=== PATIENT | male | born 1950 | race Caucasian/White ===

== ENCOUNTER 2017-01-19 19:20 | Emergency (ER) | payer MEDICARE ==
[~2017-01-19] VITALS: Ht 170.2 cm; Wt 65.0 kg
[~2017-01-19 19:20] MED LIST: ALPR0.5T3 PO; ASPI1TAB69 PO; BELL1TAB PO; LISI10TA3 PO; ROSU20 PO; TRIA.025%T TOPICAL; VENTAER INH; VITA500T PO; VITA60003; VITATAB11; ZETI10TA5 PO; ZITHTAB PO
[2017-01-19 19:22] VITALS: BP 174/84; PULSE 86; RESP 16; TEMP 98.6; O2SAT 95
--- NOTE | 2017-01-19 20:16 | PD ---
Physical Exam Time Seen by Provider: 20:13 Narrative 66 y/o male presents for evaluation of intermittent substernal cp for the past few days. denies CP at this time. Denies sob/diaphoresis/uri symptoms/nausea or vomiting. vss Seen at triage desk. Awaiting bed placement. Data Data Last Documented VS Vital Signs Date Time Temp Pulse Resp B/P Pulse Ox O2 Delivery O2 Flow Rate FiO2 01/19/17 19:22 98.6 86 16 174/84 95 Room Air [facility] Medical Record Reviewed: Yes Supervised Visit with CYNTHIA: Brandon Tang January 19, 2017 20:16
[2017-01-19] MEDS ORDERED: SODIUM CHLORIDE 0.9% FLUSH 10 ML FLUSH IVF PRN (21:15)
--- NOTE | 2017-01-19 21:17 | PD ---
HPI Chief Complaint: Chest Pain Time Seen by Provider: 21:13 Travel History International Travel<30 days: No Contact w/Intl Traveler<30days: No Traveled to known affect area: No History of Present Illness HPI Patient comes to the emergency Department for evaluation of right-sided upper chest pain ongoing intermittently over the past 3 days. Patient is a sharp stabbing-like in nature without radiation. Patient does take an aspirin a day and took it today. Patient reports he took a Zantac seem to help a little bit with his symptoms. Patient denies anything making it worse. Denies any shortness of breath, diaphoresis, nausea, vomiting, back pain, numbness or tingling anywhere, trauma, or fevers. Patient states initially the pain would come and go however has become more constant. Patient reports he did have a heart attack when he was 46, but this does not feel similar. Denies any change in pain with movement, deep inspiration, eating, leaning forward, or laying flat. Denies any dyspnea on exertion. PFSH Past Medical History Cardiovascular Problems: Yes ([place] age 46) High Cholesterol: Yes COPD: Yes Hypertension: Yes Social History Alcohol Use: Yes (occasional) Tobacco Use: Yes Allergies-Medications (Allergen,Severity, Reaction): Coded Allergies: Lopressor (Verified Adverse Reaction, Severe, Hypotension, 01/19/17) Reported Meds & Prescriptions Reported Meds & Active Scripts Active Crestor (Rosuvastatin Calcium) 20 Mg Tab 20 Mg PO DAILY Lisinopril 10 Mg Tab 10 Mg PO DAILY Triamcinolone Topical (Triamcinolone Acetonide) 0.025% Cream 1 Applic TOPICAL BID Reported Vitamin E (Vitamin E (Topical)) 100 Unit/Gm Cre Vitamin C (Ascorbic Acid) 500 Mg Tab 500 Mg PO Vitamin B Complex (B-Complex Vitamins) 1 Tab Aspirin 81 Mg Tabdr 81 Mg PO DAILY Ventolin Hfa 18 GM Inh (Albuterol Sulfate) 90 Mcg/Act Aer 2 Puff INH Q4-6H PRN Alprazolam 0.5 Mg Tab 0.5 Mg PO Q8H PRN Review of Systems Except as stated in HPI: all other systems reviewed are Neg Physical Exam Narrative GENERAL: Well-developed, well nourished, in no acute distress, and non-ill appearing. SKIN: Focused skin assessment warm and dry. HEAD: Atraumatic. Normocephalic. EYES: Pupils equal and round. EOMI. No scleral icterus. No injection or drainage. ENT: No nasal bleeding or discharge. Mucous membranes pink and moist. NECK: Trachea midline. No JVD. Supple. No nuclear rigidity. CARDIOVASCULAR: Regular rate and rhythm. No murmur appreciated. Radial pulses 2+, intact, and equal bilaterally. RESPIRATORY: No accessory muscle use. No respiratory distress. Clear to auscultation. Breath sounds equal bilaterally. GASTROINTESTINAL: Abdomen soft, non-tender, nondistended. Hepatic and splenic margins not palpable. No pulsatile mass. MUSCULOSKELETAL: No obvious deformities. No clubbing. No cyanosis. No edema. Full range of motion. NEUROLOGICAL: Awake and alert. No obvious cranial nerve deficits. Motor grossly within normal limits. Normal speech. PSYCHIATRIC: Appropriate mood and affect; insight and judgment normal. Data Data Last Documented VS Vital Signs Date Time Temp Pulse Resp B/P Pulse Ox O2 Delivery O2 Flow Rate FiO2 01/19/17 23:00 65 16 142/90 97 01/19/17 21:23 Room Air 01/19/17 19:22 98.6 Orders Electrocardiogram (01/19/17 ) Basic Metabolic Panel (Bmp) (01/19/17 21:12) Ckmb (Isoenzyme) Profile (01/19/17 21:12) Complete Blood Count With Diff (01/19/17 21:12) Magnesium (Mg) (01/19/17 21:12) Prothrombin Time / Inr (Pt) (01/19/17 21:12) Act Partial Throm Time (Ptt) (01/19/17 21:12) Troponin I (01/19/17 21:12) Chest, Single Ap (01/19/17 21:12) Ecg Monitoring (01/19/17 21:12) Bilateral Bp Monitoring (01/19/17 21:12) Iv Access Insert/Monitor (01/19/17 21:12) Oximetry (01/19/17 21:12) Oxygen Administration (01/19/17 21:12) Sodium Chloride 0.9% Flush (Ns Flush) (01/19/17 21:15) Labs Laboratory Tests Test 01/19/17 21:15 White Blood Count 9.7 TH/MM3 Red Blood Count 5.47 MIL/MM3 Hemoglobin 16.6 GM/DL Hematocrit 49.8 % Mean Corpuscular Volume 91.1 FL Mean Corpuscular Hemoglobin 30.3 PG Mean Corpuscular Hemoglobin 33.3 % Concent Red Cell Distribution Width 13.3 % Platelet Count 248 TH/MM3 Mean Platelet Volume 8.2 FL Neutrophils (%) (Auto) 53.1 % Lymphocytes (%) (Auto) 28.8 % Monocytes (%) (Auto) 9.7 % Eosinophils (%) (Auto) 5.9 % Basophils (%) (Auto) 2.5 % Neutrophils # (Auto) 5.2 TH/MM3 Lymphocytes # (Auto) 2.8 TH/MM3 Monocytes # (Auto) 0.9 TH/MM3 Eosinophils # (Auto) 0.6 TH/MM3 Basophils # (Auto) 0.2 TH/MM3 CBC Comment DIFF FINAL Differential Comment Prothrombin Time 10.2 SEC Prothromb Time International 0.9 RATIO Ratio Activated Partial 28.8 SEC Thromboplast Time Sodium Level 137 MEQ/L Potassium Level 4.5 MEQ/L Chloride Level 103 MEQ/L Carbon Dioxide Level 27.0 MEQ/L Anion Gap 7 MEQ/L Blood Urea Nitrogen 17 MG/DL Creatinine 1.26 MG/DL Estimat Glomerular Filtration 58 ML/MIN Rate Random Glucose 86 MG/DL Calcium Level 8.9 MG/DL Magnesium Level 2.4 MG/DL Total Creatine Kinase 98 U/L Troponin I LESS THAN 0.02 NG/ML MDM Medical Decision Making Medical Screen Exam Complete: Yes Emergency Medical Condition: Yes Interpretation(s) EKG reviewed by Dr. Feldman shows sinus rhythm with a ventricular rate of 80. No STEMI. Differential Diagnosis Acute coronary syndrome, angina, pneumonia, electrolyte abnormality, other Narrative Course The patients chest pain by history and evaluation appears noncardiac, nor noncardiopulmonary in etiology. Evaluation revealed no evidence of cardiac involvement at this time. There is no clinical evidence to suggest thoracic aortic aneurysm or pathology, nor evidence to suggest pulmonary embolism, pericarditis, pneumothorax, nor pneumonia at this time. The patient has minimal risk factors for cardiac disease, pulmonary embolism or aortic disease. Clinical suspicion was discussed with patient and the patient was referred to and instructed to follow up with Cardiology for potential outpatient evaluation. I discussed this management with the patient and the patient understands the importance or acute follow up with cardiology for possible outpatient stress testing. The patient was instructed to return at any time if chest pain recurs, persists, changes or worsens in anyway while awaiting follow up. The patient agreed with plan. Patient in no obvious distress upon re-evaluation. All pertinent laboratory/ Radiology result(s) discussed with patient/family. Discussed patient with Dr. Feldman prior to discharge, who is in agreement with plan of care and disposition. Any questions/concerns in reference to patient diagnosis/condition discussed and clarified prior to patient's discharge. Reinforced sheer importance of close follow up with patient's primary physician or primary care clinic. Instructed patient to return to ED immediately, if symptoms return/ worsen. Pt showed understanding of above instructions. Further instructions and recommendations were detailed in discharge paperwork. Pt ambulated without difficulty out of ED at discharge. 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 Return to the emergency department if symptoms get worse. Disposition: 01 DISCHARGE HOME Condition: Stable Kushal Henry January 19, 2017 21:17
[2017-01-19 21:22] VITALS: O2SAT 95
[2017-01-19 21:34] VITALS: BP_SYST 123; BP_SYST 147; BP_DIAS 81; BP_DIAS 84; PULSE 65; PULSE 67; RESP 16
--- NOTE | 2017-01-19 21:40 | RADRPT ---
EXAM DATE/TIME: 01/19/2017 21:09 [facility] COMPARISON: No previous studies available for comparison. INDICATIONS : Right upper chest pain. MEDICAL HISTORY : Chronic obstructive pulmonary disease. Smoking. SURGICAL HISTORY : Angioplasty. ENCOUNTER: Initial ACUITY: 3 days PAIN SCORE: 6/10 LOCATION: Right upper chest FINDINGS: A single view of the chest demonstrates the lungs to be symmetrically aerated without evidence of mas s, infiltrate or effusion. The cardiomediastinal contours are unremarkable. Osseous structures are intact. CONCLUSION: No evidence of acute cardiopulmonary disease. Tommie Tran MD on January 19, 2017 at 21:38 Board Certified Radiologist. This report was verified electronically.
[2017-01-19 22:20] LABS: AUTOMATED NEUTROPHIL # 5.2 TH/MM3 (1.8-7.7); BASOPHIL # 0.2 TH/MM3 (0-0.2); BASOPHIL % 2.5 % (0.0-2.0); EOSINOPHIL # 0.6 TH/MM3 (0-0.4); EOSINOPHIL % 5.9 % (0.0-4.0); HEMATOCRIT 49.8 % (39.0-51.0); HEMO FLAGS DIFF FINAL; LYMPH % 28.8 % (9.0-44.0); LYMPHOCYTE # 2.8 TH/MM3 (1.0-4.8); MEAN CELL VOLUME 91.1 FL (80.0-100.0); MEAN CORPUSCULAR HEMOGLOBIN 30.3 PG (27.0-34.0); MEAN CORPUSCULAR HGB CONC 33.3 % (32.0-36.0); MONO % 9.7 % (0.0-8.0); NEUT % 53.1 % (16.0-70.0); PLATELET COUNT 248 TH/MM3 (150-450); RED BLOOD COUNT 5.47 MIL/MM3 (4.50-5.90); RED CELL DISTRIBUTION WIDTH 13.3 % (11.6-17.2); WHITE BLOOD COUNT 9.7 TH/MM3 (4.0-11.0)
[2017-01-19 22:32] LABS: ANION GAP 7 MEQ/L (5-15); BLOOD UREA NITROGEN 17 MG/DL (7-18); CHLORIDE 103 MEQ/L (98-107); GLOMERULAR FILTRATION RATE 58 ML/MIN (>89); MAGNESIUM 2.4 MG/DL (1.5-2.5); POTASSIUM 4.5 MEQ/L (3.5-5.1); SODIUM (NA) 137 MEQ/L (136-145)
[2017-01-19 22:33] LABS: APTT (PATIENT) 28.8 SEC (24.3-30.1); INTERNATIONAL NORMALIZED RATIO 0.9 RATIO; PROTHROMBIN TIME - PATIENT 10.2 SEC (9.8-11.6)
--- NOTE | 2017-01-19 22:33 | EKG ---
Date Performed: 01/19/2017 Time Performed: 20:32:37 PTAGE: 66 years EKG: Sinus rhythm NONSPECIFIC ST & T-WAVE ABNORMALITY BORDERLINE ECG NO PREVIOUS TRACING DOCTOR: Isac Jackson Interpretating Date/Time 01/19/2017 22:32:23
[2017-01-19 22:40] LABS: CREATINE KINASE 98 U/L (39-308)
[2017-01-19 23:00] VITALS: BP 142/90; PULSE 65; RESP 16; O2SAT 97
[2017-02-09] MEDS ORDERED: VENTAER INH (12:01)
[2017-02-10] MEDS ORDERED: ALBUAER3 INH (12:10)
== END 2017-01-19 23:09 | disposition home or self-care (01) ==
LOC: NEPE 19:20
DX: R07.89 Other chest pain (principal); E78.00 Pure hypercholesterolemia, unspecified; J44.9 Chronic obstructive pulmonary disease, unspecified; I10 Essential (primary) hypertension; Z72.0 Tobacco use; Z79.82 Long term (current) use of aspirin
CPT/HCPCS: 71010; 80048; 82550; 83735; 84484; 85025; 85610; 85730; 93005

== ENCOUNTER 2018-02-02 20:55 | Inpatient (IN) | payer MEDICARE ==
[~2018-02-02] VITALS: Ht 170.2 cm; Wt 60.5 kg
[~2018-02-02 20:55] MED LIST changes: +ALBUAER3 INH; -BELL1TAB PO; +EZET10 PO; +SYMB80AE INH; -VENTAER INH; -ZETI10TA5 PO; -ZITHTAB PO
[2018-02-02 20:58] VITALS: BP 126/77; PULSE 75; RESP 18; TEMP 97.6; O2SAT 95
[2018-02-02] MEDS ORDERED: ASPI81CH6 CHEW (21:08)
[2018-02-02] MEDS ORDERED: ASCO500T PO (21:08)
--- NOTE | 2018-02-02 21:13 | PD ---
HPI Chief Complaint: Chest Pain Time Seen by Provider: 20:58 Travel History International Travel<30 days: No Contact w/Intl Traveler<30days: No Traveled to known affect area: No History of Present Illness HPI 67yo M with PMH of COPD, HTN presents to the ED with c/o midsternal chest pain that started about an hour ago. Said pain is achy, nonradiating and moderately severe. Associated with diaphoresis, sob, and nausea. Denies any fever, cough , vomiting, abdominal pain, focal weakness or numbness. Pt was seen in 01/2017 for atypical chest pain but did not follow up with third hand. Said he had cardiac cath 1995 and did not have stent place. Has not had recent stress test. PFSH Past Medical History Anxiety: Yes Cardiac Catheterization: Yes Cardiovascular Problems: Yes ([place] age 46) High Cholesterol: Yes COPD: Yes Coronary Artery Disease: Yes Hypertension: Yes Tetanus Vaccination: Unknown Influenza Vaccination: No Past Surgical History Other Surgery: Yes (ILIAC ARTERY STENT) Social History Alcohol Use: No Tobacco Use: Yes Substance Use: No Allergies-Medications (Allergen,Severity, Reaction): Coded Allergies: metoprolol (Verified Adverse Reaction, Severe, Hypotension, 02/02/18) Reported Meds & Prescriptions Reported Meds & Active Scripts Active Crestor (Rosuvastatin Calcium) 20 Mg Tab 20 Mg PO DAILY Lisinopril 10 Mg Tab 10 Mg PO DAILY Symbicort Inh (Budesonide/Formoterol Fumarate) 80-4.5 Mcg/Act Aero 2 Puff INH Q12HR Proair Hfa 8.5 GM Inh (Albuterol Sulfate) 90 Mcg/Act Aer 2 Puff INH Q4-6H PRN 108 mcg/actuation Triamcinolone Topical (Triamcinolone Acetonide) 0.025% Cream 1 Applic TOPICAL BID Reported Aspirin Low Dose (Aspirin) 81 Mg Chew 81 Mg CHEW DAILY Ascorbic Acid 500 Mg Tab 500 Mg PO DAILY Zetia (Ezetimibe) 10 Mg Tab 10 Mg PO DAILY Vitamin E (Vitamin E (Topical)) 100 Unit/Gm Cre Vitamin B Complex (B-Complex Vitamins) 1 Tab Alprazolam 0.5 Mg Tab 0.5 Mg PO Q8H PRN Review of Systems Except as stated in HPI: all other systems reviewed are Neg Physical Exam Narrative GENERAL: 67yo M in mild distress. SKIN: Focused skin assessment warm/dry. HEAD: Atraumatic. Normocephalic. EYES: Pupils equal and round. No scleral icterus. No injection or drainage. ENT: No nasal bleeding or discharge. Mucous membranes pink and moist. NECK: Trachea midline. No JVD. CARDIOVASCULAR: Regular rate and rhythm. No murmur appreciated. RESPIRATORY: No accessory muscle use. Clear to auscultation. Breath sounds equal bilaterally. GASTROINTESTINAL: Abdomen soft, non-tender, nondistended. H MUSCULOSKELETAL: No obvious deformities. No clubbing. No cyanosis. No edema. NEUROLOGICAL: Awake and alert. No obvious cranial nerve deficits. Motor grossly within normal limits. Normal speech. PSYCHIATRIC: Appropriate mood and affect; insight and judgment normal. Data Data Last Documented VS Vital Signs Date Time Temp Pulse Resp B/P (MAP) Pulse Ox O2 Delivery O2 Flow Rate FiO2 02/02/18 22:10 81 18 166/87 (113) 97 Nasal Cannula 2.00 02/02/18 20:58 97.6 Orders Orders Basic Metabolic Panel (Bmp) (02/02/18 21:06) Complete Blood Count With Diff (02/02/18 21:06) Magnesium (Mg) (02/02/18 21:06) Prothrombin Time / Inr (Pt) (02/02/18 21:06) Act Partial Throm Time (Ptt) (02/02/18 21:06) Troponin I (02/02/18 21:06) Chest, Single Ap (02/02/18 21:06) Electrocardiogram (02/02/18 ) Morphine Inj (Morphine Inj) (02/02/18 21:15) Morphine Inj (Morphine Inj) (02/02/18 22:00) Morphine Inj (Morphine Inj) (02/02/18 22:15) Labs Laboratory Tests Test 02/02/18 21:05 White Blood Count 11.4 TH/MM3 Red Blood Count 5.05 MIL/MM3 Hemoglobin 15.3 GM/DL Hematocrit 45.6 % Mean Corpuscular Volume 90.5 FL Mean Corpuscular Hemoglobin 30.4 PG Mean Corpuscular Hemoglobin Concent 33.6 % Red Cell Distribution Width 14.0 % Platelet Count 253 TH/MM3 Mean Platelet Volume 8.0 FL Neutrophils (%) (Auto) 50.9 % Lymphocytes (%) (Auto) 31.6 % Monocytes (%) (Auto) 9.6 % Eosinophils (%) (Auto) 5.5 % Basophils (%) (Auto) 2.4 % Neutrophils # (Auto) 5.8 TH/MM3 Lymphocytes # (Auto) 3.6 TH/MM3 Monocytes # (Auto) 1.1 TH/MM3 Eosinophils # (Auto) 0.6 TH/MM3 Basophils # (Auto) 0.3 TH/MM3 CBC Comment DIFF FINAL Differential Comment Prothrombin Time 9.6 SEC Prothromb Time International Ratio 0.9 RATIO Activated Partial Thromboplast Time 22.6 SEC Blood Urea Nitrogen 15 MG/DL Creatinine 1.38 MG/DL Random Glucose 124 MG/DL Calcium Level 8.4 MG/DL Magnesium Level 2.1 MG/DL Sodium Level 140 MEQ/L Potassium Level 3.9 MEQ/L Chloride Level 106 MEQ/L Carbon Dioxide Level 25.6 MEQ/L Anion Gap 8 MEQ/L Estimat Glomerular Filtration Rate 52 ML/MIN Troponin I LESS THAN 0.02 NG/ML MDM Medical Decision Making Medical Screen Exam Complete: Yes Emergency Medical Condition: Yes Interpretation(s) EKG: NSR 69bpm. Normal axis. TWI V2-V6, I and aVL. TWI are new compare to 2016. Differential Diagnosis ACS vs. pneumonia vs. costochondritis Narrative Course 67yo M with ?CAD, HTN here with typical chest pain. Pt was given aspirin and sublingual nitro x3 and still in pain. Will give morphine 2mg IV. Labs reviewed, no leukocytosis. Creatinine mildly elevated at 1.38 which is only slightly elevated from 1.26 from 2017. Troponin negative. CXR negative. Pt was still in a lot of pain so given another dose of morphine. Pt reevaluated at bedside and chest pain has improved. Will admit to chest pain center for serial EKG and cardiac enzymes. Diagnosis Primary Impression: CHEST PAIN, UNSPECIFIED Admitting Information Admitting Physician Requests: Ashley Franco DO February 02, 2018 21:13
[2018-02-02] MEDS ORDERED: MORPHINE SULFATE 4 MG/ML INJ IV PUSH ONE ×2 (21:15→22:15)
[2018-02-02 21:21] VITALS: O2SAT 92; O2SAT 93
[2018-02-02 21:35] VITALS: BP 126/88; PULSE 64; RESP 18; O2SAT 97
[2018-02-02 21:37] LABS: AUTOMATED NEUTROPHIL # 5.8 TH/MM3 (1.8-7.7); BASOPHIL # 0.3 TH/MM3 (0-0.2); BASOPHIL % 2.4 % (0.0-2.0); EOSINOPHIL # 0.6 TH/MM3 (0-0.4); EOSINOPHIL % 5.5 % (0.0-4.0); HEMATOCRIT 45.6 % (39.0-51.0); HEMOGLOBIN 15.3 GM/DL (13.0-17.0); LYMPH % 31.6 % (9.0-44.0); LYMPHOCYTE # 3.6 TH/MM3 (1.0-4.8); MEAN CELL VOLUME 90.5 FL (80.0-100.0); MEAN CORPUSCULAR HEMOGLOBIN 30.4 PG (27.0-34.0); MEAN CORPUSCULAR HGB CONC 33.6 % (32.0-36.0); MONO % 9.6 % (0.0-8.0); MONOCYTE # 1.1 TH/MM3 (0-0.9); NEUT % 50.9 % (16.0-70.0); PLATELET COUNT 253 TH/MM3 (150-450); RED BLOOD COUNT 5.05 MIL/MM3 (4.50-5.90); WHITE BLOOD COUNT 11.4 TH/MM3 (4.0-11.0)
--- NOTE | 2018-02-02 21:45 | RADRPT ---
EXAM DATE/TIME: 02/02/2018 21:12 [facility] COMPARISON: CHEST SINGLE AP, January 19, 2017, 21:09. INDICATIONS : Chest pain. MEDICAL HISTORY : Hypertension. Chronic obstructive pulmonary disease. Smoker. SURGICAL HISTORY : None. ENCOUNTER: Initial ACUITY: 1 day PAIN SCORE: 7/10 LOCATION: Bilateral upper chest FINDINGS: Stable mild scarring at the left lung base with slight blunting of the costophrenic angles. Cardiac c ontours are stable. CONCLUSION: Stable chest appearance. Tommie Gu MD on February 02, 2018 at 21:42 Board Certified Radiologist. This report was verified electronically.
[2018-02-02 21:51] LABS: INTERNATIONAL NORMALIZED RATIO 0.9 RATIO; PROTHROMBIN TIME - PATIENT 9.6 SEC (9.8-11.6)
[2018-02-02] MEDS ORDERED: MORPHINE SULFATE 2 MG/ML SYRINGE IV PUSH ONE (22:00)
[2018-02-02 22:04] LABS: BICARBONATE 25.6 MEQ/L (21.0-32.0); BLOOD UREA NITROGEN 15 MG/DL (7-18); CALCIUM 8.4 MG/DL (8.5-10.1); CHLORIDE 106 MEQ/L (98-107); CREATININE 1.38 MG/DL (0.60-1.30); GLOMERULAR FILTRATION RATE 52 ML/MIN (>89); GLUCOSE,RANDOM 124 MG/DL (74-106); MAGNESIUM 2.1 MG/DL (1.5-2.5); SODIUM (NA) 140 MEQ/L (136-145)
[2018-02-02 22:09] LABS: TROPONIN I LESS THAN 0.02 NG/ML (0.02-0.05)
[2018-02-02 22:10] VITALS: BP 166/87; PULSE 81; RESP 18; O2SAT 97
[2018-02-02] MEDS ORDERED: IOHEXOL 350 MG/ML 100 ML BTL (for Cath Lab) OTHER ONE (22:28)
[2018-02-02] MEDS ORDERED: SODIUM CHLORIDE 0.9% FLUSH 10 ML FLUSH IV FLUSH PRN (22:30)
[2018-02-02 23:14] VITALS: BP 163/87; PULSE 70; RESP 16; TEMP 97.4; O2SAT 99
[2018-02-03] VITALS (12 sets, daily range): BP systolic 108–126; BP diastolic 36–84; PULSE 75–99; RESP 14–20; TEMP 97.5–98.2; O2SAT 94–99
[2018-02-03 01:32] LABS: TROPONIN I 0.17 NG/ML (0.02-0.05)
[2018-02-03] MEDS ORDERED: ENOXAPARIN SODIUM 60 MG/0.6 ML SYRINGE SQ ONE (02:30)
[2018-02-03] MEDS ORDERED: ASPIRIN 325 MG TAB PO ONE (02:30)
[2018-02-03] MEDS ORDERED: SODIUM CHLOR 0.9% 1000 ML INJ 1,000 ML IV SCH ×2 (02:45→12:09)
[2018-02-03] MEDS ORDERED: MORPHINE SULFATE 4 MG/ML INJ IV PUSH PRN (02:45)
[2018-02-03] MEDS ORDERED: ALPRAZolam 0.5 MG TAB PO PRN (02:45)
[2018-02-03] MEDS ORDERED: ALBUTEROL SULFATE 90 MCG/ACT HFA 8 GM INHALER INH PRN (02:45)
--- NOTE | 2018-02-03 02:49 | HHI.HP ---
[facility] Primary Care Physician JOHN Avila Admission Diagnosis Chest pain Diagnoses: (1) NSTEMI (non-ST elevated myocardial infarction) Diagnosis: Principal Chief Complaint: chest pain Travel History International Travel<30 Days: No Contact w/Intl Traveler <30 Da: No Traveled to Known Affected Are: No History of Present Illness patient is a 67 y/o male with history of CAD,hypertension, PVD, dyslipidemia and COPD who presented to ER with chest pain. he says that he was finishing his dinner when he started to have chest pain. pain was ' pressure-type' and midsternal with no radiation. pain was associated with nausea and diaphoresis.the pain didn't respond to nitro-however it was relieved with Morphine. he was pain free at the time of my evaluation. his last stress test was about two years ago which was reportedly normal. Review of Systems Constitutional: COMPLAINS OF: Diaphoretic episodes, DENIES: Fever, Weight loss , Chills, Night Sweats Eyes: DENIES: Blurred vision, Diplopia, Vision loss, Double Vision Ears, nose, mouth, throat: DENIES: Tinnitus, Vertigo, Throat pain, Epistaxis Respiratory: DENIES: Apneas, Cough, Snoring, Wheezing, Hemoptysis, Sputum production, Shortness of breath Cardiovascular: COMPLAINS OF: Chest pain, DENIES: Palpitations, Syncope, Dyspnea on Exertion, PND, Lower Extremity Edema, Orthopnea, Claudication Gastrointestinal: COMPLAINS OF: Nausea, DENIES: Abdominal pain, Black stools, Bloody stools, Constipation, Diarrhea, Vomiting, Difficulty Swallowing, Anorexia Genitourinary: DENIES: Urinary frequency, Urgency, Hematuria, Dysuria Musculoskeletal: DENIES: Joint pain, Muscle aches, Stiffness, Joint Swelling Integumentary: DENIES: Rash Neurologic: DENIES: Abnormal gait, Headache, Localized weakness, Paresthesias, Seizures, Speech Problems, Tremor, Poor Balance Psychiatric: DENIES: Anxiety, Confusion, Mood changes, Depression, Hallucinations, Agitation, Suicidal Ideation, Homicidal Ideation, Delusions Past Family Social History Past Medical History CAD/hypertension/dyslipidemia/COPD/PVD Past Surgical History angioplasty/ stent in the right lower extremity Reported Medications Crestor (Rosuvastatin Calcium) 20 Mg Tab 20 Mg PO DAILY Lisinopril 10 Mg Tab 10 Mg PO DAILY Symbicort Inh (Budesonide/Formoterol Fumarate) 80-4.5 Mcg/Act Aero 2 Puff INH Q12HR Proair Hfa 8.5 GM Inh (Albuterol Sulfate) 90 Mcg/Act Aer 2 Puff INH Q4-6H PRN 108 mcg/actuation Triamcinolone Topical (Triamcinolone Acetonide) 0.025% Cream 1 Applic TOPICAL BID Reported Aspirin Low Dose (Aspirin) 81 Mg Chew 81 Mg CHEW DAILY Ascorbic Acid 500 Mg Tab 500 Mg PO DAILY Zetia (Ezetimibe) 10 Mg Tab 10 Mg PO DAILY Vitamin E (Vitamin E (Topical)) 100 Unit/Gm Cre Vitamin B Complex (B-Complex Vitamins) 1 Tab Alprazolam 0.5 Mg Tab 0.5 Mg PO Q8H PRN Allergies: Coded Allergies: metoprolol (Verified Adverse Reaction, Severe, Hypotension, 02/02/18) Active Ordered Medications Inpatient Medications Aspirin (Aspirin) 325 mg ONCE ONCE PO ; Start 02/03/18 at 02:30; Stop 02/03/18 at 02:31; Status DC Enoxaparin Sodium (Lovenox Inj) 60 mg ONCE ONCE SQ ; Start 02/03/18 at 02:30; Stop 02/03/18 at 02:31; Status DC Morphine Sulfate (Morphine Inj) 4 mg ONCE ONCE IV PUSH Last administered on at 22:10; Start 02/02/18 at 22:15; Stop 02/02/18 at 22:16; Status DC Sodium Chloride (NS Flush) 2 ml BID IV FLUSH ; Start 02/03/18 at 09:00 Family History heart disease in father side. Social History smokes - drinks occasionally. Physical Exam Vital Signs Vital Signs Date Time Temp Pulse Resp B/P (MAP) Pulse Ox O2 Delivery O2 Flow Rate FiO2 02/03/18 00:47 79 02/02/18 23:14 97.4 70 16 163/87 (112) 99 02/02/18 22:57 02/02/18 22:10 81 18 166/87 (113) 97 Nasal Cannula 2.00 02/02/18 21:35 64 18 126/88 (101) 97 Nasal Cannula 2.00 02/02/18 21:21 92 Room Air 02/02/18 21:21 93 Nasal Cannula 2.00 02/02/18 21:02 95 Room Air 02/02/18 20:58 97.6 75 18 126/77 (93) 95 Physical Exam GENERAL: This is a well-nourished, well-developed patient, in no apparent distress. SKIN: No rashes, ecchymoses or lesions. Cool and dry. HEAD: Atraumatic. Normocephalic. No temporal or scalp tenderness. EYES: Pupils equal round and reactive. Extraocular motions intact. No scleral icterus. No injection or drainage. ENT: Nose without bleeding, purulent drainage or septal hematoma. Throat without erythema, tonsillar hypertrophy or exudate. Uvula midline. Airway patent. NECK: Trachea midline. No JVD or lymphadenopathy. Supple, nontender, no meningeal signs. CARDIOVASCULAR: Regular rate and rhythm without murmurs, gallops, or rubs. RESPIRATORY: Clear to auscultation. Breath sounds equal bilaterally. No wheezes , rales, or rhonchi. GASTROINTESTINAL: Abdomen soft, non-tender, nondistended. No hepato-splenomegaly , or palpable masses. No guarding. MUSCULOSKELETAL: Extremities without clubbing, cyanosis, or edema. No joint tenderness, effusion, or edema noted. No calf tenderness. Negative Homans sign bilaterally. NEUROLOGICAL: Awake and alert. Cranial nerves II through XII intact. Motor and sensory grossly within normal limits. Five out of 5 muscle strength in all muscle groups. Normal speech. Laboratory Laboratory Tests Test 02/02/18 21:05 02/03/18 00:45 White Blood Count 11.4 Red Blood Count 5.05 Hemoglobin 15.3 Hematocrit 45.6 Mean Corpuscular Volume 90.5 Mean Corpuscular Hemoglobin 30.4 Mean Corpuscular Hemoglobin Concent 33.6 Red Cell Distribution Width 14.0 Platelet Count 253 Mean Platelet Volume 8.0 Neutrophils (%) (Auto) 50.9 Lymphocytes (%) (Auto) 31.6 Monocytes (%) (Auto) 9.6 Eosinophils (%) (Auto) 5.5 Basophils (%) (Auto) 2.4 Neutrophils # (Auto) 5.8 Lymphocytes # (Auto) 3.6 Monocytes # (Auto) 1.1 Eosinophils # (Auto) 0.6 Basophils # (Auto) 0.3 CBC Comment DIFF FINAL Differential Comment Prothrombin Time 9.6 Prothromb Time International Ratio 0.9 Activated Partial Thromboplast Time 22.6 Blood Urea Nitrogen 15 Creatinine 1.38 Random Glucose 124 Calcium Level 8.4 Magnesium Level 2.1 Sodium Level 140 Potassium Level 3.9 Chloride Level 106 Carbon Dioxide Level 25.6 Anion Gap 8 Estimat Glomerular Filtration Rate 52 Troponin I LESS THAN 0.02 0.17 Total Creatine Kinase 96 Result Diagram: 02/02/18210402/02/182104 Imaging Last Impressions Chest X-Ray 02/02/182105 Signed Impressions: Service Date/Time: Friday, February 02, 2018 21:12 - CONCLUSION: Stable chest appearance. Tommie Gu MD EKG; sinus rhythm with no acute ST-T changes Caprini VTE Risk Assessment Caprini VTE Risk Assessment: Mod/High Risk (score >= 2) Caprini Risk Assessment Model Point Value = 1 Point Value = 2 Point Value = 3 Point Value = 5 Age 41-60 Minor surgery BMI > 25 kg/m2 Swollen legs Varicose veins or History of unexplained or recurrent spontaneous Oral contraceptives or hormone replacement Sepsis (< 1 month) Serious lung disease, including pneumonia (< 1 month) Abnormal pulmonary function Acute myocardial infarction Congestive heart failure (< 1 month) History of inflammatory bowel disease Medical patient at bed rest Age 61-74 Arthroscopic surgery Major open surgery (> 45 min) Laparoscopic surgery (> 45 min) Malignancy Confined to bed (> 72 hours) Immobilizing plaster cast Central venous access Age >= 75 History of VTE Family history of VTE Factor V Leiden Prothrombin [id number] Lupus anticoagulant Anticardiolipin antibodies Elevated serum homocysteine Heparin-induced thrombocytopenia Other congenital or acquired thrombophilia Stroke (< 1 month) Elective arthroplasty Hip, pelvis, or leg fracture Acute spinal cord injury (< 1 month) Prophylaxis Regimen Total Risk Factor Score Risk Level Prophylaxis Regimen 0-1 Low Early ambulation 2 Moderate Order ONE of the following: *Sequential Compression Device (SCD) *Heparin 5000 units SQ BID 3-4 Higher Order ONE of the following medications: *Heparin 5000 units SQ TID *Enoxaparin/Lovenox 40 mg SQ daily (WT < 150 kg, CrCl > 30 mL/min) *Enoxaparin/Lovenox 30 mg SQ daily (WT < 150 kg, CrCl > 10-29 mL/min) *Enoxaparin/Lovenox 30 mg SQ BID (WT < 150 kg, CrCl > 30 mL/min) AND/OR *Sequential Compression Device (SCD) 5 or more Highest Order ONE of the following medications: *Heparin 5000 units SQ TID (Preferred with Epidurals) *Enoxaparin/Lovenox 40 mg SQ daily (WT < 150 kg, CrCl > 30 mL/min) *Enoxaparin/Lovenox 30 mg SQ daily (WT < 150 kg, CrCl > 10-29 mL/min) *Enoxaparin/Lovenox 30 mg SQ BID (WT < 150 kg, CrCl > 30 mL/min) AND *Sequential Compression Device (SCD) Assessment and Plan Assessment and Plan A/P - NSTEMI with history of CAD/ angioplasty received a dose of Lovenox and Aspirin- will keep the patient NPO for now- pending the cardiac enzyme trend and cardiology evaluation. resume aspirin and statin- -hypertension/ dyslipidemia; resume home meds -acute kidney injury; start on IV fluid- will monitor the renal function. -COPD with no exacerbation; resume home inhalers -DVT prophylaxis; received a dose of Lovenox- pending cardiology consult. Discussed Condition With the patient and RN. Kati Romero MD February 03, 2018 02:49
[2018-02-03 04:30] LABS: TROPONIN I 0.97 NG/ML (0.02-0.05)
[2018-02-03 07:39] LABS: BICARBONATE 26.8 MEQ/L (21.0-32.0); CALCIUM 8.3 MG/DL (8.5-10.1); CHOLESTEROL/ HDL RATIO 2.24 RATIO; CREATININE 1.34 MG/DL (0.60-1.30); HDL CHOLESTEROL 61.8 MG/DL (40.0-60.0)
--- NOTE | 2018-02-03 07:46 | MB ---
cc: Brigido Taylor MD DATE: 02/03/2018 REASON FOR CONSULTATION: Non-ST elevation myocardial infarction. HISTORY OF PRESENT ILLNESS: This is a very nice 67-year-old gentleman who has a history of coronary artery disease with prior myocardial infarction, percutaneous transluminal coronary angioplasty to the left circumflex back in 1995, followed by claudication symptoms and intervention with a right iliac stent around that time. He also has a history of hyperlipidemia and COPD. He presented to the emergency department with an acute onset of substernal chest pain. The patient states that he had a vodka and tonic just prior to dinner. He started developing this substernal chest pain without radiation. It was associated with some nausea, diaphoresis and he took a nitroglycerin without much relief. He came into the emergency department and got morphine in addition to nitro and symptoms subsided. He was initially admitted to the chest pain center, but troponin ruled in for non-ST elevation myocardial infarction. Also, he denies any recent anginal symptoms. PAST MEDICAL HISTORY: Coronary disease as mentioned above, peripheral arterial disease, as mentioned above, hypertension, hyperlipidemia, COPD. REPORTED MEDICATIONS: 1. Crestor. 2. Lisinopril. 3. Symbicort. 4. ProAir. ALLERGIES: METOPROLOL. FAMILY HISTORY: Denies any family history of early coronary disease or sudden cardiac , although he has heart disease on his father's side. SOCIAL HISTORY: He does report to tobacco use, a pack a day with occasional alcohol use. REVIEW OF SYSTEMS: A 12-point review of system was performed and is negative unless otherwise as noted in the history of present illness. PHYSICAL EXAMINATION: VITAL SIGNS: Temperature 98, pulse 76, blood pressure 120/68 mmHg. GENERAL: Alert and oriented x 3 in no acute distress. HEENT: Shows pupils are reactive to accommodation. Extraocular muscles intact. No elevation of jugular venous distention. No thyromegaly, no lymphadenopathy, no carotid bruits. LUNGS: Clear to auscultation bilaterally. HEART: Regular rate and rhythm without murmurs, rubs or gallops. ABDOMEN: Nontender, nondistended, good bowel sounds, no hepatosplenomegaly. EXTREMITIES: Shows no cyanosis, clubbing or edema. Good peripheral pulses. NEUROLOGIC: Cranial nerves intact. Motor and sensory grossly intact. LABORATORY DATA: WBC 11.4, hemoglobin 15.3, platelet count 253. INR 0.9. Sodium 140, potassium 3.9, BUN is 15, creatinine is 1.38. Troponins 0.02 up to 0.17, up to 0.97. ASSESSMENT: 1. Non-ST elevation myocardial infarction. 2. History of peripheral arterial disease. 3. History of coronary artery disease with prior percutaneous transluminal coronary angioplasty to the left circumflex. 4. Hypertension. 5. Hyperlipidemia. PLAN: The patient's symptoms are suggestive of his prior history of known coronary disease, although has done really well for the last 10 years. He originally had all his procedures done in [place]. 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 Denies any claudication symptoms. Discussed risks, benefits, and alternatives with the patient. He is agreeable to proceed with cardiac catheterization. We will make him n.p.o. He has intravenous fluids running given his mildly elevated creatinine. Brigido Taylor MD BAILEY/DL , 07:29 AM , 07:45 AM
[2018-02-03] MEDS: EZETIMIBE 10 MG TAB PO SCH (07:54)
[2018-02-03] MEDS: SODIUM CHLORIDE 0.9% FLUSH 10 ML FLUSH IV FLUSH SCH ×2 (07:55→21:00)
--- NOTE | 2018-02-03 08:38 | EKG ---
Date Performed: 02/03/2018 Time Performed: 03:34:01 PTAGE: 67 years EKG: Sinus rhythm NONSPECIFIC T-WAVE ABNORMALITY BORDERLINE ECG PREVIOUS TRACING : 02/02/2018 22.47 Since previous tracing, no significant change noted DOCTOR: Jordan Walters Interpretating Date/Time 02/03/2018 08:37:54
--- NOTE | 2018-02-03 08:39 | EKG ---
Date Performed: 02/02/2018 Time Performed: 21:03:14 PTAGE: 67 years EKG: Sinus rhythm WITH SINUS ARRHYTHMIA NONSPECIFIC T-WAVE ABNORMALITY BORDERLINE ECG PREVIOUS TRACING : 01/19/2017 20.32 Since previous tracing, no significant change noted DOCTOR: Jordan Walters Interpretating Date/Time 02/03/2018 08:39:12
--- NOTE | 2018-02-03 08:39 | EKG ---
Date Performed: 02/02/2018 Time Performed: 22:47:56 PTAGE: 67 years EKG: Sinus rhythm NONSPECIFIC T-WAVE ABNORMALITY BORDERLINE ECG PREVIOUS TRACING : 02/02/2018 21.03 Since previous tracing, no significant change noted DOCTOR: Jordan Walters Interpretating Date/Time 02/03/2018 08:38:44
[2018-02-03] MEDS ORDERED: ATORVASTATIN 40 MG TAB PO SCH (09:00)
[2018-02-03] MEDS ORDERED: LISINOPRIL 10 MG TAB PO SCH (09:00)
[2018-02-03] MEDS ORDERED: HEPARIN-NS/PF FLUSH BAG 2,000 ML IV FLUSH ONE (10:50)
[2018-02-03] MEDS ORDERED: NITROGLYCERIN INJ 5 ML ONE (10:51)
[2018-02-03] MEDS ORDERED: HEPARIN SODIUM - IV 10,000 UNITS/10 ML VIAL ONE ×2 (10:51→13:44)
[2018-02-03] MEDS ORDERED: MIDAZOLAM HCL 2 MG/2 ML VIAL ONE (10:51)
[2018-02-03] MEDS ORDERED: NITROGLYCERIN 400 MCG/SPRAY 4.9 GM BOTTLE SL ONE (11:31)
[2018-02-03] MEDS ORDERED: NITROGLYCERIN-D5W 50 MG/250 ML 250 ML ONE (11:35)
[2018-02-03] MEDS ORDERED: hydrALAZINE HCL 20 MG/ML VIAL ONE ×2 (11:35→11:58)
[2018-02-03] MEDS ORDERED: HEPARIN-D5W 25,000 U/250 ML 250 ML ONE (11:58)
[2018-02-03] MEDS ORDERED: PHENYLEPH/NS 1000 MCG/10 ML SYR IV ONE (12:00)
[2018-02-03] MEDS ORDERED: PHENYLEPHRINE HCL 10 MG/ML VIAL IV ONE (12:00)
[2018-02-03] MEDS ORDERED: PROTAMINE SULFATE 250 MG/25 ML VIAL IV ONE (12:00)
[2018-02-03] MEDS ORDERED: DEXMEDETOMIDINE HCL 200 MCG/2 ML VIAL IV ONE (12:00)
[2018-02-03] MEDS ORDERED: NEOSTIGMINE METHYLSULFATE 10 MG/10 ML VIAL IV PUSH ONE (12:00)
[2018-02-03] MEDS ORDERED: VECURONIUM BROMIDE 10 MG VIAL IV ONE (12:00)
[2018-02-03] MEDS ORDERED: LACTATED RINGER'S 1000 ML INJ 2,000 ML IV ONE (12:00)
[2018-02-03] MEDS ORDERED: ePHEDrine/NS 25 MG/5 ML SYRINGE IV ONE (12:00)
[2018-02-03] MEDS ORDERED: GLYCOPYRROLATE 0.2 MG/ML VIAL IV ONE (12:00)
[2018-02-03] MEDS ORDERED: MAGNESIUM SULFATE 1 GM/2 ML VIAL IV ONE (12:00)
[2018-02-03] MEDS ORDERED: NORMOSOL R INJ 2,000 ML IV ONE (12:00)
[2018-02-03] MEDS ORDERED: AMINOCAPROIC ACID INJ 250 MG/ML 20 ML VIAL IV ONE (12:00)
[2018-02-03] MEDS ORDERED: HEPARIN SODIUM - SQ 10,000 UNITS/ML VIAL OTHER ONE (12:00)
[2018-02-03] MEDS ORDERED: SODIUM CHLOR 0.9% 250 ML INJ 500 ML IV ONE (12:00)
[2018-02-03] MEDS ORDERED: hydrALAZINE HCL 20 MG/ML VIAL IV PUSH PRN ×2 (12:15→18:45)
[2018-02-03] MEDS ORDERED: MISC INFORMATION XX ONE (12:15)
[2018-02-03] MEDS ORDERED: CHLORHEXIDINE GLUCONATE 4% SOLN 120 ML BTL TOPICAL SCH (12:30)
[2018-02-03] MEDS ORDERED: ceFAZolin 2 GM PREMIX 50 ML IV SCH (12:30)
[2018-02-03] MEDS ORDERED: PAPAVERINE INJ 60 MG, NITROGLYCERIN INJ 100 MCG, DILTIAZEM INJ 100 MG in SODIUM CHLORID... IRRIGATION SCH (12:30)
[2018-02-03] MEDS ORDERED: SODIUM CHLORIDE 0.9% FLUSH 10 ML FLUSH IV FLUSH PRN (12:30)
[2018-02-03] MEDS ORDERED: DEXTROSE 50% IN WATER 50 ML VIAL(D50) IV PUSH PRN ×2 (12:30→18:45)
[2018-02-03] MEDS ORDERED: INSULIN REGULAR (IV INFUSION) 100 UNITS in SODIUM CHLORIDE 0.9% INJ 99 ML IV PRN ×2 (12:30→18:45)
[2018-02-03] MEDS ORDERED: CEFAZOLIN INJ 500 MG in SODIUM CHLORIDE 0.9% IRR BTL 500 ML IRRIGATION SCH (12:30)
--- NOTE | 2018-02-03 12:38 | CATHPROC ---
[employer] HIS Report Study Information Study Number Admission Scheduled Start Study Start [id number] Feb 02 2018 10:27PM 02/03/2018 Feb 03 2018 10:42AM [place] [facility] Cardiac Catheterization Admit Source Facility Department Emergency department [facility] - Sales Performance Analyst Physician and Clinical Staff Initial Brigido Dsouza Professor Of Early Childhood Education Checo GreerRN Recorder Irais Johnson,RT(R) Scrub Sofya Monique,DALLIN TECH2 Procedures Performed Procedure Location (Site) Vessel Name Angiogram LV LV Ventricle Coronary Angiograms LCA Left Coronary Coronary Angiograms RCA Right Coronary Coronary Angiograms RAMIREZ RAMIREZ IABP Fem Art (right) Femoral Art L Heart Cath Wire insertion Radial (right) Radial Art. Equipment Time Party Planner Description Size Mfg Part Number Used/Scraped TRANSDUCER, MEAGAN [id number] 10:52 GATICA ANDERSON * Used W/STOCKCOCK *[id number] *[id number] *[id number] BALLOON, FR8 50CC SENSATION [id number] 11:53 MAQUET FR 8 50CC Used PLUS 01U *[id number] 10:52 AWID PACK, CCL CUSTOM * Used *[id number] 10:52 AWID SUPPORT, ARTERIAL ADULT 21106 *[id number] Used [id number] 10:52 [employer] party supplies [employer] rentals PACER PEN, SKIN DUAL W/ RULER * Used *[id number] 11:22 MEDTRONIC JL 3.5 DXTERITY CATHETER FR 5 Used *[id number] 11:18 MEDTRONIC JR 5.0 DXTERITY CATHETER fr 5 [id number] Used BAND, RADIAL COMPRESSION TR [id number] 11:31 [employer] 24CM Used SHORT 24 *[id number] BAND, RADIAL COMPRESSION TR [id number] 12:11 [employer] 24CM Used SHORT 24 *[id number] SHEATH, FR6 RADIAL PRELUDE 10:52 [employer]ICAL FR 6 [id number] Used EASE 11CM [id number] 11:46 [employer]ICAL SHEATH, FR6.5 PRELUDE 11CM FR 6.5 [id number] Used *[id number] 11:28 [employer] WIRE, EXCHANGE 260CM 3MMJ 260CM Used *[id number] 10:52 [employer] MED[employer] WIRE, EXCHANGE 260CM 3MMJ 260CM Used *[id number] 10:52 [employer] OMNIPAQUE, 350 MG, 150ML 150ML [id number] Used 11:59 [employer]COMED OMNIPAQUE, 350 MG, 50ML 50ML [id number] Used [id number] 10:52 [place] [employer] BL[employer]ET,WARM AIR CCL * Used *[id number] Equipment Model, Serial, Lot Number and Expiration Data Description Model Number Serial Number Lot Number Expiration Date JR 5.0 DXTERITY CATHETER [id number] 04-23-2020 History: Current Medications Medication Dosage/Unit Route Frequency Last Date/Time Taken ASA LOVENOX History: Allergies Allergy Reaction metoprolol Hypotension History: Risk Factors Family History of Hypertension Dyslipidemia Previous TX Previous Heart Failure Premature CAD Yes Yes Yes Yes No Prior Valve Prior PCI Prior PCIDate Prior CABG Surgery No Yes 07/22/1996 No Cerebrovascular Peripheral Artery Chronic Lung On Dialysis Diabetes Disease Disease Disease No No Yes Yes No History: Risk Factors Selection Items Current Smoker History: Symptoms/Diagnosis Selection Items Chest pain History: Stress Tests Stress or Imaging Studies Performed No History: Other Disease Selection Items CAD HTN History: TX/CV Data Previous Cath Date 07/22/1996 History: Other Current Smoker Method Packs a Day Years Used Pack Years Yes Cigarettes 1 48 48 Labs Hgb (g/dl) Hct (%) WBC (l/cumm) Platelets (thousands) 11.60-17.00 35.00-51.00 4.00-11.00 150.00-450.00 15.3 45.6 11.4 253 Glucose (mg/dl) BUN (mg/dl) Creatinine (mg/dl) BUN:Creatinine (1:x) 74.00-106.00 7.00-18.00 0.50-1.30 10.00-20.00 124 15 1.3 11.5 Na (meq/l) K (meq/l) 136.00-145.00 3.50-5.10 140 3.9 INR (PTT:PT) 0.90-1.10 0.9 Troponin I (ng/ml) CPK (u/l) CPK-MB (ng/ML) 0.02-0.05 26.00-308.00 0.50-3.60 0.97 117 13.8 Medication Medication Total Dose (Bolus/Oral) Medication Total Dosage/Unit 1% XYLOCAINE 40 mL FENTANYL 50 mcg HEPARIN 5000 units HEPARIN 1000 units/hr HYDRALAZINE 30 mg NITROGLYCERIN S/L 0.8 mg RADIAL COCKTAIL 5 mL (Bolus) VERSED 2 mg Medications (Bolus/Oral) Medication Time Given Dosage/Unit Administered By Reason VERSED 02/03/2018 11:13:22 AM 2 mg Zoey, Checo 2 mg VERSED given by Checo Greer RN in Left Antecubital via Peripheral IV. FENTANYL 02/03/2018 11:14:47 AM 50 mcg Zoey, Checo 50 mcg FENTANYL given by Checo Greer RN via Peripheral IV. 1% XYLOCAINE 02/03/2018 11:16:01 AM 20 mL Brigido Taylor 20 mL 1% XYLOCAINE given by Brigido Taylor in Right Radial via Subcutaneous. RADIAL COCKTAIL 02/03/2018 11:18:02 AM 5 mL (Bolus) Brigido Taylor 5 mL (Bolus) RADIAL COCKTAIL given by Brigido Taylor via Radial. Using [Solution Name]. 200 nitro HEPARIN 02/03/2018 11:18:13 AM 5000 units Zoey, Checo 5000 units HEPARIN given by Checo Greer RN via Peripheral IV. NITROGLYCERIN S/L 02/03/2018 11:33:02 AM 0.4 mg Zoey, Checo 0.4 mg NITROGLYCERIN S/L given by Checo Greer RN via Sublingual. NITROGLYCERIN S/L 02/03/2018 11:34:12 AM 0.4 mg Zoey, Checo 0.4 mg NITROGLYCERIN S/L given by Checo Greer RN via Sublingual. HYDRALAZINE 02/03/2018 11:36:10 AM 10 mg Zoey, Checo 10 mg HYDRALAZINE given in lab by Checo Greer RN via Peripheral IV. Ordered by Brigido Taylor. 1% XYLOCAINE 02/03/2018 11:45:24 AM 20 mL Brigido Taylor 20 mL 1% XYLOCAINE given by Brigido Taylor in Right Groin via Subcutaneous. Ordered by Brigido Taylor . HYDRALAZINE 02/03/2018 11:46:50 AM 10 mg Zoey, Checo 10 mg HYDRALAZINE given in lab by Checo Greer RN via Peripheral IV. Ordered by Brigido Taylor. HYDRALAZINE 02/03/2018 11:59:04 AM 10 mg Zoey, Checo 10 mg HYDRALAZINE given in lab by Checo Greer RN via Peripheral IV. Ordered by Brigido Taylor. HEPARIN 02/03/2018 12:01:43 PM 1000 units/hr Checo Greer 1000 units/hr HEPARIN given in lab by Checo Grere RN via Peripheral IV. Pump/Drip Flow = 10 ml/hr u sing [Solution Name] [place] [address] units in 250 ml. Ordered by Brigido Taylor. Medication (Drip) Medication Time Given Dosage/Unit Concentration/Unit Diluent (ml) Solution IV Solutions 02/03/2018 10:48:00 AM 0 mL (IV) NaCl .9 Patient arrived on IV Solutions in Left Antecubital via Peripheral IV. Pump/Drip Flow = 20 ml/hr usin g NaCl .9. Ordered by Brigido Taylor. NITROGLYCERIN DRIP 02/03/2018 11:40:30 AM 10 mcg/min 50 mg 250 D5W 10 mcg/min NITROGLYCERIN DRIP given by Checo Greer RN via Peripheral IV. Pump/Drip Flow = 3 ml/hr u sing D5W with a concentration of 50 mg in 250 ml. NITROGLYCERIN DRIP 02/03/2018 11:44:24 AM 20 mcg/min 50 mg 250 D5W Increased to 20 mcg/min NITROGLYCERIN DRIP given by Checo Greer RN via Peripheral IV. Pump/Drip Dandre w = 6 ml/hr using D5W with a concentration of 50 mg in 250 ml. NITROGLYCERIN DRIP 02/03/2018 11:49:50 AM 30 mcg/min 50 mg 250 D5W Increased to 30 mcg/min NITROGLYCERIN DRIP given by Checo Greer RN via Peripheral IV. Pump/Drip Dandre w = 6 ml/hr using D5W with a concentration of 50 mg in 250 ml. Ordered by Brigido Taylor. NITROGLYCERIN DRIP 02/03/2018 11:51:58 AM 40 mcg/min 50 mg 250 D5W Increased to 40 mcg/min NITROGLYCERIN DRIP given by Checo Greer RN via Peripheral IV. Pump/Drip Dandre w = 12 ml/hr using D5W with a concentration of 50 mg in 250 ml. Ordered by Brigido Taylor. NITROGLYCERIN DRIP 02/03/2018 12:11:06 PM 50 mcg/min 50 mg 250 D5W increased to 50 mcg/min NITROGLYCERIN DRIP given by Checo Greer RN via Peripheral IV. Pump/Drip Dandre w = 15 ml/hr using D5W with a concentration of 50 mg in 250 ml. Ordered by Brigido Taylor. NITROGLYCERIN DRIP 02/03/2018 12:24:16 PM 60 mcg/min 50 mg 250 D5W increased to 60 mcg/min NITROGLYCERIN DRIP given by Checo Greer RN via Peripheral IV. Pump/Drip Dandre w = 18 ml/hr using D5W with a concentration of 50 mg in 250 ml. Ordered by Brigido Taylor. Initial Case Assessment Cardiovascular HR Rhythm NIBP Chest Pain 78 nsr 161/110 0 Edema Present Skin color Skin None Normal Warm Dry Circulatory - Right Pulses Dorsalis Pedis Femoral Radial 2 2 2 Scale (0,1,2,3,4,d) Scale (0,1,2,3,4,d) Neurological State Oriented to time-place- Alert Moves all extremities person Respiration - General Respiration Rate SpO2 (%) (B/min) 15 95 Final Case Assessment Cardiovascular HR Rhythm NIBP Chest Pain 100 reg 139/92 0 Edema Present Skin color Skin None Normal Warm Circulatory - Right Pulses Dorsalis Pedis Femoral Radial 2 2 2 Scale (0,1,2,3,4,d) Scale (0,1,2,3,4,d) Circulatory - Lower Extremities Color Lower Right Color Lower Left Normal Normal Neurological State Oriented to time-place- Alert Moves all extremities person Respiration - General Respiration Rate SpO2 (%) (B/min) 13 97 Final Case Assessment Cardiovascular HR Rhythm NIBP Chest Pain 120 nsr 153/76 0 Edema Present Skin color Skin None Normal Warm Dry Circulatory - Right Pulses Dorsalis Pedis Femoral Radial 2 2 2 Scale (0,1,2,3,4,d) Scale (0,1,2,3,4,d) Neurological State Oriented to time-place- Alert Moves all extremities person Respiration - General Respiration Rate SpO2 (%) (B/min) 17 97 Chronological Log Time Study Chronological Log 10:47:47 Patient arrived via Bed. Glucose 90 per ER nurse 10:47:48 Patient Name, D.O.B, / Armband Verified By R.N. 10:47:48 Consent signed by the physician and the patient and verified by the Sales Performance Analyst staff. 10:47:49 Pre-op and post- op instructions given; patient acknowledges understanding of instructions. 10:47:49 Verbal Stimulation=2 Physical Stimulation=2 Airway=2 Respiration=2 TOTAL=8. (0=absent, 1=li mited, 2=present) 10:47:50 Presedation assessment performed by Sales Performance Analyst RN. 10:47:54 Allens test performed on the right radial and ulnar artery. POSITIVE. 10:47:55 Immediate Presedation assesment performed by physician. 10:47:56 Patient has been NPO for More than 6Hrs. 10:47:57 Skin Breakdown- none per patient 10:47:57 Patient Warmer Placed on the Table. 10:47:58 Gaurav Prominences Protected 10:47:59 A # 20 IV was noted in the Antecubital (left). Grade = 0 Patient arrived on IV Solutions in Left Antecubital via Peripheral IV. Pump/Drip Flow = 20 ml/h r using NaCl .9. Ordered 10:48:00 by Brigido Taylor. 10:48:00 History and physical on the chart or being dictated. Vitals capture started with the following parameters, Patient=Adult, Interval=5 min, Initial Pr cdmpcc=505 mmHg, 10:51:14 Deflation Rate=5 mmHg, Cuff placed on Left Arm Vitals capture started with the following parameters, Patient=Adult, Interval=5 min, Initial Pr bexsnq=358 mmHg, 10:55:29 Deflation Rate=5 mmHg, Cuff placed on Left Arm Assessment: Initial Case, HR=78 BPM, Rhythm=nsr, RVHT=758/110 mmhg, Chest Pain=0, Edema=None, Color=Normal, Skin = Warm, Dry 10:55:32 Right Pulses: Carlo Ped=2, Femoral=2, Radial=2 Neurological: State=Alert, Ox3, BRAN Respiration: Resp=15 B/min, SpO2=95 % 10:56:05 HR=81 bpm, DSWJ=393/110 mmhg, SpO2=94.0 %, Resp=12 B/min, Pain=0, Gelacio=10, Hassan=2 10:56:14 Reference ECG taken 10:59:33 Right Radial and groin(s) prepped with 2% chlorhexidine, and draped after a 3 min. waiting time. 11:01:10 HR=71 bpm, HFMW=481/102 mmhg, SpO2=94.0 %, Resp=10 B/min, Pain=0, Gelacio=10, Hassan=2 11:03:27 MD paged 11:06:13 HR=75 bpm, CHFG=714/102 mmhg, SpO2=94.0 %, Resp=12 B/min, Pain=0, Gelacio=10, Hassan=2 11:06:19 MD responded 11:06:49 Pressure channel 1 zero failed. 11:06:59 Pressure channel 1 zeroed. 11:11:07 MD arrived. 11:11:10 HR=80 bpm, RGAG=414/92 mmhg, SpO2=93.0 %, Resp=15 B/min, Pain=0, Gelacio=10, Hassan=2 Time Out. Correct patient, correct procedure, correct physician, power injector not loaded with contrast with surgical 11:11:41 team present. Time Out Concurred by MD and individual staff in procedure. 11:11:54 Case Start 11:13:22 2 mg VERSED given by Checo Greer RN in Left Antecubital via Peripheral IV. 11:14:47 50 mcg FENTANYL given by Checo Greer RN via Peripheral IV. 11:15:55 Verbal Stimulation=2 Physical Stimulation=2 Airway=2 Respiration=2 TOTAL=8. (0=absent, 1=li mited, 2=present) 11:16:01 20 mL 1% XYLOCAINE given by Brigido Taylor in Right Radial via Subcutaneous. 11:16:09 HR=87 bpm, CAZN=804/90 mmhg, SpO2=91.0 %, Resp=14 B/min, Pain=0, Gelacio=10, Hassan=2 11:16:57 Access site was Radial Artery. 11:17:14 A wire was inserted via Radial (right). A SHEATH, FR6 RADIAL PRELUDE EASE 11CM FR 6 was advanced into the Radial (right) using the Perc utaneous 11:17:48 technique. 11:18:02 5 mL (Bolus) RADIAL COCKTAIL given by Brigido Taylor via Radial. Using [Solution Name]. 200 nitro 11:18:13 5000 units HEPARIN given by Checo Greer RN via Peripheral IV. Recorded Pressure: LV, HR=86, Condition=Condition 1 11:19:52 (Left Ventricle) LV 104/7/11 Recorded Pressure: LV, Ao, HR=82, Condition=Condition 1 11:20:04 (Left Ventricle) LV 102/7/11, (Aorta) Ao 97/61/80 A JR 5.0 DXTERITY CATHETER fr 5 was advanced over a wire. OMNIPAQUE, 350 MG, 150ML 150ML was us ed for 11:20:52 injections. 11:21:06 HR=81 bpm, HCAE=580/73 mmhg, SpO2=90 %, Resp=20 B/min, Pain=0, Gelacio=10, Hassan=2 11:21:22 The RCA was injected and visualized at various angles. OMNIPAQUE, 350 MG, 150ML 150ML used . After removing the current catheter a JL 3.5 DXTERITY CATHETER FR 5 was advanced over a WIRE, E XCHANGE 260CM 11:21:39 3MMJ 260CM. Recorded Pressure: Ao, HR=79, Condition=Condition 1 11:22:51 (Aorta) Ao 90/44/63 11:23:09 The LCA was injected and visualized at various angles. OMNIPAQUE, 350 MG, 150ML 150ML used . 11:26:01 HR=90 bpm, SWIP=522/92 mmhg, SpO2=94.0 %, Resp=22 B/min, Pain=0, Gelacio=10, Hassan=2 11:29:08 The RAMIREZ was injected and visualized at various angles. OMNIPAQUE, 350 MG, 150ML 150ML used . 11:30:00 Catheter was removed Assessment: Final Case, PG=634 BPM, Rhythm=reg, IUUC=721/92 mmhg, Chest Pain=0, Edema=None, Color=Normal, Skin = Warm Right Pulses: Carlo Ped=2, Femoral=2, Radial=2 11:30:14 Lower Right Extremities: Color=Normal Lower Left Extremities: Color=Normal Neurological: State=Alert, Ox3, BRAN Respiration: Resp=13 B/min, SpO2=97 % 11:30:47 Catheter(s) removed without difficulty 11:31:49 XM=097 bpm, KEDB=020/106 mmhg, SpO2=96.0 %, Resp=17 B/min, Pain=0, Gelacio=10, Hassan=2 11:33:02 0.4 mg NITROGLYCERIN S/L given by Checo Greer RN via Sublingual. 11:34:12 0.4 mg NITROGLYCERIN S/L given by Checo Greer RN via Sublingual. Recorded Pressure: Ao, LP=492, Condition=Condition 1 11:36:02 (Aorta) Ao 225/122/167 11:36:10 10 mg HYDRALAZINE given in lab by Checo Greer RN via Peripheral IV. Ordered by Chester Taylor. 11:36:20 ST=688 bpm, EVJQ=039/141 mmhg, SpO2=95.0 %, Resp=15 B/min, Pain=0, Gelacio=10, Hassan=2 11:39:33 MD re-scrubbed in A JL 3.5 INFINITI CATHETER FR 4 was advanced over a wire. OMNIPAQUE, 350 MG, 150ML 150ML was us ed for 11:40:17 injections. 10 mcg/min NITROGLYCERIN DRIP given by Checo Greer RN via Peripheral IV. Pump/Drip Flow = 3 m l/hr using D5W 11:40:30 with a concentration of 50 mg in 250 ml. 11:41:19 AW=017 bpm, EAYW=021/127 mmhg, SpO2=94.0 %, Resp=14 B/min 11:42:14 The LCA was injected and visualized at various angles. OMNIPAQUE, 350 MG, 150ML 150ML used . Increased to 20 mcg/min NITROGLYCERIN DRIP given by Checo Greer RN via Peripheral IV. Pump/Dr ip Flow = 6 ml/hr 11:44:24 using D5W with a concentration of 50 mg in 250 ml. 11:44:57 Catheter was removed 11:45:24 20 mL 1% XYLOCAINE given by Brigido Taylor in Right Groin via Subcutaneous. Ordered by Brigido Drew. :45:57 Access site was Right Femoral Artery. 11:46:08 A SHEATH, FR6.5 PRELUDE 11CM FR 6.5 was advanced into the Fem Art (right) using the Percuta neous technique. 11:46:16 LF=990 bpm, MULV=643/112 mmhg, SpO2=95.0 %, Resp=14 B/min 11:46:50 10 mg HYDRALAZINE given in lab by Checo Greer RN via Peripheral IV. Ordered by Chester Taylor. 11:49:12 NIBP STAT measurement started. Increased to 30 mcg/min NITROGLYCERIN DRIP given by Checo Greer RN via Peripheral IV. Pump/Dr ip Flow = 6 ml/hr 11:49:50 using D5W with a concentration of 50 mg in 250 ml. Ordered by Brigido Taylor. 11:49:55 ZI=412 bpm, TPLC=404/119 mmhg, SpO2=95.0 %, Resp=16 B/min 11:51:13 XA=868 bpm, SYCN=819/109 mmhg, SpO2=95.0 %, Resp=18 B/min Increased to 40 mcg/min NITROGLYCERIN DRIP given by hCeco Greer RN via Peripheral IV. Pump/Dr ip Flow = 12 11:51:58 ml/hr using D5W with a concentration of 50 mg in 250 ml. Ordered by Brigido Taylor. 11:52:27 Sheath exchanged for intra-aortic balloon insertion. An BALLOON, FR8 50CC SENSATION PLUS FR 8 50CC was advanced to the descending aorta. Proper plac ement was 11:53:12 confired under fluoroscopy and the balloon was sutured in place. Ratio = 1. Augmented BP 149/86 A PIGTAIL ANG. INFINITI CATHETER FR 4 was advanced over a wire. OMNIPAQUE, 350 MG, 150ML 150ML was used 11:55:40 for injections. 11:56:18 HR=97 bpm, PAXM=152/107 mmhg, SpO2=96.0 %, Resp=15 B/min 11:58:36 The LV was injected at 10 cc/sec for a total of 30. OMNIPAQUE, 350 MG, 50ML 50ML used. 11:59:04 10 mg HYDRALAZINE given in lab by Checo Greer RN via Peripheral IV. Ordered by Chester Taylor 1000 units/hr HEPARIN given in lab by Checo Greer RN via Peripheral IV. Pump/Drip Flow = 10 m l/hr using [Solution 12:01:43 Name] [place] [address] units in 250 ml. Ordered by Brigido Taylor. 12:02:39 Vitals capture stopped. 12:03:13 Case End Vitals capture started with the following parameters, Patient=Adult, Interval=5 min, Initial Pr ibxvro=667 mmHg, 12:03:25 Deflation Rate=5 mmHg, Cuff placed on Left Arm 12:04:03 BY=765 bpm, ONNC=033/94 mmhg, SpO2=96.0 %, Resp=17 B/min, Pain=7, Gelacio=10, Hassan=2 12:05:14 No case complications noted. 12:05:17 Cine recording checked. 12:05:19 Bedside Report will be given. 12:05:25 A Left Heart Cath was performed. 12:09:06 VY=977 bpm, BUZJ=932/84 mmhg, SpO2=96.0 %, Resp=20 B/min increased to 50 mcg/min NITROGLYCERIN DRIP given by Checo Greer RN via Peripheral IV. Pump/Dr ip Flow = 15 12:11:06 ml/hr using D5W with a concentration of 50 mg in 250 ml. Ordered by Brigido Taylor. 12:14:03 SX=295 bpm, VFEJ=235/80 mmhg, SpO2=96.0 %, Resp=21 B/min, Pain=7, Gelacio=10, Hassan=2 Radial Compression Device Used. 19 mLs of air placed in BAND, RADIAL COMPRESSION TR SHORT 24 24 CM. Affected 12:18:32 hand 98 % O2 saturation. 12:19:37 VW=441 bpm, ZNDM=773/76 mmhg, SpO2=96.0 %, Resp=18 B/min, Pain=7, Gelacio=10, Hassan=2 Assessment: Final Case, AH=012 BPM, Rhythm=nsr, MQPV=892/76 mmhg, Chest Pain=0, Edema=None, Col or=Normal, Skin = Warm, Dry 12:22:47 Right Pulses: Carlo Ped=2, Femoral=2, Radial=2 Neurological: State=Alert, Ox3, BRAN Respiration: Resp=17 B/min, SpO2=97 % 12:23:03 Disposable Defibrillator Pads Placed On Patient. increased to 60 mcg/min NITROGLYCERIN DRIP given by Chceo Greer RN via Peripheral IV. Pump/Dr ip Flow = 18 12:24:16 ml/hr using D5W with a concentration of 50 mg in 250 ml. Ordered by Brigido Taylor. 12:32:10 Patient moved to stretcher End Study - Contrast Media Used In Study Contrast Total Opened (mL) Total Used (mL) Total Wasted (mL) Omnipaque 90 90 0 End Study - Maximum Contrast Load Max Contrast Load (mL) 250.0 End Study - Radiation Exposure Fluoro Time (minutes) 5.2 End Study - Patient Disposition Complications Transferred To No Critical Care Bed
[2018-02-03] MEDS ORDERED: ceFAZolin 2 GM in NS 100 ML IV SCH (13:00)
[2018-02-03] MEDS ORDERED: ceFAZolin 2 GM PREMIX 50 ML ONE (13:06)
[2018-02-03] MEDS ORDERED: HEPARIN SODIUM - SQ 10,000 UNITS/ML VIAL ONE (13:06)
[2018-02-03] MEDS ORDERED: VANCOMYCIN HCL 1000 MG VIAL ONE (13:06)
[2018-02-03] MEDS ORDERED: methylPREDNISolone SOD SUCC 125 MG/2 ML VIAL ONE (13:06)
[2018-02-03] MEDS ORDERED: PAPAVERINE INJ 60 MG, NITROGLYCERIN INJ 100 MCG, VERAPAMIL INJ 100 MG in SODIUM CHLORID... IRRIGATION SCH (13:15)
--- NOTE | 2018-02-03 13:18 | PD.CAR.PN ---
CVT Progress Note Subjective/Hospital Course: pt seen and evaluate, full consult to follow sts data discussed with pt RISK SCORES About the STS Risk Calculator Procedure: CAB Only Risk of Mortality: 4.488% Morbidity or Mortality: 37.874% Long Length of Stay: 13.561% Short Length of Stay: 27.213% Permanent Stroke: 1.821% Prolonged Ventilation: 34.633% DSW Infection: 0.637% Renal Failure: 7.835% Reoperation: 12.243% Objective: Vital Signs Date Time Temp Pulse Resp B/P (MAP) Pulse Ox O2 Delivery O2 Flow Rate FiO2 02/03/18 07:51 98.2 75 20 124/84 (97) 98 02/03/18 06:34 Nasal Cannula 2.00 02/03/18 04:26 98.1 76 16 120/68 (85) 98 02/03/18 03:35 76 02/03/18 00:47 79 02/02/18 23:14 97.4 70 16 163/87 (112) 99 02/02/18 22:57 02/02/18 22:10 81 18 166/87 (113) 97 Nasal Cannula 2.00 02/02/18 21:35 64 18 126/88 (101) 97 Nasal Cannula 2.00 02/02/18 21:21 92 Room Air 02/02/18 21:21 93 Nasal Cannula 2.00 02/02/18 21:02 95 Room Air 02/02/18 20:58 97.6 75 18 126/77 (93) 95 Labs: Laboratory Tests Test 02/03/18 03:30 02/03/18 06:34 Total Creatine Kinase 117 U/L (39-308) Creatine Kinase MB 13.8 NG/ML (0.5-3.6) Troponin I 0.97 NG/ML (0.02-0.05) Blood Urea Nitrogen 18 MG/DL (7-18) Creatinine 1.34 MG/DL (0.60-1.30) Random Glucose 100 MG/DL (74-106) Calcium Level 8.3 MG/DL (8.5-10.1) Sodium Level 140 MEQ/L (136-145) Potassium Level 4.7 MEQ/L (3.5-5.1) Chloride Level 106 MEQ/L (98-107) Carbon Dioxide Level 26.8 MEQ/L (21.0-32.0) Anion Gap 7 MEQ/L (5-15) Estimat Glomerular Filtration Rate 53 ML/MIN (>89) Triglycerides Level 88 MG/DL (42-150) Cholesterol Level 139 MG/DL (120-200) LDL Cholesterol 60 MG/DL (0-99) HDL Cholesterol 61.8 MG/DL (40.0-60.0) Cholesterol/HDL Ratio 2.24 RATIO (Radha Doran) Result Diagram: 02/02/18 2105 02/03/18 0634 Plan: Please see my STS risk assessment which differs from this one. (Monica Cardona MD) Radha Doran February 03, 2018 13:18 Monica Cardona MD February 03, 2018 18:39
--- NOTE | 2018-02-03 13:23 | PD.CAR.PN ---
CVT Progress Note Subjective/Hospital Course: 67y/o male presents with NSTEMI. 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 He developed ongoing chest pain refractory to IV NTG and IABP placement. Objective: Vital Signs Date Time Temp Pulse Resp B/P (MAP) Pulse Ox O2 Delivery O2 Flow Rate FiO2 02/03/18 07:51 98.2 75 20 124/84 (97) 98 02/03/18 06:34 Nasal Cannula 2.00 02/03/18 04:26 98.1 76 16 120/68 (85) 98 02/03/18 03:35 76 02/03/18 00:47 79 02/02/18 23:14 97.4 70 16 163/87 (112) 99 02/02/18 22:57 02/02/18 22:10 81 18 166/87 (113) 97 Nasal Cannula 2.00 02/02/18 21:35 64 18 126/88 (101) 97 Nasal Cannula 2.00 02/02/18 21:21 92 Room Air 02/02/18 21:21 93 Nasal Cannula 2.00 02/02/18 21:02 95 Room Air 02/02/18 20:58 97.6 75 18 126/77 (93) 95 Labs: Laboratory Tests Test 02/03/18 03:30 02/03/18 06:34 Total Creatine Kinase 117 U/L (39-308) Creatine Kinase MB 13.8 NG/ML (0.5-3.6) Troponin I 0.97 NG/ML (0.02-0.05) Blood Urea Nitrogen 18 MG/DL (7-18) Creatinine 1.34 MG/DL (0.60-1.30) Random Glucose 100 MG/DL (74-106) Calcium Level 8.3 MG/DL (8.5-10.1) Sodium Level 140 MEQ/L (136-145) Potassium Level 4.7 MEQ/L (3.5-5.1) Chloride Level 106 MEQ/L (98-107) Carbon Dioxide Level 26.8 MEQ/L (21.0-32.0) Anion Gap 7 MEQ/L (5-15) Estimat Glomerular Filtration Rate 53 ML/MIN (>89) Triglycerides Level 88 MG/DL (42-150) Cholesterol Level 139 MG/DL (120-200) LDL Cholesterol 60 MG/DL (0-99) HDL Cholesterol 61.8 MG/DL (40.0-60.0) Cholesterol/HDL Ratio 2.24 RATIO Result Diagram: 02/02/18210402/03/18 0634 Imaging: Last Impressions Chest X-Ray 02/02/182105 Signed Impressions: Service Date/Time: Friday, February 02, 2018 21:12 - CONCLUSION: Stable chest appearance. Tommie Gu MD Cardiovascular: ST Telemetry: ST Pulmonary: CTA GI/: NABS Plan: 67y/o male with ongoing 7/10 chest pain despite medical management with IV heparin, ASA, morphine, IV NTG and an IABP. Plan emergency CABG. STS risk as follow: Risk Model and Variables - STS Adult Cardiac Surgery Database Version 2.81 RISK SCORES About the STS Risk Calculator Procedure: CAB Only Risk of Mortality: 7.824% Morbidity or Mortality: 49.633% Long Length of Stay: 22.151% Short Length of Stay: 18.024% Permanent Stroke: 2.193% Prolonged Ventilation: 45.529% DSW Infection: 1.207% Renal Failure: 14.631% Reoperation: 15.378% Patient is informed and agrees to proceed. Monica Cardona MD February 03, 2018 13:23
[2018-02-03] MEDS ORDERED: ALBUMIN 25% INJ 50 ML IV ONE (13:42)
[2018-02-03] MEDS ORDERED: CARDIOPLEGIC IRR 2,000 ML ONE (13:42)
[2018-02-03] MEDS ORDERED: SODIUM BICARBONATE 8.4% INJ 50 ML ONE (13:43)
[2018-02-03] MEDS ORDERED: POTASSIUM CHLOR ONE (13:43)
[2018-02-03] MEDS ORDERED: MANNITOL INJ 100 ML ONE (13:44)
[2018-02-03] MEDS ORDERED: CALCIUM CHLORIDE 10% SOLN 1 GRAM/10 ML SYR ONE (13:44)
--- NOTE | 2018-02-03 13:56 | MA ---
cc: Brigido Taylor MD DATE: 02/03/2018 DATE OF PROCEDURE: 02/03/2018. INDICATION: Non-ST elevation PR. PROCEDURE PERFORMED: 1. Fluoroscopy with interpretation. 2. Coronary angiography. 3. Left ventriculography. 4. Left upper extremity angiography. 5. Intraaortic balloon pump placement. METHOD: The risks, benefits and alternatives were discussed with the patient. The patient understood and consented to the procedure. The patient was brought into the catheterization lab, placed on the catheterization table. The right groin was prepped and draped and right wrist prepped and draped in sterile fashion. The right wrist was anesthetized with 2% lidocaine. Right radial artery was cannulated and a 6-Palestinian 11 cm sheath was placed without difficulty. 200 mcg intraarterial nitroglycerin and 5000 units of intravenous heparin was administered. LEFT HEART CATHETERIZATION: Intraventricular hemodynamics measured at 102/7 mmHg with a left ventricular end-diastolic pressure of 11 mmHg. CORONARY ANGIOGRAPHY: 1. Left main coronary artery has an 80% ostial stenosis. It is a short left main so the stenosis somewhat involves the bifurcation. Initially our catheter was beyond the stenosis, but there was no reflux into the sinus of Valsalva and we were in a ventricularized waveform. As we pulled the catheter back, we were able to determine there was an ostial lesion. 2. Left anterior descending coronary has mild luminal irregularities. The diagonal branch is of small caliber size. 3. Left circumflex gives rise to a moderate to large sized first obtuse marginal branch with minor luminal irregularities. The mid-circumflex just beyond the bifurcation of the first obtuse marginal branch has a 90% stenosis. Just proximal to the second obtuse marginal branch and extending into the branch is a 70% stenosis. There is a small left-sided posterolateral branch off the circumflex. 4. Right coronary artery is a dominant vessel which gives rise to posterior descending coronary artery. Right coronary has a 50% stenosis in the mid-segment. LEFT VENTRICULOGRAM: A 4-Palestinian angled pigtail catheter is advanced across the aortic valve into the left ventricle. Left ventriculography was performed in right anterior oblique view. 30 mL contrast injection was performed. Ventriculography revealed an ejection fraction of 60%. INTRAAORTIC BALLOON PUMP PLACEMENT: A 50 mL Datascope intra-aortic balloon pump was prepped. Access was obtained in the right femoral artery. In this balloon pump a 7 Palestinian sheath was placed. The patient was having some ongoing chest pain symptoms 03/[address] elevation. We reengaged the left main with a 4-Palestinian catheter to confirm that it was still patent and it was. A 50 mL Datascope intra-aortic balloon pump was advanced to the descending aorta just beyond the takeoff of the left subclavian artery with a 1:1 inflation. Heparin was administered. The patient was initiated on nitroglycerin due to hypertension and chest pain symptoms up to a rate of 50 mcg per hour. LEFT UPPER EXTREMITY ANGIOGRAPHY: Left subclavian was selectively engaged with a 5-Palestinian JL4 catheter and subclavian is widely patent, left internal mammary is widely patent. CONCLUSIONS: 1. Severe ostial left main coronary artery and left circumflex coronary artery disease. 2. Normal left ventricular systolic function. 3. Patent left subclavian and left internal mammary arteries. 4. Successful placement of intraaortic balloon pump. PLAN: CT Surgical consultation was obtained urgently. The patient's symptoms are slowly improving now with the balloon pump in addition to nitroglycerin. Hopefully, we can get him chest pain free. We will initiate heparin. If his chest pain persists, he is going to need to go to the operating room sooner rather than later. We will get a 2-D echocardiogram. MD BAILEY Mancilla/SB , 12:19 PM , 01:56 PM
[2018-02-03] MEDS ORDERED: POTASSIUM CHLOR 40 MEQ PREMIX 100 ML ONE (14:48)
--- NOTE | 2018-02-03 15:41 | HHI.FF ---
Face to Face Verification Diagnosis: (1) COPD (chronic obstructive pulmonary disease) (2) S/P CABG (coronary artery bypass graft) (3) Hypertension (4) Hyperlipemia (5) NSTEMI (non-ST elevated myocardial infarction) Home Health Nursing Order: Signs/symptoms of disease process Medication education-adverse effect Wound care and dressing changes Nursing assessment with vital signs Instructions: Heart and Vascular Surgery patients *Special attention to sternal dressing Mandatory frequency Assess and evaluation, 4 days in a row The next week 3X week 2 times a week for 4 weeks 1 time a week for 5 weeks Schedule Heart and Vascular patients for full 60 day certification period Initial visit Review Open Heart Surgery Discharge Instructions (Sternal precautions, Activity, Elastic hose, Incision care, Driving, Incentive spirometry, Smoking, Tiburones, Work and other) Need Betadine to paint incision Medication reconciliation Importance of follow up care/ check on appointments Make calendar record temperature daily When to call [facility] nurse, review instructions, phone list Incentive Spirometry, demonstration Visit 1- Begin discharge instruction for patient family and/ or caregiver using teach back method- Signs and symptoms of infection Disease characteristics Medicines and side effects Foods and nutrition/ appetite Infection control/ hand washing/ hygiene Visit 2- Continue teaching Discharge instructions- include additional information on smoking cessation , sternal dressing (sternal vac) Visit 3- Continue teaching- Cough and deep breathing, incision monitoring. Choose my plate Visit 4- Continue teaching- Discuss limitations Discuss how they are feeling Discuss progress toward goals Remaining visits- continue teaching and monitoring For any questions please call : Thursday 8am-5pm Heart & Vascular Surgery Office ( Dr. Peters & Dr. Cardona), After Hours / Nights (5pm -8am) Weekends and Holidays Please call [facility] Cardiac Intermediate Care Unit (CIC) Charge Nurse PREVENA Single Use Negative Wound Therapy System Caregiver Instruction Sheet 1. A Prevena dressing system was applied to the chest incision during surgery , to promote wound healing. It works via a suction device (negative pressure wound therapy) to remove low to moderate levels of exudate (drainage) and infectious materials. We recommend that the device stay in place for up to seven days, from day of surgery. 2. Day of Surgery___/ Day of Removal ___02/10/18 3. The dressing should only be removed by a health hospice care consultant. Please arrange removal of device to coincide with Home Health visit and or with Nursing staff at Rehab 4. If skin reddening or irritation of skin occurs, or excessive drainage, please notify the Cardiovascular Surgeons office at [phone]. 5. Light showering is permissible; however the pump should be disconnected and placed in safe location, where it will not get wet. The dressing should not be exposed to direct spray or submerged in water. No bath tub / shower only. Ensure the end of the tubing attached to the dressing is facing down so that water does not enter the top of the tube. 6. To remove Prevena dressing: press purple button to turn off device / remove the suction. Then disconnect the tubing from the pump. The fixation strips should be stretched away from the skin and the dressing lifted at one corner and peeled back until it has been fully removed. 7. After removal, it is ok to shower daily using liquid dial soap and clean wash cloth, rinse and pat dry, and leave incision open to air dry. For any concerns regarding Prevena dressing, and or wounds, please contact Radha Marvin, patient navigator at [phone] or notify the Cardiovascular Surgeons office at [phone]. Incentive spirometry Q1 hr x 10, while awake, also use acapella device hourly whole awake Sternal Breast Bone Precautions: NO pushing or pulling, ( pt must use sternal pillow to support chest with all activities and with coughing ( takes up to 3 months breast bone to heal ) All females to wear sternal bra , launder as needed Daily incision care: ok to shower daily, no tub bath. Wash all incisions with liquid dial soap, clean wash cloth to each site, rinse and pat dry. Observe for any signs of infection, such as drainage which is dark yellow, garza, green or foul smelling. Immediately report to the surgeon any drainage from the chest incision, or legs, and for any abnormal drainage from the chest tube sites. Notify surgeon if any temp >101.5 degrees F. When specialty dressing removed/ or if you do not have one, continue to shower daily as above, then rinse and pat incision dry and paint with betadine daily x 5 days. Allow steri strips to fall off if you have any. Avoid lotions, creams, salves, oils, etc. for the first month Please see attached forms for additional instructions regarding post Open Heart specialty wound vacuum dressings. DEBO or Prevena , Dressing to be removed by Nursing staff on _02/10/[address] Cardona patients , please obtain CBC, BMP, PA & Lat CXR in 2 weeks, results to Dr. Cardona ( prescription will be given) ( ) (Tele: [phone]) F/U appointment: as per DC instructions: PCP in 2 weeks, CV surgeon 2 weeks, Instructional Specialist 3-4 weeks For any questions regarding incisions/ dressing / meds / post op care or above Symptoms, Thursday 8am-5pm Heart & Vascular Surgery Office ( Dr. Peters & Dr. Cardona), After Hours / Nights (5pm -8am) Weekends and Holidays Please call [facility] Cardiac Intermediate [facility] Unit (CIC) Charge Nurse I have seen patient Tato Stearns on 02/03/18. My clinical findings support the need for the requested home health care services because: Deconditioned w/ increased weakness I certify that my clinical findings support that this patient is homebound because: Post-op weakness Radha Doran February 03, 2018 15:40
[2018-02-03 16:13] LABS: HEMOGLOBIN A1C 6.3 % (4.3-6.0)
--- NOTE | 2018-02-03 16:15 | MB ---
cc: Radha Doran Jacqueline R ARNP DATE: 02/03/2018 HISTORY OF PRESENT ILLNESS: A 67-year-old male, date of 1950, presented to the emergency room with chest pain, acute onset of substernal chest discomfort, apparently admitted last evening after he had an acute onset of substernal chest pain, had a vodka tonic prior to dinner, developed the pain without radiation, associated with some nausea, diaphoresis, took a nitro without much relief. He came into the Emergency Room, received some morphine in addition to the nitro and the symptoms subsided. He was [facility] to the [facility]. The troponins ruled in for non-ST segment MN. Troponins first was 0.02, then 0.97. EKG had some T-wave inversion in the lateral leads. The patient underwent cardiac catheterization this morning that showed an 80% left main, circumflex with 90% stenosis, the obtuse marginal 70%, the RCA 50%, the ejection fraction 60%. The patient had pain throughout the catheterization. An intraaortic balloon pump was placed in the right groin. He was also placed on nitroglycerin drip up to a rate of 50 mcg per hour. We were consulted immediately for left main disease, status post intraaortic balloon pump placement, a non-ST segment MN and ongoing chest pain. PAST MEDICAL HISTORY: Coronary artery disease, prior MN, PCI to the left circ back in 1995, peripheral arterial disease with history of claudication. He had an intervention with a right iliac stent at that time. Also, hyperlipidemia, COPD, tobacco abuse. PAST SURGICAL HISTORY: The PCI and the stent to the iliac artery. ALLERGIES: METOPROLOL. HOME MEDICATIONS: 1. Crestor. 2. Lisinopril. 3. Symbicort. 4. ProAir. SOCIAL HISTORY: The patient ; however, his is since . He has 4 children from the [place] area. He has been smoking 1 pack for the last 48 years. Occasional alcohol. REVIEW OF SYSTEMS: As above in the HPI, the 12 systems unremarkable. PHYSICAL EXAMINATION: VITAL SIGNS: Blood pressure currently 120/68, heart rate of 80-110. GENERAL: Awake, complaining of midsternal chest pain, scale of 7/10. HEENT: Head is normocephalic, atraumatic. Pupils equal and reactive. Oral mucosa pink, moist. NECK: Supple. No JVD. HEART SOUNDS: S1, S2, slightly tachycardic. No audible rubs, murmurs, gallops. LUNGS: Clear to auscultation. No wheezes, rales or rhonchi. ABDOMEN: Soft, nontender, no masses or organomegaly. EXTREMITIES: Reveal no cyanosis, clubbing or edema. He has good distal pulses. He has an intraaortic balloon pump in the right groin with good augmentation. LABORATORY DATA: Hemoglobin 15, hematocrit of 45, white cell count of 11, platelet count of 253. Sodium 140, potassium 4.7, BUN of 18, creatinine 1.34. Troponins as above. Triglycerides 88, cholesterol 139, LDL of 60. INR 0.9. MRSA is positive. IMAGING STUDIES: Chest x-ray is unremarkable. ASSESSMENT AND PLAN: This is a 67-year-old male with history of prior myocardial infarction admitted at this time with non-ST elevation myocardial infarction, ongoing chest pain, status post cardiac catheterization, ejection fraction of 60% and multivessel coronary disease with an 80% left main. The patient had continued to have chest pain despite the catheterization and the intraaortic balloon pump, was taken emergently to the operating room per Dr. Monica Olguin. The procedures, alternatives and risks were discussed with the patient. The significant other was not available at the time of surgery. JOHN Metzger MD JRT/WAYNE , 03:38 PM , 04:14 PM
[2018-02-03] MEDS ORDERED: CLEVIDIPINE INJ 50 ML IV PRN (18:45)
[2018-02-03] MEDS ORDERED: ONDANSETRON ODT 4 MG TAB PO PRN (18:45)
[2018-02-03] MEDS ORDERED: MAGNESIUM SULFATE INJ 2 GM in SODIUM CHLORIDE 0.9% INJ 100 ML IV PRN ×4 (18:45)
[2018-02-03] MEDS ORDERED: POTASSIUM CHLOR 20 MEQ PREMIX 100 ML IV PRN ×3 (18:45)
[2018-02-03] MEDS ORDERED: DEXMEDETOMIDINE INJ 200 MCG in SODIUM CHLORIDE 0.9% INJ 50 ML IV PRN (18:45)
[2018-02-03] MEDS ORDERED: ACETAMINOPHEN 650 MG SUPP RECTAL PRN (18:45)
[2018-02-03] MEDS ORDERED: ACETAMINOPHEN 325 MG TAB PO PRN (18:45)
[2018-02-03] MEDS ORDERED: RESP: RACEPINEPHRINE 2.25% 0.5 ML NEB NEB PRN (18:45)
[2018-02-03] MEDS ORDERED: Post-op Orders (for Pharmacy) OTHER ONE (18:45)
[2018-02-03] MEDS ORDERED: POTASSIUM CHLORIDE 20 MEQ CONTROLLED RELEASE TAB PO PRN ×2 (18:45)
[2018-02-03] MEDS ORDERED: SODIUM BICARBONATE 8.4% SOLN 50 MEQ/50 ML VIAL IV PUSH PRN ×2 (18:45)
[2018-02-03] MEDS ORDERED: CALCIUM CHLORIDE 10% 1 GRAM/10 ML VIAL IV PUSH PRN (18:45)
[2018-02-03] MEDS ORDERED: ceFAZolin INJ 1,000 MG VIAL ONE (18:47)
--- NOTE | 2018-02-03 18:56 | PD.OP ---
cc: Monica Cardona MD; Brigido Taylor MD Operative Report Date of Surgery: February 03, 2018 Preoperative Diagnosis: (1) CAD (coronary artery disease) (2) Unstable angina (3) NSTEMI (non-ST elevated myocardial infarction) (4) On intra-aortic balloon pump assist Postoperative Diagnosis: same Severe COPD Procedure: Emergency CABG x 3 RAMIREZ to LAD - good SVG to OM1 - good SVG to OM2 - good EVH Anesthesia: Dr. Sanches Surgeon: Monica Cardona Nitroglycerin Neutralizer(s): ADRIENNE Loja Operation and Findings: The risks, benefits, complications, treatment options, and expected outcomes were discussed with the patient. The patient had an IABP placed in the cath lab tech due to ongoing chest pain. The possibilities of reaction to medication, pulmonary aspiration, perforation of viscus, bleeding, recurrent infection, the need for additional procedures, failure to diagnose a condition, and creating a complication requiring transfusion or operation were discussed with the patient. The patient concurred with the proposed plan, giving informed consent. The site of surgery properly noted/marked. The patient was taken to Operating Room, identified as Tato Stearns and the procedure verified as emergency CABG, EVH. A Time Out was held and the above information confirmed. Standard monitoring lines and Bundy catheter were placed. General anesthesia was induced. The patient was prepped and draped in a sterile fashion. A median sternotomy was performed and electrocautery was used to obtain hemostasis. The left internal mammary artery was procured as a pedicle from the 7th rib to the 1st rib in the usual manner. Simultaneously left greater saphenous vein was procured from the left leg using a minimally invasive endoscopic technique. The vein was prepared for anastomosis and the leg wound was irrigated and closed in 2 layers. The pericardium was opened and a pericardial sling was created using interrupted 0 silk sutures. The patient was heparinized for cardiopulmonary bypass and the distal mammary pedicle was instrumented for anastomosis. The heart was instrumented for cardiopulmonary bypass in the usual manner. Antegrade blood cardioplegia was employed. The patient was placed on cardiopulmonary bypass. An aortic cross-clamp was applied and the heart was arrested using cold blood cardioplegia. Antegrade cardioplegia was administered after he each anastomosis. After adequate arrest, the OM2 was opened with a [place] blade and found to be a 1.5 millimeter good target. Saphenous vein was approximated to the OM2 artery using a running 7 0 Prolene suture. The graft was measured for length and orientation and the proximal anastomosis was constructed to the ascending aorta using a running 5 0 Prolene suture after creating an aortotomy with a 5 millimeter punch. The 1st circumflex marginal artery was then opened with a [place] blade and found to be a 1.5 millimeter good target. The OM1 artery was intramyocardial. Saphenous vein was approximated to the OM1 artery using a running 7 0 Prolene suture. The graft was measured for length and orientation and the proximal anastomosis was constructed to the ascending aorta using a running 5 0 Prolene suture after creating an aortotomy with a 5 millimeter punch. The LAD was opened with a [place] blade and found to be a 1.5 millimeter good target. The left internal mammary artery was approximated to the LAD using a running 7 0 Prolene suture. The pedicle was attached to the epicardium using interrupted 5 0 silk suture. The pedicle length was inadequate due to the patient's severe COPD and lung hyperinflation. therefore , it was used as a free graft. The proximal RAMIREZ was ligated and divided. The patient was systemically rewarmed and received a hotshot dose of warm blood cardioplegia. The aorta was vented and the proximal anastomosis to the RAMIREZ graft was accomplished using a running 6 0 Prolene suture after creating an aortotomy was a 4 millimeter punch. The cross-clamp was removed and all proximal and distal anastomoses were examined for hemostasis. The patient was weaned from cardiopulmonary bypass with the IABP augmenting 1:1. Protamine was given. There was no adverse reaction. Decannulation was carried out without incident. Wound was checked for hemostasis which was obtained using electrocautery. A 36 Montenegrin mediastinal and 32 Montenegrin left pleural chest tubes were placed and secured to the skin with 0 silk suture. The sternum was closed with stainless steel wire. The fascia was closed with 1. PDS. The subcutaneous tissue was closed using a running 2-0 Vicryl suture. The skin was closed with 4- 0 Monocryl. Sterile dressings were placed. At the end of the operation, all sponge, instruments, and needle counts were correct. The patient was transferred to the CVICU in stable condition. Findings: Good distal targets. Severe hyperinflation of both lungs. XC: 60 min CPB: 79 min Drains: mediastinal x 1 pleural x 1 Complications: none Disposition: to CVICU in stable condition Monica Cardona MD February 03, 2018 18:56
[2018-02-03] MEDS: LACTATED RINGER'S 1000 ML INJ 500 ML IV PRN ×2 (20:00→23:00)
[2018-02-03] MEDS: RESP: ALBUTEROL 2.5 MG/IPRATROPIUM 0.5 MG NEB (SCH) NEB (20:06)
[2018-02-03] MEDS: ALBUMIN 5% INJ 250 ML IV PRN ×2 (20:18→23:00)
[2018-02-03] MEDS: CALCIUM CHLORIDE INJ 1 GM in SODIUM CHLORIDE 0.9% INJ 100 ML IV PRN ×2 (20:30→22:07)
[2018-02-03] MEDS ORDERED: SODIUM CHLORIDE 0.9% FLUSH 10 ML FLUSH IV FLUSH SCH (21:00)
[2018-02-03] MEDS: BUDESONIDE-FORMOTEROL 80/4.5 MCG INHALER INH SCH (21:00)
--- NOTE | 2018-02-03 21:22 | RADRPT ---
EXAM DATE/TIME: 02/03/2018 20:37 [facility] COMPARISON: CHEST SINGLE AP, February 02, 2018, 21:12. INDICATIONS : Post CABG. MEDICAL HISTORY : None. SURGICAL HISTORY : CABG. ENCOUNTER: Initial ACUITY: 1 day PAIN SCORE: Non-responsive. LOCATION: Bilateral chest FINDINGS: The patient is status post sternotomy. The ET tube, mediastinal drain, left chest tube, and left subc lavian line are well placed. The tip of the NG tube is at the distal esophagus. The heart size is nor mal. The lungs are grossly clear. CONCLUSION: 1. Status post sternotomy. 2. The NG tube should be advanced. The tip is in the distal esophagus. Tommie Swain MD on February 03, 2018 at 21:17 Board Certified Radiologist. This report was verified electronically.
[2018-02-03] MEDS: AMIODARONE 200 MG TAB PO SCH (21:56)
[2018-02-03] MEDS: oxyCODONE/ACETAMINOPHEN 5 MG/325 MG TAB PO PRN (21:56)
[2018-02-03] MEDS: ACETAMINOPHEN 1000 MG/100 ML 100 ML IV SCH (21:56)
[2018-02-04] VITALS (13 sets, daily range): BP systolic 103–140; BP diastolic 41–84; PULSE 80–116; RESP 12–20; TEMP 98.4–98.9; O2SAT 92–98
[2018-02-04] MEDS: oxyCODONE/ACETAMINOPHEN 5 MG/325 MG TAB PO PRN (02:43)
[2018-02-04] MEDS: ACETAMINOPHEN 1000 MG/100 ML 100 ML IV SCH ×3 (02:44→13:34)
[2018-02-04] MEDS: RESP: ALBUTEROL 2.5 MG/IPRATROPIUM 0.5 MG NEB (SCH) NEB ×3 (03:11→20:54)
[2018-02-04 04:15] LABS: AUTOMATED NEUTROPHIL # 10.5 TH/MM3 (1.8-7.7); BASOPHIL % 0.1 % (0.0-2.0); HEMATOCRIT 26.7 % (39.0-51.0); HEMOGLOBIN 8.9 GM/DL (13.0-17.0); LYMPH % 6.1 % (9.0-44.0); LYMPHOCYTE # 0.7 TH/MM3 (1.0-4.8); MEAN CELL VOLUME 90.8 FL (80.0-100.0); MEAN CORPUSCULAR HEMOGLOBIN 30.3 PG (27.0-34.0); MEAN CORPUSCULAR HGB CONC 33.4 % (32.0-36.0); MEAN PLATELET VOLUME 7.5 FL (7.0-11.0); MONO % 7.5 % (0.0-8.0); MONOCYTE # 0.9 TH/MM3 (0-0.9); NEUT % 86.3 % (16.0-70.0); PLATELET COUNT 102 TH/MM3 (150-450); RED BLOOD COUNT 2.94 MIL/MM3 (4.50-5.90); WHITE BLOOD COUNT 12.2 TH/MM3 (4.0-11.0)
[2018-02-04 04:37] LABS: BICARBONATE 25.3 MEQ/L (21.0-32.0); CALCIUM 7.9 MG/DL (8.5-10.1); CREATININE 1.47 MG/DL (0.60-1.30); MAGNESIUM 2.8 MG/DL (1.5-2.5)
--- NOTE | 2018-02-04 04:47 | RADRPT ---
EXAM DATE/TIME: 02/04/2018 03:51 [facility] COMPARISON: CHEST SINGLE AP, February 03, 2018, 20:37. INDICATIONS : Shortness of breath, possible pulmonary disease. MEDICAL HISTORY : None. SURGICAL HISTORY : CABG. ENCOUNTER: Subsequent ACUITY: 2 days PAIN SCORE: 10/10 LOCATION: Bilateral chest FINDINGS: The endotracheal tube and nasogastric tube have been removed. Left-sided thoracostomy tubes remain. N o pneumothorax. No infiltrates or effusions. Heart is normal in size. Median sternotomy wires. CONCLUSION: Clear lungs. Ralph Menendez Jr., MD on February 04, 2018 at 4:44 Board Certified Radiologist. This report was verified electronically.
[2018-02-04] MEDS: PANTOPRAZOLE SOD 40 MG DELAYED RELEASE TAB PO SCH (06:00)
[2018-02-04] MEDS: AMIODARONE 200 MG TAB PO SCH ×3 (07:36→22:00)
[2018-02-04] MEDS: SODIUM CHLORIDE 0.9% FLUSH 10 ML FLUSH IV FLUSH SCH ×2 (08:17→22:41)
[2018-02-04] MEDS ORDERED: METOPROLOL TARTRATE 5 MG/5 ML VIAL ONE (08:53)
[2018-02-04] MEDS ORDERED: ASPIRIN EC 81 MG TABEC PO SCH (09:00)
[2018-02-04] MEDS: BUDESONIDE-FORMOTEROL 80/4.5 MCG INHALER INH SCH ×2 (09:00→21:00)
[2018-02-04] MEDS ORDERED: DEXTROSE 50% IN WATER 50 ML VIAL(D50) IV PUSH PRN (09:30)
[2018-02-04] MEDS ORDERED: GLUCAGON 1 MG/ML VIAL OTHER PRN (09:30)
[2018-02-04] MEDS ORDERED: BISACODYL 10 MG SUPP RECTAL PRN (09:30)
[2018-02-04] MEDS ORDERED: METOPROLOL TARTRATE 25 MG TAB PO SCH ×2 (09:30→21:00)
--- NOTE | 2018-02-04 09:45 | PD.CARD.PN ---
Subjective Subjective Remarks post op day #1 little confused IABP in place Objective Medications Current Medications Medications (Trade) Dose Ordered Sig/Johnny Route Start Time Stop Time Status Last Admin (NS Flush) 2 ml UNSCH PRN IV FLUSH 02/02/18 22:30 (NS Flush) 2 ml BID IV FLUSH 02/03/18 09:00 (Xanax) 0.5 mg Q8H PRN PO 02/03/18 02:45 (Symbicort 80-4.5 Mcg Inh) 2 puff Q12HR INH 02/03/18 09:00 (Zetia) 10 mg DAILY PO 02/03/18 09:00 (Lipitor) 40 mg DAILY PO 02/03/18 09:00 Cefazolin Sodium 1000 mg/Sodium Chloride 100 ml @ 200 mls/hr Q8H IV 02/04/18 02:00 02/05/18 10:29 02/04/18 02:44 (Aspirin Chew) 81 mg DAILY PO 02/04/18 09:00 (Protonix) 40 mg DAILY@06 PO 02/04/18 06:00 (Cordarone) 400 mg Q8HR PO 02/03/18 22:00 02/04/18 07:36 (Tylenol) 650 mg Q4H PRN PO 02/03/18 18:45 (Tylenol Supp) 650 mg Q4H PRN RECTAL 02/03/18 18:45 Acetaminophen 100 ml @ 400 mls/hr Q6H IV 02/03/18 20:00 02/04/18 14:14 02/04/18 07:36 (Percocet 5-325 Mg) 1 tab Q3H PRN PO 02/03/18 18:45 02/04/18 02:43 (fentaNYL INJ) 25 mcg Q1H PRN IV PUSH 02/03/18 18:45 02/04/18 08:49 (Zofran Odt) 4 mg Q6H PRN PO 02/03/18 18:45 (Apresoline Inj) 10 mg Q4H PRN IV PUSH 02/03/18 18:45 (Duoneb Neb) 1 ampule Q2HR NEB PRN NEB 02/03/18 18:45 (Duoneb Neb) 1 ampule Q6HR WHILE AWAKE NEB NEB 02/04/18 14:00 02/06/18 13:59 (Colace) 100 mg BID PO 02/04/18 21:00 (Theragran M Tab) 1 tab DAILY PO 02/05/18 09:00 UNV (Milk Of Magnesia Liq) 30 ml DAILY PO 02/05/18 09:00 UNV (Dulcolax Supp) 10 mg UNSCH PRN RECTAL 02/04/18 09:30 UNV (Miralax) 17 gm DAILY PO 02/05/18 09:00 UNV (Senokot) 8.6 mg HS PO 02/04/18 21:00 UNV (Fleets Enema (Adult)) 118 ml UNSCH PRN RECTAL 02/04/18 09:30 UNV (NovoLOG SUPPLEMENTAL SCALE) 1 02,06,10,14,18,22 SQ 02/04/18 10:00 UNV (D50w (Vial) Inj) 50 ml UNSCH PRN IV PUSH 02/04/18 09:30 (Glucagon Inj) 1 mg UNSCH PRN OTHER 02/04/18 09:30 (Prinivil) 10 mg DAILY PO 02/04/18 11:00 UNV (Lopressor) 25 mg BID PO 02/04/18 21:00 UNV Vital Signs / I&O Vital Signs Date Time Temp Pulse Resp B/P (MAP) Pulse Ox O2 Delivery O2 Flow Rate FiO2 02/04/18 08:38 98.7 91 16 118/41 95 02/04/18 08:16 98.7 100 16 122/44 95 02/04/18 08:00 81/54 (71) 02/04/18 07:00 89/48 (72) 02/04/18 07:00 98.4 101 16 113/65 (81) 92 110/43 (65) 02/04/18 07:00 90 02/04/18 07:00 92 Nasal Cannula 3.00 02/04/18 06:00 65/40 (65) 02/04/18 05:16 98.6 83 12 116/71 (86) 94 02/04/18 05:00 77/55 (67) 02/04/18 04:00 92/70 (80) 02/04/18 03:00 95 Nasal Cannula 2.00 02/04/18 03:00 84/55 (70) 02/04/18 03:00 80 02/04/18 02:00 98 Nasal Cannula 3.00 02/04/18 02:00 73/51 (73) 02/04/18 01:00 69/42 (75) 02/04/18 00:05 98 Nasal Cannula 4 40 02/04/18 00:05 99 Nasal Cannula 4.00 02/04/18 00:00 82/59 (80) 02/03/18 23:38 99 40 02/03/18 23:00 97.5 81 16 126/70 (88) 98 Arterial Line 02/03/18 23:00 99 Mechanical Ventilator 40 02/03/18 23:00 40 02/03/18 23:00 84/62 (90) 02/03/18 23:00 80 02/03/18 22:41 99 40 02/03/18 22:00 92/60 (95) 02/03/18 21:00 74/51 (76) 02/03/18 20:45 99 40 02/03/18 20:40 97.8 99 18 108/69 94 02/03/18 20:00 70/47 (67) 02/03/18 19:43 99 40 02/03/18 19:30 99 50 02/03/18 19:30 87 02/03/18 19:30 50 02/03/18 19:30 99 Mechanical Ventilator 50 02/03/18 19:30 73/53 (80) 02/03/18 19:00 97.8 80 14 121/36 (64) 99 Arterial Line I/O 02/03/18 02/03/18 02/03/18 02/04/18 02/04/18 02/04/18 07:00 15:00 23:00 07:00 15:00 23:00 Intake Total 4538 ml 1223 ml Output Total 1850 ml 2105 ml Balance 2688 ml -882 ml Intake Oral 150 ml IV Total 1070 ml 1073 ml Autotransfusion 750 ml Platelets 188 ml Blood Product IV Normal Saline Flush 30 ml Other 2500 ml Output Urine Total 350 ml 1125 ml Chest Tube Drainage Total 980 ml Estimated Blood Loss 1500 ml # Voids 2 2 # Bowel Movements 0 Physical Exam EYES: No scleral icterus. No injection or drainage. NECK: Supple, trachea midline. No JVD or lymphadenopathy. CARDIOVASCULAR: Regular rate and rhythm without murmurs, gallops, or rubs. RESPIRATORY: Breath sounds equal bilaterally. No accessory muscle use. GASTROINTESTINAL: Abdomen soft, non-tender, nondistended. MUSCULOSKELETAL: No cyanosis, or edema. BACK: Nontender without obvious deformity. No CVA tenderness. Laboratory Laboratory Tests Test 02/03/18 13:24 02/04/18 04:00 Nasal Screen MRSA (PCR) MRSA DETECTED White Blood Count 12.2 TH/MM3 Red Blood Count 2.94 MIL/MM3 Hemoglobin 8.9 GM/DL Hematocrit 26.7 % Mean Corpuscular Volume 90.8 FL Mean Corpuscular Hemoglobin 30.3 PG Mean Corpuscular Hemoglobin Concent 33.4 % Red Cell Distribution Width 14.0 % Platelet Count 102 TH/MM3 Mean Platelet Volume 7.5 FL Neutrophils (%) (Auto) 86.3 % Lymphocytes (%) (Auto) 6.1 % Monocytes (%) (Auto) 7.5 % Eosinophils (%) (Auto) 0.0 % Basophils (%) (Auto) 0.1 % Neutrophils # (Auto) 10.5 TH/MM3 Lymphocytes # (Auto) 0.7 TH/MM3 Monocytes # (Auto) 0.9 TH/MM3 Eosinophils # (Auto) 0.0 TH/MM3 Basophils # (Auto) 0.0 TH/MM3 CBC Comment DIFF FINAL Differential Comment Blood Urea Nitrogen 22 MG/DL Creatinine 1.47 MG/DL Random Glucose 113 MG/DL Calcium Level 7.9 MG/DL Magnesium Level 2.8 MG/DL Sodium Level 144 MEQ/L Potassium Level 4.7 MEQ/L Chloride Level 111 MEQ/L Carbon Dioxide Level 25.3 MEQ/L Anion Gap 8 MEQ/L Estimat Glomerular Filtration Rate 48 ML/MIN Imaging Last 24 hours Impressions Chest X-Ray 02/04/18 0500 Signed Impressions: Service Date/Time: January 03:51 - CONCLUSION: Clear lungs. Ralph Menendez Jr., MD Assessment and Plan Assessment and Plan NSTEMI - severe ostial LM with + CP symptoms taken to OR emergently due to ongoing symptoms CABG post op care will sign off call with questions thank you Brigido Taylor MD February 04, 2018 09:45
--- NOTE | 2018-02-04 09:57 | PD.CAR.PN ---
CVT Progress Note Subjective/Hospital Course: 67-year-old male, presented to the emergency room with chest pain, acute onset of substernal chest discomfort, apparently admitted last evening after he had an acute onset of substernal chest pain, had a vodka tonic prior to dinner, developed the pain without radiation, associated with some nausea, diaphoresis, took a nitro without much relief. He came into the Emergency Room, received some morphine in addition to the nitro and the symptoms subsided. [facility]. The troponins ruled in for non-ST segment MS. Troponins first was 0.02, then 0.97. EKG had some T-wave inversion in the lateral leads. The patient underwent cardiac catheterization this morning that showed an 80% left main, circumflex with 90% stenosis, the obtuse marginal 70%, the RCA 50%, the ejection fraction 60%. The patient had pain throughout the catheterization. An intraaortic balloon pump was placed in the right groin. He was also placed on nitroglycerin drip up to a rate of 50 mcg per hour. We were consulted immediately for left main disease, status post intraaortic balloon pump placement, a non-ST segment MS and ongoing chest pain. PAST MEDICAL HISTORY: Coronary artery disease, prior MS, PCI to the left circ back in 1995, peripheral arterial disease with history of claudication. He had an intervention with a right iliac stent at that time, hyperlipidemia, COPD, tobacco abuse. 02/03 pt underwent emergent CABG x 3, RAMIREZ to LAD - good, SVG to OM1 - good, SVG to OM2 - good, EVH found to have hyperinflated lungs extubated after surgery crystalloid 2500cc, 750cc cell saver, CPB 79min 02/[address] to 1:3 this am given one unit PRBC, slightly confused attempted to sit up in bed with IABP in place Procedure IABP removed right groin, with assistance from Dr Feldman hemostasis obtained after 20 min, + distal pulses, no hematoma started on BB , will add juany noe, unclear of ETOH use keep in ICU for now , will need aggressive pulm toileting Objective: GENERAL: Awake , slightly confused to time and place SKIN: Warm and dry. prevena dressing to chest , chuck wrap to left leg HEAD: Normocephalic. EYES: No scleral icterus. No injection or drainage. NECK: Supple, trachea midline. No JVD or lymphadenopathy. CARDIOVASCULAR: Regular rate and rhythm without murmurs, gallops, or rubs. slightly tachycardic RESPIRATORY: Breath sounds equal bilaterally. No accessory muscle use. diminished in bases , faint exp wheeze GASTROINTESTINAL: Abdomen soft, non-tender, nondistended. MUSCULOSKELETAL: No cyanosis, or edema. BACK: Nontender without obvious deformity. No CVA tenderness. Vital Signs Date Time Temp Pulse Resp B/P (MAP) Pulse Ox O2 Delivery O2 Flow Rate FiO2 02/04/18 08:38 98.7 91 16 118/41 95 02/04/18 08:16 98.7 100 16 122/44 95 02/04/18 08:00 81/54 (71) 02/04/18 07:00 89/48 (72) 02/04/18 07:00 98.4 101 16 113/65 (81) 92 110/43 (65) 02/04/18 07:00 90 02/04/18 07:00 92 Nasal Cannula 3.00 02/04/18 06:00 65/40 (65) 02/04/18 05:16 98.6 83 12 116/71 (86) 94 02/04/18 05:00 77/55 (67) 02/04/18 04:00 92/70 (80) 02/04/18 03:00 95 Nasal Cannula 2.00 02/04/18 03:00 84/55 (70) 02/04/18 03:00 80 02/04/18 02:00 98 Nasal Cannula 3.00 02/04/18 02:00 73/51 (73) 02/04/18 01:00 69/42 (75) 02/04/18 00:05 98 Nasal Cannula 4 40 02/04/18 00:05 99 Nasal Cannula 4.00 02/04/18 00:00 82/59 (80) 02/03/18 23:38 99 40 02/03/18 23:00 97.5 81 16 126/70 (88) 98 Arterial Line 02/03/18 23:00 99 Mechanical Ventilator 40 02/03/18 23:00 40 02/03/18 23:00 84/62 (90) 02/03/18 23:00 80 02/03/18 22:41 99 40 02/03/18 22:00 92/60 (95) 02/03/18 21:00 74/51 (76) 02/03/18 20:45 99 40 02/03/18 20:40 97.8 99 18 108/69 94 02/03/18 20:00 70/47 (67) 02/03/18 19:43 99 40 02/03/18 19:30 99 50 02/03/18 19:30 87 02/03/18 19:30 50 02/03/18 19:30 99 Mechanical Ventilator 50 02/03/18 19:30 73/53 (80) 02/03/18 19:00 97.8 80 14 121/36 (64) 99 Arterial Line Labs: Laboratory Tests Test 02/04/18 04:00 White Blood Count 12.2 TH/MM3 (4.0-11.0) Red Blood Count 2.94 MIL/MM3 (4.50-5.90) Hemoglobin 8.9 GM/DL (13.0-17.0) Hematocrit 26.7 % (39.0-51.0) Mean Corpuscular Volume 90.8 FL (80.0-100.0) Mean Corpuscular Hemoglobin 30.3 PG (27.0-34.0) Mean Corpuscular Hemoglobin Concent 33.4 % (32.0-36.0) Red Cell Distribution Width 14.0 % (11.6-17.2) Platelet Count 102 TH/MM3 (150-450) Mean Platelet Volume 7.5 FL (7.0-11.0) Neutrophils (%) (Auto) 86.3 % (16.0-70.0) Lymphocytes (%) (Auto) 6.1 % (9.0-44.0) Monocytes (%) (Auto) 7.5 % (0.0-8.0) Eosinophils (%) (Auto) 0.0 % (0.0-4.0) Basophils (%) (Auto) 0.1 % (0.0-2.0) Neutrophils # (Auto) 10.5 TH/MM3 (1.8-7.7) Lymphocytes # (Auto) 0.7 TH/MM3 (1.0-4.8) Monocytes # (Auto) 0.9 TH/MM3 (0-0.9) Eosinophils # (Auto) 0.0 TH/MM3 (0-0.4) Basophils # (Auto) 0.0 TH/MM3 (0-0.2) CBC Comment DIFF FINAL Differential Comment Blood Urea Nitrogen 22 MG/DL (7-18) Creatinine 1.47 MG/DL (0.60-1.30) Random Glucose 113 MG/DL (74-106) Calcium Level 7.9 MG/DL (8.5-10.1) Magnesium Level 2.8 MG/DL (1.5-2.5) Sodium Level 144 MEQ/L (136-145) Potassium Level 4.7 MEQ/L (3.5-5.1) Chloride Level 111 MEQ/L (98-107) Carbon Dioxide Level 25.3 MEQ/L (21.0-32.0) Anion Gap 8 MEQ/L (5-15) Estimat Glomerular Filtration Rate 48 ML/MIN (>89) Result Diagram: 02/04/18 0400 02/04/18399 EKG: relatively unchanged Telemetry: sinus tach (1) COPD (chronic obstructive pulmonary disease) Plan: symbicort, nebs ezpap acapella (2) CAD (coronary artery disease) Plan: on ASA, stain , BB (3) Hypertension Plan: eval for BB / re-discuss allergy with pt pt not allergic to BB add po (4) Hyperlipemia Plan: on statin (5) S/P CABG (coronary artery bypass graft) Plan: ASA, statin pulm toileting OOB after bedrest completed . eval for HHC at discharge keep in CVICU for now Radha Doran February 04, 2018 09:57
[2018-02-04] MEDS: INSULIN ASPART SUPPLEMENTAL SCALE SQ SCH ×4 (10:00→22:00)
[2018-02-04] MEDS ORDERED: FUROSEMIDE 20 MG/2 ML VIAL IV PUSH ONE (10:00)
[2018-02-04] MEDS: RESP: ALBUTEROL 2.5 MG/IPRATROPIUM 0.5 MG NEB (PRN) NEB ×2 (10:01→18:08)
[2018-02-04] MEDS: EZETIMIBE 10 MG TAB PO SCH (10:13)
[2018-02-04] MEDS: ASPIRIN 81 MG CHEW TAB PO SCH (10:13)
[2018-02-04] MEDS ORDERED: METOPROLOL TARTRATE 5 MG/5 ML VIAL IV PUSH ONE (10:30)
[2018-02-04] MEDS: FOLIC ACID 1 MG TAB PO SCH (10:39)
[2018-02-04] MEDS: METOPROLOL TARTRATE 25 MG TAB PO SCH ×2 (10:39→21:00)
[2018-02-04] MEDS: THIAMINE HCL 100 MG TAB PO SCH (10:39)
[2018-02-04] MEDS ORDERED: LISINOPRIL 10 MG TAB PO SCH (11:00)
[2018-02-04 14:50] LABS: ALBUMIN 2.7 GM/DL (3.4-5.0); DIRECT BILIRUBIN ADULT 0.3 MG/DL (0.0-0.2)
[2018-02-04 14:53] LABS: INDIRECT BILIRUBIN 0.4 MG/DL (0.0-0.8); TOTAL BILIRUBIN ADULT 0.7 MG/DL (0.2-1.0)
--- NOTE | 2018-02-04 15:00 | RADRPT ---
EXAM DATE/TIME: 02/04/2018 14:51 [facility] COMPARISON: No previous studies available for comparison. INDICATIONS : Bilateral visual deficits RADIATION DOSE: 36.43 CTDIvol (mGy) This report was called by Dr. Daigle to Dr. Beltrán at 2: 57 PM MEDICAL HISTORY : Cardiovascular disease. Chronic obstructive pulmonary disease. Hypertension. SURGICAL HISTORY : None. ENCOUNTER: Initial ACUITY: 1 day PAIN SCALE: 0/10 LOCATION: cranial TECHNIQUE: Multiple contiguous axial images were obtained of the head. Using automated exposure control and adj ustment of the mA and/or kV according to patient size, radiation dose was kept as low as reasonably a chievable to obtain optimal diagnostic quality images. DICOM format image data is available electro nically for review and comparison. FINDINGS: CEREBRUM: The ventricles are normal for age. No evidence of midline shift, mass lesion, hemorrhage or acute in farction. No extra-axial fluid collections are seen. POSTERIOR FOSSA: The cerebellum and brainstem are intact. The 4th ventricle is midline. The cerebellopontine angle i s unremarkable. EXTRACRANIAL: The visualized portion of the orbits is intact. SKULL: The calvaria is intact. No evidence of skull fracture. CONCLUSION: Normal examination for a patient of this age. Ortiz Carmona MD on February 04, 2018 at 14:55 Board Certified Radiologist. This report was verified electronically.
[2018-02-04 15:17] LABS: AUTOMATED NEUTROPHIL # 14.3 TH/MM3 (1.8-7.7); BASOPHIL % 0.2 % (0.0-2.0); HEMATOCRIT 30.8 % (39.0-51.0); HEMOGLOBIN 10.2 GM/DL (13.0-17.0); LYMPH % 10.5 % (9.0-44.0); LYMPHOCYTE # 1.9 TH/MM3 (1.0-4.8); MEAN CELL VOLUME 89.1 FL (80.0-100.0); MEAN CORPUSCULAR HEMOGLOBIN 29.7 PG (27.0-34.0); MEAN CORPUSCULAR HGB CONC 33.3 % (32.0-36.0); MONO % 10.2 % (0.0-8.0); MONOCYTE # 1.8 TH/MM3 (0-0.9); NEUT % 79.1 % (16.0-70.0); PLATELET COUNT 104 TH/MM3 (150-450); RED BLOOD COUNT 3.45 MIL/MM3 (4.50-5.90); RED CELL DISTRIBUTION WIDTH 14.5 % (11.6-17.2)
[2018-02-04 15:28] LABS: PROTHROMBIN TIME - PATIENT 10.3 SEC (9.8-11.6)
--- NOTE | 2018-02-04 15:34 | RADRPT ---
EXAM DATE/TIME: 02/04/2018 15:06 [facility] COMPARISON: No previous studies available for comparison. INDICATIONS : Bilateral vision deficits IV CONTRAST: 49 cc Visipaque (iodixanol) IV ; Cumulative dose for multiple exams. RADIATION DOSE: 27.39 CTDIvol (mGy) ; Combined studies MEDICAL HISTORY : Chronic obstructive pulmonary disease. Cardiovascular disease Hypertension. SURGICAL HISTORY : CABG ENCOUNTER: Initial ACUITY: 1 day PAIN SCALE: 0/10 LOCATION: CTA HEAD TECHNIQUE: Volumetric scanning was performed using a multi-row detector CT scanner. The data was post processed with a variety of visualization algorithms including full volume maximum intensity projection, multi -planar sliding thin slab reformation, curved planar reformation, and surface rendering techniques. Using automated exposure control and adjustment of the mA and/or kV according to patient size, radiat ion dose was kept as low as reasonably achievable to obtain optimal diagnostic quality images. DICO M format image data is available electronically for review and comparison. FINDINGS: Anterior circulation: Distal intracranial internal carotid arteries are patent with flow extending to the middle and anteri or cerebral arteries. There is no evidence for aneurysm, vessel truncation or stenosis, and no eviden ce for vascular malformation. Posterior circulation: Symmetric distal vertebral arteries with flow extending to basilar artery. There is no evidence for aneurysm, vessel truncation or stenosis, and no evidence for vascular malformation. CONCLUSION: 1. Unremarkable head CTA. No evidence for large vessel occlusion. Gonzalo Jean MD on February 04, 2018 at 15:29 Board Certified Radiologist. This report was verified electronically.
[2018-02-04] MEDS ORDERED: IODIXANOL 320 MG/ML 10 ML VIAL (for Rad CT) IVCONTRAST ONE (15:37)
[2018-02-04 15:56] LABS: TROPONIN I 7.21 NG/ML (0.02-0.05)
--- NOTE | 2018-02-04 16:03 | RADRPT ---
EXAM DATE/TIME: 02/04/2018 15:06 [facility] COMPARISON: No previous studies available for comparison. INDICATIONS : Visual deficits IV CONTRAST: 49 cc Visipaque (iodixanol) IV ; Cumulative dose for multiple exams. RADIATION DOSE: 27.39 CTDIvol (mGy) ; Combined studies MEDICAL HISTORY : Chronic obstructive pulmonary disease. Cardiovascular disease Hypertension. SURGICAL HISTORY : CABG ENCOUNTER: Initial ACUITY: 1 day PAIN SCALE: 0/10 LOCATION: CTA Neck Elevated flow velocities and ICA/CCA ratios have been found to correlate with increased degrees of vessel stenosis, calculated as percentage of diameter relative to a normal segment of distal ICA/CCA. TECHNIQUE: Volumetric scanning was performed using a multirow detector CT scanner. The data was post processed with a variety of visualization algorithms including full-volume maximum intensity projection, multip lanar sliding thin-slab reformation, curved-planar reformation, and surface-rendering techniques. Us ing automated exposure control and adjustment of the mA and/or kV according to patient size, radiatio n dose was kept as low as reasonably achievable to obtain optimal diagnostic quality images. DICOM f ormat image data is available electronically for review and comparison. FINDINGS: AORTIC ARCH: There is a three-vessel origin of the great vessels from the aorta. Minimal atherosclerotic calcifica tions without flow-limiting stenosis. Minimal eccentric plaque in the origin of the right subclavian artery without significant flow-limiting stenosis. RIGHT CAROTID: The common carotid artery is intact. The carotid bulb has a normal configuration without ulceration o r narrowing. The internal carotid artery lumen is smooth without stenosis. The external carotid mitra ry is intact. LEFT CAROTID: The common carotid artery is intact. The carotid bulb has a normal configuration without ulceration or narrowing. The internal carotid artery lumen is smooth without stenosis. The external carotid ar bogdan is intact. VERTEBRALS: The vertebral arteries have a symmetric diameter. No stenotic lesions are seen. ADD FINDINGS: Immediate postsurgical features of CABG are noted in the mediastinum and soft tissues. There is a lef t subclavian central line in place. There is a mediastinal drain and left apical chest tube which are partially imaged. Moderate centrilobular emphysema of the lung apices. Small amount of fluid in the maxillary sinuses likely related to recent intubation. CONCLUSION: 1. No flow-limiting stenosis or dissection in the carotid or vertebral arteries. 2. Immediate postsurgical features of CABG. Gonzalo Jean MD on February 04, 2018 at 15:56 Board Certified Radiologist. This report was verified electronically.
[2018-02-04] MEDS ORDERED: LORazepam 2 MG/ML VIAL ONE ×2 (17:09→17:48)
[2018-02-04] MEDS ORDERED: LORazepam 2 MG/ML VIAL IV PUSH ONE ×2 (17:48→18:45)
--- NOTE | 2018-02-04 18:35 | MB ---
cc: Aileen Beltrán MD, Dalia MD DATE: 02/04/2018 REASON FOR CONSULTATION: Stroke alert. HISTORY OF PRESENT ILLNESS: The patient is a 67-year-old gentleman admitted to the hospital 02/02 with chest pain. He has a history of heart disease, hypertension, PVD, hyperlipidemia and COPD. Apparently, he was eating dinner on the , started to have some chest pain, pressure type without radiation. He was given nitro, did not respond, relieved with morphine. He subsequently did undergo bypass surgery 3 vessels yesterday. Today they tried to get him up into a chair and, all of a sudden, he became confused and was unable to see. He did undergo stroke alert protocol CT CTAs which were really unremarkable. He has pending an MRI of the brain as I am dictating and he is being seen also by ophthalmology. His pupils are being dilated for complete evaluation. HOME MEDICATIONS: 1. Crestor. 2. Lisinopril. 3. Symbicort. 4. ProAir. 5. Triamcinolone topical 6. Baby aspirin. 7. Vitamin C, 8. Zetia 9. Vitamin E 10. Vitamin B 11. Alprazolam p.r.n. ALLERGIES: METOPROLOL. SOCIAL HISTORY: He has a history of tobacco use in the past. No alcohol, no substance abuse. PHYSICAL EXAMINATION: VITAL SIGNS: On exam, his temperature is 98.9, pulse 90, respiratory rate 18, blood pressure 103/53, satting at 92% 3 liters nasal cannula. NECK: Supple. HEART: Regular. He has not been in atrial fibrillation I am informed. NEUROLOGIC: His pupils are dilating right now so they are not reactive, but he has normal extraocular movements. He can actually track my finger. He can perceive light in both eyes. He can blink to threat, but he cannot describe any objects. I held with pen. I held my stethoscope and a pair of glasses and he was unable to see that. He cannot count fingers. His speech is normal. His face is symmetrical. His tongue is midline. Memory pierce, he knows he is in the hospital. He knows he is in [place]. He is originally from [place]. After some time, he was able to tell me that he was from [place]. He does not know the month or the year. He knows his date of and his age. Speech otherwise is normal. Motor pierce no lateralizing weakness. No drift or leg lag. Toes are neutral. DTRs are 1+. Cerebellar cannot assess at this time nor gait. LABORATORY DATA: Reviewed. His white count is 18,000, hemoglobin 10.2, hematocrit 30.8, platelets 104,000. His coag panel is normal today. Chemistries - creatinine 1.7, glucose 106. CK is 1620. His troponin is 7.21. CK 2 is 38.3. CK 2% -2.4. IMAGING STUDIES: Chest x-ray: Clear lungs. Head CT: Normal without any acute findings. CTA of the [place]: No large vessel occlusion. CTA of the carotids: No flow-limiting stenosis or dissection. ASSESSMENT AND PLAN: A 67-year-old man with decreased vision, may have cortical blindness from a stroke. Recommend completing the ophthalmological evaluation, having him undergo an MRI of the brain as soon as possible watching for any dysrhythmia. Continue him on aspirin therapy. Further recommendations will be made accordingly. He was not a candidate for TPA due to recent surgery postop day 1. MD SHIRA Robles/ , 05:04 PM , 06:33 PM
[2018-02-04] MEDS: DEXMEDETOMIDINE INJ 200 MCG in SODIUM CHLORIDE 0.9% INJ 50 ML IV PRN ×3 (19:30→21:57)
[2018-02-04] MEDS ORDERED: EPINEPHrine HCL (1:10,000) 1 MG/10 ML SYRINGE ONE (19:51)
[2018-02-04] MEDS ORDERED: ATROPINE SULFATE 1 MG/10 ML SYRINGE ONE (19:51)
--- NOTE | 2018-02-04 20:49 | PD.PROCEDR ---
Procedure Note Procedure Moderate Sedation Diagnosis: Acute neurologic deficit Indications: Need for emergent MRI. This is a 67-year-old male with acute delirium and acute focal deficit needing emergent MRI. Unable to get MRI safely without sedation. I provided bedside sedation for the entirety of the procedure. Consent: Emergent Planned Procedure: Sedated MRI Airway Exam: Patient is an oropharyngeal class II airway with adequate neck extension and flexion. Normal airway opening. Intact dentition. Anticipated easy airway. Sedation plan: Moderate sedation with dexmedetomidine. Total sedation time: 69 minutes Please see sedation record scanned into medical record. The patient's past medical history, allergies, medications, and prior airway records were reviewed. A time-out procedure was performed. The patient underwent the above planned procedure and tolerated it well. They remained hemodynamically stable throughout. At the conclusion of the case, the patient was back to neurologic baseline and their care was turned over to the bedside RN. No immediate complications noted. I personally performed the sedation. Ronnie Edwards MD February 04, 2018 20:49
[2018-02-04] MEDS: DOCUSATE SODIUM 100 MG CAP PO SCH (21:00)
[2018-02-04] MEDS: SENNOSIDES 8.6 MG TAB PO SCH (21:00)
[2018-02-04] MEDS: ATORVASTATIN 40 MG TAB PO SCH (21:00)
--- NOTE | 2018-02-04 21:06 | PD.CONS ---
[facility] Service Critical Care Medicine Consult Requested By Dr. Cardona Reason for Consult new neurologic deficits Primary Care Physician JOHN Avila History of Present Illness This is a 67-year-old male who presented the emergency department with acute onset substernal chest pain and was found to have an 80% left main lesion and an active NSTEMI. He was taken for emergent left heart catheterization. Intra- arterial balloon pump was placed, but the patient's chest pain was not relieved despite mechanical support and nitroglycerin. The patient was then taken for emergent on pump coronary artery bypass grafting. His postoperative course was complicated by chest tube output which was approximately 750 cc. His hemoglobin did drop to 8.9 this AM for which he received 1 unit prbc. He was extubated on pathway overnight. This afternoon, he complained of new and sudden onset bilateral visual loss. He denies eye pain, photophobia, double vision, blurry vision. He endorses complete visual loss. He does state that he can see some light. Emergent stroke alert was called and the patient was taken down to noncontrasted head CT which was negative for acute bleed. This was followed by CTA head and neck which was negative for large vessel thrombus. In specific, excellent visualization of the posterior circulation as well as patent visualization of the bilateral ophthalmic arteries. I called ophthalmology who came immediately to the bedside to evaluate the patient. She describes no evidence of central retinal artery occlusion or retinal hemorrhage , but does describe significantly pale optic disks consistent with ischemic optic neuropathy. After this, an attempt was made to travel to MRI, but the patient became severely agitated and delirious we were unable to obtain MRI. At this point, I performed conscious sedation in order to obtain the emergent MRI, and a second attempt was successful to obtain the MRI. Review of Systems ROS Limitations: Clinical Condition, Altered Mental Status Constitutional: DENIES: Fatigue, Fever, Chills Eyes: COMPLAINS OF: Vision loss, DENIES: Blurred vision, Diplopia, Eye inflammation, Eye pain, Photosensitivity, Double Vision Ears, nose, mouth, throat: DENIES: Tinnitus, Hearing loss, Vertigo, Nasal discharge, Oral lesions, Throat pain, Hoarseness Respiratory: DENIES: Apneas, Cough, Wheezing, Hemoptysis, Sputum production, Shortness of breath Cardiovascular: DENIES: Chest pain, Palpitations, Syncope, Dyspnea on Exertion , PND, Lower Extremity Edema Gastrointestinal: DENIES: Abdominal pain, Black stools, Bloody stools, Constipation, Diarrhea, Nausea, Vomiting Musculoskeletal: DENIES: Muscle aches, Back pain, Neck pain Integumentary: DENIES: Rash Hematologic/lymphatic: DENIES: Bruising Neurologic: DENIES: Abnormal gait, Headache, Localized weakness, Paresthesias Psychiatric: DENIES: Anxiety, Confusion Past Family Social History Allergies: Coded Allergies: No Known Allergies (Unverified , 02/04/18) Past Medical History Coronary artery disease Prior myocardial infarction Prior PCI to left circumflex back in 1995 Peripheral arterial disease History of claudication symptoms Right iliac stent Hyperlipidemia COPD Tobacco abuse Past Surgical History Prior PCI Iliac artery stent Reported Medications Crestor (Rosuvastatin Calcium) 20 Mg Tab 20 Mg PO DAILY Lisinopril 10 Mg Tab 10 Mg PO DAILY Symbicort Inh (Budesonide/Formoterol Fumarate) 80-4.5 Mcg/Act Aero 2 Puff INH Q12HR Proair Hfa 8.5 GM Inh (Albuterol Sulfate) 90 Mcg/Act Aer 2 Puff INH Q4-6H PRN 108 mcg/actuation Triamcinolone Topical (Triamcinolone Acetonide) 0.025% Cream 1 Applic TOPICAL BID Aspirin Low Dose (Aspirin) 81 Mg Chew 81 Mg CHEW DAILY Ascorbic Acid 500 Mg Tab 500 Mg PO DAILY Zetia (Ezetimibe) 10 Mg Tab 10 Mg PO DAILY Vitamin E (Vitamin E (Topical)) 100 Unit/Gm Cre Vitamin B Complex (B-Complex Vitamins) 1 Tab Alprazolam 0.5 Mg Tab 0.5 Mg PO Q8H PRN Active Ordered Medications See MAR Family History Reviewed and found to be noncontributory to his acute illness Social History 1 pack per day smoker. Occasional alcohol. Physical Exam Vital Signs Vital Signs Date Time Temp Pulse Resp B/P (MAP) Pulse Ox O2 Delivery O2 Flow Rate FiO2 02/04/18 15:30 92 Nasal Cannula 3.00 02/04/18 15:30 90 02/04/18 15:30 98.9 100 18 103/53 (70) 92 02/04/18 11:00 113 02/04/18 11:00 98.7 116 18 116/70 (85) 93 Arterial Line 02/04/18 11:00 93 Nasal Cannula 3.00 02/04/18 10:03 94 Nasal Cannula 2.00 02/04/18 08:38 98.7 91 16 118/41 95 02/04/18 08:16 98.7 100 16 122/44 95 02/04/18 08:00 81/54 (71) 02/04/18 07:00 89/48 (72) 02/04/18 07:00 98.4 101 16 113/65 (81) 92 110/43 (65) 02/04/18 07:00 90 02/04/18 07:00 92 Nasal Cannula 3.00 02/04/18 06:00 65/40 (65) 02/04/18 05:16 98.6 83 12 116/71 (86) 94 02/04/18 05:00 77/55 (67) 02/04/18 04:00 92/70 (80) 02/04/18 03:00 95 Nasal Cannula 2.00 02/04/18 03:00 84/55 (70) 02/04/18 03:00 80 02/04/18 02:00 98 Nasal Cannula 3.00 02/04/18 02:00 73/51 (73) 02/04/18 01:00 69/42 (75) 02/04/18 00:05 98 Nasal Cannula 4 40 02/04/18 00:05 99 Nasal Cannula 4.00 02/04/18 00:00 82/59 (80) 02/03/18 23:38 99 40 02/03/18 23:00 97.5 81 16 126/70 (88) 98 Arterial Line 02/03/18 23:00 99 Mechanical Ventilator 40 02/03/18 23:00 40 02/03/18 23:00 84/62 (90) 02/03/18 23:00 80 02/03/18 22:41 99 40 02/03/18 22:00 92/60 (95) 02/03/18 21:00 74/51 (76) Physical Exam GENERAL: Middle-age appearing male, lying in bed, in acute distress due to his visual loss HEENT: Normocephalic. Atraumatic. Pupils are 3 mm, equal, round, but nonreactive to light. Extraocular muscles are intact. Mucous membranes are moist NECK: Trachea is midline. There is no JVD. CHEST: Left subclavian introducer sheath is clean and dry with a dressing intact. Patient is on nasal cannula oxygen. Equal chest rise. Chest tubes exit subxiphoid with a moderate amount of sanguinous output. No air leak. CARDIOVASCULAR: Tachycardic rate, regular rhythm. Appears sinus by telemetry. Median sternotomy incision is clean, dry, a wound VAC dressing is in place. ABDOMEN: Soft, nontender, nondistended. No guarding. MUSCULOSKELETAL: Pulses 2+. No peripheral edema. NEUROLOGICAL: Patient is a RASS +1. CAM +. Follows commands in all 4 extremities. The patient does blink to threat. Pupils are as described above, nonreactive. There is gross objective visual loss in bilateral eyes in all visual h[place] as objectively tested with finger number discrimination. Patient does describe ability to see light. Laboratory Laboratory Tests Test 02/04/18 04:00 02/04/18 14:39 White Blood Count 12.2 18.0 Red Blood Count 2.94 3.45 Hemoglobin 8.9 10.2 Hematocrit 26.7 30.8 Mean Corpuscular Volume 90.8 89.1 Mean Corpuscular Hemoglobin 30.3 29.7 Mean Corpuscular Hemoglobin Concent 33.4 33.3 Red Cell Distribution Width 14.0 14.5 Platelet Count 102 104 Mean Platelet Volume 7.5 8.0 Neutrophils (%) (Auto) 86.3 79.1 Lymphocytes (%) (Auto) 6.1 10.5 Monocytes (%) (Auto) 7.5 10.2 Eosinophils (%) (Auto) 0.0 0.0 Basophils (%) (Auto) 0.1 0.2 Neutrophils # (Auto) 10.5 14.3 Lymphocytes # (Auto) 0.7 1.9 Monocytes # (Auto) 0.9 1.8 Eosinophils # (Auto) 0.0 0.0 Basophils # (Auto) 0.0 0.0 CBC Comment DIFF FINAL DIFF FINAL Differential Comment Blood Urea Nitrogen 22 Creatinine 1.47 Random Glucose 113 Calcium Level 7.9 Magnesium Level 2.8 Sodium Level 144 Potassium Level 4.7 Chloride Level 111 Carbon Dioxide Level 25.3 Anion Gap 8 Estimat Glomerular Filtration Rate 48 Total Bilirubin 0.7 Direct Bilirubin 0.3 Indirect Bilirubin 0.4 Aspartate Amino Transf (AST/SGOT) 69 Alanine Aminotransferase (ALT/SGPT) 20 Alkaline Phosphatase 32 Total Protein 4.0 Albumin 2.7 Bedside Hemoglobin 10.2 Bedside Hematocrit 30.0 Prothrombin Time 10.3 Prothromb Time International Ratio 1.0 Activated Partial Thromboplast Time 24.6 Fibrinogen 317 Bedside Sodium 141 Bedside Potassium 4.2 Bedside Chloride 102 Bedside Blood Urea Nitrogen 23 Bedside Creatinine 1.7 Bedside Glucose 106 Total Creatine Kinase 1620 Creatine Kinase MB 38.3 Creatine Kinase MB % 2.4 Troponin I 7.21 Result Diagram: 02/04/18 1439 02/04/18 0400 Imaging Last Impressions Chest X-Ray 02/04/18 0500 Signed Impressions: Service Date/Time: January 03:51 - CONCLUSION: Clear lungs. Ralph Menendez Jr., MD Neck CTA 02/04/18 0000 Signed Impressions: Service Date/Time: January 15:06 - CONCLUSION: 1. No flow-limiting stenosis or dissection in the carotid or vertebral arteries. 2. Immediate postsurgical features of CABG. Gonzalo Jean MD Head CTA 02/04/18 0000 Signed Impressions: Service Date/Time: January 15:06 - CONCLUSION: 1. Unremarkable head CTA. No evidence for large vessel occlusion. Gonzalo Jean MD Head CT 02/04/18 0000 Signed Impressions: Service Date/Time: January 14:51 - CONCLUSION: Normal examination for a patient of this age. Ortiz Carmona MD Assessment and Plan Assessment and Plan Assessment: 67-year-old male postop day 1 status post on pump coronary artery bypass grafting with new acute bilateral visual loss. The patient's clinical symptoms are most likely consistent with ischemic optic neuropathy and postoperative visual loss. Although this is a well described phenomenon, in particular with regards to prone spine surgery, there have been at least a documented reported cases of postoperative visual loss secondary to ischemic optic neuropathy after cardiac pulmonary bypass procedures. With regards to this patient, the only modifiable risk factor which has been born out of the retrospective case reports would be transfusing to hemoglobin greater than 9. The patient remains critically ill with new neurologic deficits. Keep in ICU. Transfuse to hemoglobin greater than 9. Appreciate ophthalmology involvement. Prevent hypotension, prevent anemia. Active problems: Bilateral visual field loss Ischemic optic neuropathy Postoperative visual loss Status post coronary artery bypass grafting Agitated delirium Plan: Ophthalmology following Maintain adequate perfusion pressure, may need norepinephrine Transfuse to hemoglobin greater than 9 Frequent neurochecks Dexmedetomidine for goal RASS 0. Avoid long-acting sedation Continue ongoing perioperative management for coronary artery bypass grafting including rate control and force diuresis I would recommend ophthalmology following along while inpatient and see the patient within the first week of being discharged from the hospital. I would also recommend that if the patient has persistent visual field deficits 6-8 weeks after hospital discharge, the patient seek subspecialist involvement from a neuro-galley boy, the closest which is likely at the [facility]. If this truly is ischemic optic neuropathy, the long-term prognosis is quite poor and the patient will likely have some element of lasting visual field loss. I have discussed case fully with Dr. Crenshaw the galley boy, Dr. Olguin, radiology team, and Dr. Sanches with anesthesia. This patient remains critically ill with one or more organ systems which are or may become a threat to life. I have spent in excess of 111 minutes discontinuously in the care and management of this patient. This time includes time I spent at the bedside with the patient evaluating the potential stroke, discussions with multiple consultants, re-evaluations throughout the day, and continuing to stabilize his hemodynamics and neurologic status. This time is exclusive of procedures, and includes, but is not limited to, evaluation of the patient, review of the medical record, discussions with family, consultants, nursing staff, or respiratory therapy, and documentation in the medical record. Ronnie Edwards MD February 04, 2018 21:06
--- NOTE | 2018-02-04 21:52 | RADRPT ---
EXAM DATE/TIME: 02/04/2018 20:16 [facility] COMPARISON: CT BRAIN W/O CONTRAST, February 04, 2018, 14:51. INDICATIONS : CVA. New-onset acute bilateral blindness. MEDICAL HISTORY : Hypertension. Cardiovascular disease Chronic obstructive pulmonary disease. PVD. SURGICAL HISTORY : CABG ENCOUNTER: Initial ACUITY: 1 day PAIN SCORE: Nonresponsive. LOCATION: Bilateral cranial TECHNIQUE: Multiplanar, multisequence MRI of the brain was performed without contrast. FINDINGS: CEREBRUM: There are multiple small peripheral areas of signal abnormality seen in the cerebral hemispheres on t he diffusion weighted images primarily seen in the bilateral parietal, posterior medial right occipit al, and anterior right frontal lobes. There also multiple small areas seen in the cerebellar hemisphe res bilaterally being more numerous on the right. There are several small punctate areas of decreased signal on the SWI images likely related to either petechial hemorrhage or prior hemorrhage. A taylor area of acute focal hemorrhage is not seen. The ventricles are normal for age. No evidence of midlin e shift, mass lesion, focal hemorrhage. No extraaxial fluid collections are seen. The pituitary gla nd and suprasellar cistern are normal in configuration. WHITE MATTER: There are a few scattered small focal areas of signal abnormality seen in the white matter. POSTERIOR FOSSA: Begin there are the multiple areas of signal abnormality in the diffusion weighted images in the cere bral hemispheres being more prominent on the right. Otherwise, the cerebellum and brainstem are intac t. The 4th ventricle is midline. The cerebellopontine angle is unremarkable. The cerebellar tonsils are normal in position. EXTRACRANIAL: The visualized portions of the orbits and paranasal sinuses are unremarkable. There is left parietal scalp swelling. There is left maxillary sinus disease. CONCLUSION: 1. Numerous small areas of signal abnormality seen in the cerebral and cerebellar hemispheres consist ent multiple small areas of infarction. 2. There are a few scattered areas of signal abnormality within the cerebral white matter likely rela haydee to small vessel ischemic change. Tommie Swain MD on February 04, 2018 at 21:43 Board Certified Radiologist. This report was verified electronically.
--- NOTE | 2018-02-04 23:26 | PD.CONS ---
History of Present Illness Service Ophthalmology Consult Requested By Dr. Edwards Reason for Consult bilateral vision loss Primary Care Physician JOHN Avila Diagnoses: History of Present Illness 67 yo M with h/o CAD, HTN, PVD, dyslipidemia and COPD who presented to ED with chest pain and diagnosed with NSTEMI. He was taken for emergent left heart catheterization and emergent CABG. His hemoglobin dropped to 8.9 this AM for which he received 1 unit prbc. He was extubated on pathway overnight. This afternoon, he complained of new and sudden onset bilateral visual loss. Head CT was negative for acute bleed. This was followed by CTA head and neck which was negative for large vessel thrombus. MRI brain showed numerous small areas of signal abnormality seen in the cerebral and cerebellar hemispheres consistent multiple small areas of infarction and small vessel ischemic change. Nothing in imaging explained the vision loss. Patient seems confused at bedside. States he has no significant ocular history. Past Family Social History Allergies: Coded Allergies: No Known Allergies (Unverified , 02/04/18) Physical Exam Vital Signs Vital Signs Date Time Temp Pulse Resp B/P (MAP) Pulse Ox O2 Delivery O2 Flow Rate FiO2 02/04/18 20:54 98 Nasal Cannula 4.00 02/04/18 19:50 20 02/04/18 19:30 98 Nasal Cannula 5.00 02/04/18 15:30 92 Nasal Cannula 3.00 02/04/18 15:30 90 02/04/18 15:30 98.9 100 18 103/53 (70) 92 02/04/18 11:00 113 02/04/18 11:00 98.7 116 18 116/70 (85) 93 Arterial Line 02/04/18 11:00 93 Nasal Cannula 3.00 02/04/18 10:03 94 Nasal Cannula 2.00 02/04/18 08:38 98.7 91 16 118/41 95 02/04/18 08:16 98.7 100 16 122/44 95 02/04/18 08:00 81/54 (71) 02/04/18 07:00 89/48 (72) 02/04/18 07:00 98.4 101 16 113/65 (81) 92 110/43 (65) 02/04/18 07:00 90 02/04/18 07:00 92 Nasal Cannula 3.00 02/04/18 06:00 65/40 (65) 02/04/18 05:16 98.6 83 12 116/71 (86) 94 02/04/18 05:00 77/55 (67) 02/04/18 04:00 92/70 (80) 02/04/18 03:00 95 Nasal Cannula 2.00 02/04/18 03:00 84/55 (70) 02/04/18 03:00 80 02/04/18 02:00 98 Nasal Cannula 3.00 02/04/18 02:00 73/51 (73) 02/04/18 01:00 69/42 (75) 02/04/18 00:05 98 Nasal Cannula 4 40 02/04/18 00:05 99 Nasal Cannula 4.00 02/04/18 00:00 82/59 (80) 02/03/18 23:38 99 40 Physical Exam Va sc at near OD HM, HM (inconsistent with responses) EOM full OU CVF unable Pupils 2-1 no APD OU IOP normal to palpation OU Anterior exam OD - normal eyelid, C/S W&Q, K clear, AC deep, pupil round, lens clear OS - normal eyelid, C/S W&Q, K clear, AC deep, pupil round, lens clear Dilated exam OD - pale ON, ves normal, vit clear, retina flat OS - pale ON, ves normal, vit clear, retina flat Laboratory Laboratory Tests Test 02/04/18 04:00 02/04/18 14:39 White Blood Count 12.2 18.0 Red Blood Count 2.94 3.45 Hemoglobin 8.9 10.2 Hematocrit 26.7 30.8 Mean Corpuscular Volume 90.8 89.1 Mean Corpuscular Hemoglobin 30.3 29.7 Mean Corpuscular Hemoglobin Concent 33.4 33.3 Red Cell Distribution Width 14.0 14.5 Platelet Count 102 104 Mean Platelet Volume 7.5 8.0 Neutrophils (%) (Auto) 86.3 79.1 Lymphocytes (%) (Auto) 6.1 10.5 Monocytes (%) (Auto) 7.5 10.2 Eosinophils (%) (Auto) 0.0 0.0 Basophils (%) (Auto) 0.1 0.2 Neutrophils # (Auto) 10.5 14.3 Lymphocytes # (Auto) 0.7 1.9 Monocytes # (Auto) 0.9 1.8 Eosinophils # (Auto) 0.0 0.0 Basophils # (Auto) 0.0 0.0 CBC Comment DIFF FINAL DIFF FINAL Differential Comment Blood Urea Nitrogen 22 Creatinine 1.47 Random Glucose 113 Calcium Level 7.9 Magnesium Level 2.8 Sodium Level 144 Potassium Level 4.7 Chloride Level 111 Carbon Dioxide Level 25.3 Anion Gap 8 Estimat Glomerular Filtration Rate 48 Total Bilirubin 0.7 Direct Bilirubin 0.3 Indirect Bilirubin 0.4 Aspartate Amino Transf (AST/SGOT) 69 Alanine Aminotransferase (ALT/SGPT) 20 Alkaline Phosphatase 32 Total Protein 4.0 Albumin 2.7 Bedside Hemoglobin 10.2 Bedside Hematocrit 30.0 Prothrombin Time 10.3 Prothromb Time International Ratio 1.0 Activated Partial Thromboplast Time 24.6 Fibrinogen 317 Bedside Sodium 141 Bedside Potassium 4.2 Bedside Chloride 102 Bedside Blood Urea Nitrogen 23 Bedside Creatinine 1.7 Bedside Glucose 106 Total Creatine Kinase 1620 Creatine Kinase MB 38.3 Creatine Kinase MB % 2.4 Troponin I 7.21 Result Diagram: 02/04/18 1439 02/04/18 0400 Assessment and Plan Problem List: (1) Ischemic optic neuropathy of both eyes ICD Codes: H47.013 - Ischemic optic neuropathy, bilateral Plan: Low blood pressure and anemia are the most common causes of ION in the perioperative setting of a CABG. No treatment has been shown to be effective other than correcting the underlying causes with a blood transfusion if necessary. Prognosis for visual recovery is poor. Will follow the patient while in the hospital and as an outpatient. Afshan Crenshaw MD February 04, 2018 23:26
[2018-02-05] VITALS (11 sets, daily range): BP systolic 95–123; BP diastolic 51–84; PULSE 91–123; RESP 16–24; TEMP 97.6–100.3; O2SAT 91–96
[2018-02-05] MEDS ORDERED: NOREPINEPHRINE 4 MG/D5W 250 ML IV PRN (02:15)
[2018-02-05] MEDS: INSULIN ASPART SUPPLEMENTAL SCALE SQ SCH ×6 (02:38→21:00)
[2018-02-05 06:01] LABS: AUTOMATED NEUTROPHIL # 12.9 TH/MM3 (1.8-7.7); BASOPHIL # 0.1 TH/MM3 (0-0.2); BASOPHIL % 0.4 % (0.0-2.0); EOSINOPHIL % 0.1 % (0.0-4.0); HEMATOCRIT 26.4 % (39.0-51.0); LYMPH % 11.5 % (9.0-44.0); LYMPHOCYTE # 1.9 TH/MM3 (1.0-4.8); MEAN CELL VOLUME 88.9 FL (80.0-100.0); MEAN CORPUSCULAR HEMOGLOBIN 30.4 PG (27.0-34.0); MEAN CORPUSCULAR HGB CONC 34.2 % (32.0-36.0); MEAN PLATELET VOLUME 8.3 FL (7.0-11.0); MONO % 10.7 % (0.0-8.0); MONOCYTE # 1.8 TH/MM3 (0-0.9); NEUT % 77.3 % (16.0-70.0); PLATELET COUNT 83 TH/MM3 (150-450); RED BLOOD COUNT 2.97 MIL/MM3 (4.50-5.90); RED CELL DISTRIBUTION WIDTH 14.5 % (11.6-17.2); WHITE BLOOD COUNT 16.7 TH/MM3 (4.0-11.0)
[2018-02-05] MEDS: AMIODARONE 200 MG TAB PO SCH ×2 (06:20→20:16)
[2018-02-05] MEDS: PANTOPRAZOLE SOD 40 MG DELAYED RELEASE TAB PO SCH (06:20)
[2018-02-05 06:30] LABS: BICARBONATE 27.8 MEQ/L (21.0-32.0); CALCIUM 7.7 MG/DL (8.5-10.1); CREATININE 1.7 MG/DL (0.60-1.30); MAGNESIUM 2.4 MG/DL (1.5-2.5)
[2018-02-05] MEDS ORDERED: FUROSEMIDE 40 MG/4 ML VIAL IV PUSH ONE (06:45)
[2018-02-05] MEDS ORDERED: METOPROLOL TARTRATE 5 MG/5 ML VIAL IV PUSH ONE (06:45)
[2018-02-05] MEDS ORDERED: METOPROLOL TARTRATE 25 MG TAB PO SCH (06:45)
[2018-02-05] MEDS ORDERED: ONDANSETRON HCL 4 MG/2 ML VIAL ONE (08:24)
[2018-02-05] MEDS: oxyCODONE/ACETAMINOPHEN 5 MG/325 MG TAB PO PRN (08:30)
[2018-02-05 08:40] LABS: OVALOCYTES 1+ (NORMAL)
[2018-02-05] MEDS: RESP: ALBUTEROL 2.5 MG/IPRATROPIUM 0.5 MG NEB (SCH) NEB ×3 (08:43→20:45)
[2018-02-05] MEDS: MULTIVITAMINS/MINERALS THERAPEUTIC TAB PO SCH (09:00)
[2018-02-05] MEDS: BUDESONIDE-FORMOTEROL 80/4.5 MCG INHALER INH SCH ×2 (09:00→20:14)
[2018-02-05] MEDS ORDERED: MAGNESIUM HYDROXIDE SUSP 30 ML CUP PO SCH (09:00)
[2018-02-05] MEDS: FOLIC ACID 1 MG TAB PO SCH (09:00)
[2018-02-05] MEDS: POLYETHYLENE GLYCOL 17 GM PKG PO SCH (09:00)
[2018-02-05] MEDS: DOCUSATE SODIUM 100 MG CAP PO SCH ×2 (09:00→20:13)
[2018-02-05] MEDS: ASPIRIN 81 MG CHEW TAB PO SCH (09:00)
[2018-02-05] MEDS: EZETIMIBE 10 MG TAB PO SCH (09:00)
[2018-02-05] MEDS: THIAMINE HCL 100 MG TAB PO SCH (09:00)
--- NOTE | 2018-02-05 09:40 | HHI.CCPN ---
Subjective Remarks/Hospital Course Hospital Course: This is a 67-year-old male who presented the emergency department with acute onset substernal chest pain and was found to have an 80% left main lesion and an active NSTEMI. He was taken for emergent left heart catheterization. Intra- arterial balloon pump was placed, but the patient's chest pain was not relieved despite mechanical support and nitroglycerin. The patient was then taken for emergent on pump coronary artery bypass grafting. His postoperative course was complicated by chest tube output which was approximately 750 cc. His hemoglobin did drop to 8.9 this AM for which he received 1 unit prbc. He was extubated on pathway overnight. This afternoon, he complained of new and sudden onset bilateral visual loss. He denies eye pain, photophobia, double vision, blurry vision. He endorses complete visual loss. He does state that he can see some light. Emergent stroke alert was called and the patient was taken down to noncontrasted head CT which was negative for acute bleed. This was followed by CTA head and neck which was negative for large vessel thrombus. In specific, excellent visualization of the posterior circulation as well as patent visualization of the bilateral ophthalmic arteries. I called ophthalmology who came immediately to the bedside to evaluate the patient. She describes no evidence of central retinal artery occlusion or retinal hemorrhage , but does describe significantly pale optic disks consistent with ischemic optic neuropathy. After this, an attempt was made to travel to MRI, but the patient became severely agitated and delirious we were unable to obtain MRI. At this point, I performed conscious sedation in order to obtain the emergent MRI, and a second attempt was successful to obtain the MRI. Subjective: 02/05: patient had recovery of vision overnight. MRI with small punctate ischemic areas suggestive of embolic phenomenon, but none large enough to cause symptoms of bilateral vision loss. Objective Vital Signs Date Time Temp Pulse Resp B/P (MAP) Pulse Ox O2 Delivery O2 Flow Rate FiO2 02/05/18 09:03 94 Venturi Mask 6.00 35 02/05/18 03:00 100.3 110 22 122/70 (87) Intake and Output 02/05/18 02/05/18 02/06/18 08:00 16:00 00:00 Intake Total 406 ml Output Total 400 ml Balance 6 ml Result Diagram: 02/05/18 0545 02/05/18 0545 Imaging Last Impressions Chest X-Ray 02/04/18 0500 Signed Impressions: Service Date/Time: January 03:51 - CONCLUSION: Clear lungs. Ralph Menendez Jr., MD Neck CTA 02/04/18 0000 Signed Impressions: Service Date/Time: January 15:06 - CONCLUSION: 1. No flow-limiting stenosis or dissection in the carotid or vertebral arteries. 2. Immediate postsurgical features of CABG. Gonzalo Jean MD Head CTA 02/04/18 0000 Signed Impressions: Service Date/Time: January 15:06 - CONCLUSION: 1. Unremarkable head CTA. No evidence for large vessel occlusion. Gonzalo Jean MD Head CT 02/04/18 0000 Signed Impressions: Service Date/Time: January 14:51 - CONCLUSION: Normal examination for a patient of this age. Ortiz Carmona MD Objective Remarks GENERAL: Middle-age appearing male, lying in bed, no distress this AM. HEENT: Normocephalic. Atraumatic. Pupils are 3 mm, reactive this morning. Extraocular muscles are intact. visual acuity appears to be intact, and he can see clearly to read accurately with bilateral eyes. Mucous membranes are moist NECK: Trachea is midline. There is no JVD. CHEST: Left subclavian introducer sheath is clean and dry with a dressing intact. Patient is on nasal cannula oxygen. Equal chest rise. Chest tubes exit subxiphoid with minimal serosanguinous output. No air leak. CARDIOVASCULAR: Tachycardic rate, regular rhythm. Appears sinus by telemetry. Median sternotomy incision is clean, dry, a wound VAC dressing is in place. ABDOMEN: Soft, nontender, nondistended. No guarding. MUSCULOSKELETAL: Pulses 2+. No peripheral edema. NEUROLOGICAL: Patient is a RASS 0. CAM -. Follows commands in all 4 extremities. No longer has any appreciable focal deficits. A/P Assessment and Plan Assessment: 67-year-old male postop day 2 status post on pump coronary artery bypass grafting complicated by new acute bilateral visual loss. Symptoms have now resolved. Although by history and exam yesterday, highly concerning for ischemic optic neuropathy and postoperative visual loss, that diagnosis has a poor prognosis and almost no recovery. The fact that he recovered would argue against the diagnosis. Regardless, would recommend keeping hgb > 9. continue management of post-cabg including diuresis and beta blockade today. can transfer out of ICU. Active problems: Bilateral visual field loss- resolved questionable Ischemic optic neuropathy- appears to have resolved. Postoperative visual loss- resolved Status post coronary artery bypass grafting Agitated delirium- improving. Plan: Ophthalmology following would recommend outpatient follow up with ophthalmology to confirm resolution of symptoms. Transfuse to hemoglobin greater than 9 Avoid long-acting sedation Continue ongoing perioperative management for coronary artery bypass grafting including rate control and force diuresis lasix 40mg iv x 1 lopressor 5mg iv x 1, then start 25mg po q8h. Critical care medicine will continue to follow while the patient remains in CVICU. we will sign off to Dr. De La Vega's team when he leaves the ICU. Ronnie Edwards MD February 05, 2018 09:40
--- NOTE | 2018-02-05 10:39 | RADRPT ---
EXAM DATE/TIME: 02/05/2018 10:21 [facility] COMPARISON: CHEST SINGLE AP, February 04, 2018, 3:51. INDICATIONS : r/o atelectasis / pna. MEDICAL HISTORY : Chronic obstructive pulmonary disease. Cardiovascular disease. Hypertension. SURGICAL HISTORY : CABG. ENCOUNTER: Subsequent ACUITY: 3 days PAIN SCORE: 8/10 LOCATION: Bilateral chest FINDINGS: A left-sided chest tube and a mediastinal tube are noted. There is patchy left basilar airspace disea se. I do not see a pneumothorax. CONCLUSION: Left basilar airspace disease. Garrick Castle MD on February 05, 2018 at 10:36 Board Certified Radiologist. This report was verified electronically.
--- NOTE | 2018-02-05 11:51 | EKG ---
Date Performed: 02/04/2018 Time Performed: 05:11:12 PTAGE: 67 years EKG: Sinus rhythm Inferior infarct - age undetermined Anterior T wave changes are nonspecific Abnormal ECG PREVIOUS TRACING : 02/03/2018 03.34 DOCTOR: Lisa Conway Interpretating Date/Time 02/05/2018 11:48:05
[2018-02-05] MEDS ORDERED: ACETAMINOPHEN 1000 MG/100 ML 100 ML IV PRN (14:00)
--- NOTE | 2018-02-05 14:07 | PD.CAR.PN ---
CVT Progress Note Subjective/Hospital Course: 67-year-old male, presented to the emergency room with chest pain, acute onset of substernal chest discomfort, apparently admitted last evening after he had an acute onset of substernal chest pain, had a vodka tonic prior to dinner, developed the pain without radiation, associated with some nausea, diaphoresis, took a nitro without much relief. He came into the Emergency Room, received some morphine in addition to the nitro and the symptoms subsided. He was [facility]. The troponins ruled in for non-ST segment MO. Troponins first was 0.02, then 0.97. EKG had some T-wave inversion in the lateral leads. The patient underwent cardiac catheterization this morning that showed an 80% left main, circumflex with 90% stenosis, the obtuse marginal 70%, the RCA 50%, the ejection fraction 60%. The patient had pain throughout the catheterization. An intraaortic balloon pump was placed in the right groin. He was also placed on nitroglycerin drip up to a rate of 50 mcg per hour. We were consulted immediately for left main disease, status post intraaortic balloon pump placement, a non-ST segment MO and ongoing chest pain. PAST MEDICAL HISTORY: Coronary artery disease, prior MO, PCI to the left circ back in 1995, peripheral arterial disease with history of claudication. He had an intervention with a right iliac stent at that time, hyperlipidemia, COPD, tobacco abuse. 02/03 pt underwent emergent CABG x 3, RAMIREZ to LAD - good, SVG to OM1 - good, SVG to OM2 - good, EVH found to have hyperinflated lungs extubated after surgery crystalloid 2500cc, 750cc cell saver, CPB 79min 02/[address] to 1:3 this am given one unit PRBC, slightly confused attempted to sit up in bed with IABP in place Procedure IABP removed right groin, with assistance from Dr Feldman hemostasis obtained after 20 min, + distal pulses, no hematoma started on BB , will add juany noe, unclear of ETOH use keep in ICU for now , will need aggressive pulm toileting addendum 02/04 pt s/o of sudden onset ob bilateral blindness , complete visual loss , emergent stroke alert called then taken to CT scan 02/05 Brain MRI : 1. Numerous small areas of signal abnormality seen in the cerebral and cerebellar hemispheres consistent multiple small areas of infarction. 2. There are a few scattered areas of signal abnormality within the cerebral white matter likely related to small vessel ischemic change. Neck CTA : CONCLUSION: 1. No flow-limiting stenosis or dissection in the carotid or vertebral arteries. 2. Immediate postsurgical features of CABG. pt was seen and evaluated by ophthalmology Dr Crenshaw She describes no evidence of central retinal artery occlusion or retinal hemorrhage, but does describe significantly pale optic disks consistent with ischemic optic neuropathy. pt also seen by Neurology on exam this am , pt now wearing his glasses " I can now see ok , EOM intact PEARLA, peripheral vision intact , still slightly confused will need to avoid narcotics , poor cough effort , needs aggressive pulm toileting , still has some confusion, PT/OT / speech therapy discussed with Dr Grace taylor in CVICU and add scheduled zyprexa dc narcotics, tylenol for pain will need rehab at discharge Subjective: 02/05: patient had recovery of vision overnight. MRI with small punctate ischemic areas suggestive of embolic phenomenon, but none large enough to cause symptoms of bilateral vision loss. Objective: GENERAL: awake , some occasional confusion SKIN: Warm and dry. prevena dressing to chest , incision intact left leg HEAD: Normocephalic. EYES: No scleral icterus. No injection or drainage. NECK: Supple, trachea midline. No JVD or lymphadenopathy. CARDIOVASCULAR: Regular rate and rhythm without murmurs, gallops, or rubs. RESPIRATORY: Breath sounds equal bilaterally. No accessory muscle use. coarse breath sounds, poor cough effort faint wheeze GASTROINTESTINAL: Abdomen soft, non-tender, nondistended. MUSCULOSKELETAL: No cyanosis, or edema. BACK: Nontender without obvious deformity. No CVA tenderness. Vital Signs Date Time Temp Pulse Resp B/P (MAP) Pulse Ox O2 Delivery O2 Flow Rate FiO2 02/05/18 12:29 97.6 91 22 95/51 (66) 95 02/05/18 11:00 93 Venturi Mask 35 02/05/18 09:03 94 Venturi Mask 6.00 35 02/05/18 08:44 91 Nasal Cannula 3.00 02/05/18 08:00 96 Venturi Mask 35 02/05/18 07:00 98.4 123 24 123/84 (97) 93 02/05/18 07:00 93 Nasal Cannula 3.00 02/05/18 03:30 94 Nasal Cannula 3.00 02/05/18 03:00 100.3 110 22 122/70 (87) 94 02/05/18 03:00 107 02/05/18 01:45 22 02/05/18 01:30 114/71 02/05/18 00:35 90 Nasal Cannula 3.00 02/05/18 00:21 98 Nasal Cannula 2.00 02/05/18 00:00 98 Nasal Cannula 4.00 02/04/18 23:00 91 02/04/18 23:00 98.4 93 20 108/57 (74) 98 02/04/18 23:00 108/57 02/04/18 20:54 98 Nasal Cannula 4.00 02/04/18 20:45 100 Nasal Cannula 4.00 02/04/18 19:55 85 81/53 02/04/18 19:30 98.4 111 20 140/84 (102) 96 02/04/18 19:30 98 Nasal Cannula 6.00 02/04/18 19:00 100 02/04/18 15:30 92 Nasal Cannula 3.00 02/04/18 15:30 90 02/04/18 15:30 98.9 100 18 103/53 (70) 92 Labs: Laboratory Tests Test 02/05/18 05:45 White Blood Count 16.7 TH/MM3 (4.0-11.0) Red Blood Count 2.97 MIL/MM3 (4.50-5.90) Hemoglobin 9.0 GM/DL (13.0-17.0) Hematocrit 26.4 % (39.0-51.0) Mean Corpuscular Volume 88.9 FL (80.0-100.0) Mean Corpuscular Hemoglobin 30.4 PG (27.0-34.0) Mean Corpuscular Hemoglobin Concent 34.2 % (32.0-36.0) Red Cell Distribution Width 14.5 % (11.6-17.2) Platelet Count 83 TH/MM3 (150-450) Mean Platelet Volume 8.3 FL (7.0-11.0) Neutrophils (%) (Auto) 77.3 % (16.0-70.0) Lymphocytes (%) (Auto) 11.5 % (9.0-44.0) Monocytes (%) (Auto) 10.7 % (0.0-8.0) Eosinophils (%) (Auto) 0.1 % (0.0-4.0) Basophils (%) (Auto) 0.4 % (0.0-2.0) Neutrophils # (Auto) 12.9 TH/MM3 (1.8-7.7) Lymphocytes # (Auto) 1.9 TH/MM3 (1.0-4.8) Monocytes # (Auto) 1.8 TH/MM3 (0-0.9) Eosinophils # (Auto) 0.0 TH/MM3 (0-0.4) Basophils # (Auto) 0.1 TH/MM3 (0-0.2) CBC Comment AUTO DIFF Differential Comment AUTO DIFF CONFIRMED Platelet Estimate LOW (NORMAL) Platelet Morphology Comment NORMAL (NORMAL) Ovalocytes 1+ (NORMAL) Blood Urea Nitrogen 29 MG/DL (7-18) Creatinine 1.70 MG/DL (0.60-1.30) Random Glucose 101 MG/DL (74-106) Calcium Level 7.7 MG/DL (8.5-10.1) Magnesium Level 2.4 MG/DL (1.5-2.5) Sodium Level 144 MEQ/L (136-145) Potassium Level 4.0 MEQ/L (3.5-5.1) Chloride Level 109 MEQ/L (98-107) Carbon Dioxide Level 27.8 MEQ/L (21.0-32.0) Anion Gap 7 MEQ/L (5-15) Estimat Glomerular Filtration Rate 41 ML/MIN (>89) Result Diagram: 02/05/18 0545 02/05/18 0545 Telemetry: NSR (1) COPD (chronic obstructive pulmonary disease) Plan: symbicort, nebs ezpap acapella (2) CAD (coronary artery disease) Plan: on ASA, stain , BB , start plavix if ok with neuro ok with CCM Dr Edwards (3) Hypertension Plan: po BB (4) Hyperlipemia Plan: on statin (5) S/P CABG (coronary artery bypass graft) Plan: ASA, statin pulm toileting OOB after bedrest completed . eval for HHC at discharge keep in CVICU for now (6) Vision loss, bilateral Plan: resolved, seen by Ophthalmology will need follow up as outpt ? Radha Yin February 05, 2018 14:07
--- NOTE | 2018-02-05 15:49 | HHI.PR ---
Subjective Remarks better today in recliner Objective Vital Signs Date Time Temp Pulse Resp B/P (MAP) Pulse Ox O2 Delivery O2 Flow Rate FiO2 02/05/18 15:23 95 Venturi Mask 35 02/05/18 15:23 98.0 103 20 109/74 (86) 95 02/05/18 12:29 97.6 91 22 95/51 (66) 95 02/05/18 11:00 93 Venturi Mask 35 02/05/18 09:03 94 Venturi Mask 6.00 35 02/05/18 08:44 91 Nasal Cannula 3.00 02/05/18 08:00 96 Venturi Mask 35 02/05/18 07:00 98.4 123 24 123/84 (97) 93 02/05/18 07:00 93 Nasal Cannula 3.00 02/05/18 03:30 94 Nasal Cannula 3.00 02/05/18 03:00 100.3 110 22 122/70 (87) 94 02/05/18 03:00 107 02/05/18 01:45 22 02/05/18 01:30 114/71 02/05/18 00:35 90 Nasal Cannula 3.00 02/05/18 00:21 98 Nasal Cannula 2.00 02/05/18 00:00 98 Nasal Cannula 4.00 02/04/18 23:00 91 02/04/18 23:00 98.4 93 20 108/57 (74) 98 02/04/18 23:00 108/57 02/04/18 20:54 98 Nasal Cannula 4.00 02/04/18 20:45 100 Nasal Cannula 4.00 02/04/18 19:55 85 81/53 02/04/18 19:30 98.4 111 20 140/84 (102) 96 02/04/18 19:30 98 Nasal Cannula 6.00 02/04/18 19:00 100 I/O 02/04/18 02/04/18 02/04/18 02/05/18 02/05/18 02/05/18 07:00 15:00 23:00 07:00 15:00 23:00 Intake Total 1223 ml 550 ml 900 ml 406 ml Output Total 2105 ml 1010 ml 400 ml Balance -882 ml 550 ml -110 ml 6 ml Intake Oral 150 ml 600 ml 240 ml IV Total 1073 ml 100 ml 300 ml 166 ml Packed Cells 400 ml Blood Product IV Normal Saline Flush 50 ml Output Urine Total 1125 ml 700 ml 260 ml Chest Tube Drainage Total 980 ml 310 ml 140 ml # Voids 4 # Bowel Movements 0 0 0 Result Diagram: 02/05/1845 02/05/18544 Imaging mri # sm acute infarcts b/l-?embolic Objective Remarks awake alert fluent perrla can see and name objects motor intact fnf slow not dysmetric gait per PT. Assessment and Plan Assessment and Plan mutiinfarcts-small bilaterally?embolic pod#2 cabg plavix ok anticoag if a fib seen' now in Sinus tach. pt-ot. d/c rehab. Aileen Beltrán MD February 05, 2018 15:49
[2018-02-05] MEDS: OLANZapine 2.5 MG TAB PO SCH (16:27)
[2018-02-05] MEDS: SODIUM CHLORIDE 0.9% FLUSH 10 ML FLUSH IV FLUSH SCH ×2 (16:30→20:17)
--- NOTE | 2018-02-05 17:02 | ECHRPT ---
Indication: CHEST PAIN CONCLUSIONS Normal left ventricular size. Wall thickness is normal. The left ventricular systolic function is low normal with an estimated ejection fraction in the rang e of 50- 55%. The right ventricle is mildly dilated. The right ventricular systoilc function is normal. There is trace tricuspid valve regurgitation. The pulmonary valve is not well visualized. BP: / HR: Rhythm: MEASUREMENTS (Male / Female) Normal Values Technical Quality: 2D ECHO LV Diastolic Diameter PLAX 4.8 cm 4.2 - 5.9 / 3.9 - 5.3 cm LV Systolic Diameter PLAX 4.0 cm IVS Diastolic Thickness 0.9 cm 0.6 - 1.0 / 0.6 - 0.9 cm LVPW Diastolic Thickness 0.6 cm 0.6 - 1.0 / 0.6 - 0.9 cm LV Relative Wall Thickness 0.3 RV Internal Dim ED PLAX 2.3 cm DOPPLER Mitral E Point Velocity 73.5 cm/s Mitral A Point Velocity 74.5 cm/s Mitral E to A Ratio 1.0 TR Peak Velocity 221.0 cm/s TR Peak Gradient 19.5 mmHg FINDINGS LEFT VENTRICLE Normal left ventricular size. Wall thickness is normal. The left ventricular systolic function is low normal with an estimated ejection fraction in the rang e of 50- 55%. RIGHT VENTRICLE The right ventricle is mildly dilated. The right ventricular systoilc function is normal. LEFT ATRIUM The left atrial size is normal. RIGHT ATRIUM The right atrial size is normal. ATRIAL SEPTUM Normal atrial septal thickness without atrial level shunting by limited color doppler interrogation. AORTA The aortic root and proximal ascending aorta are normal in size on limited imaging. MITRAL VALVE Structurally normal mitral valve. No mitral valve stenosis or regurgitation. AORTIC VALVE Trileaflet aortic valve. No aortic valve stenosis or regurgitation. TRICUSPID VALVE There is trace tricuspid valve regurgitation. PULMONARY VALVE The pulmonary valve is not well visualized. VESSELS The inferior vena cava is normal in size. PERICARDIUM No pericardial effusion. Brigido Taylor MD, FACC (Electronically Signed) Final Date:05 Feb 2018 17:01
[2018-02-05] MEDS: METOPROLOL TARTRATE 25 MG TAB PO SCH (20:11)
[2018-02-05] MEDS: OLANZapine 5 MG TAB PO SCH (20:13)
[2018-02-05] MEDS: SENNOSIDES 8.6 MG TAB PO SCH (20:13)
[2018-02-05] MEDS: ATORVASTATIN 40 MG TAB PO SCH (20:13)
[2018-02-05 21:47] LABS: HEMATOCRIT 25.7 % (39.0-51.0); HEMOGLOBIN 8.6 GM/DL (13.0-17.0)
[2018-02-06] VITALS (21 sets, daily range): BP systolic 115–191; BP diastolic 63–83; PULSE 76–98; RESP 16–20; TEMP 97.7–99.2; O2SAT 94–100
[2018-02-06] MEDS: LORazepam 2 MG/ML VIAL IV PRN ×3 (01:35→23:01)
[2018-02-06] MEDS: RESP: ALBUTEROL 2.5 MG/IPRATROPIUM 0.5 MG NEB (PRN) NEB (02:47)
[2018-02-06 05:32] LABS: AUTOMATED NEUTROPHIL # 12.2 TH/MM3 (1.8-7.7); BASOPHIL % 0.2 % (0.0-2.0); EOSINOPHIL % 0.2 % (0.0-4.0); HEMATOCRIT 24.2 % (39.0-51.0); HEMOGLOBIN 8.1 GM/DL (13.0-17.0); LYMPHOCYTE # 1.4 TH/MM3 (1.0-4.8); MEAN CELL VOLUME 90.3 FL (80.0-100.0); MEAN CORPUSCULAR HEMOGLOBIN 30.3 PG (27.0-34.0); MEAN CORPUSCULAR HGB CONC 33.5 % (32.0-36.0); MONO % 11.6 % (0.0-8.0); MONOCYTE # 1.8 TH/MM3 (0-0.9); PLATELET COUNT 80 TH/MM3 (150-450); RED BLOOD COUNT 2.68 MIL/MM3 (4.50-5.90); RED CELL DISTRIBUTION WIDTH 14.2 % (11.6-17.2); WHITE BLOOD COUNT 15.4 TH/MM3 (4.0-11.0)
[2018-02-06 05:56] LABS: ALBUMIN 2.7 GM/DL (3.4-5.0); ALT (GPT) 39 U/L (12-78); AST (GOT) 121 U/L (15-37); BICARBONATE 26.5 MEQ/L (21.0-32.0); BLOOD UREA NITROGEN 40 MG/DL (7-18); CALCIUM 7.8 MG/DL (8.5-10.1); CHLORIDE 105 MEQ/L (98-107); CREATININE 1.66 MG/DL (0.60-1.30); GLOMERULAR FILTRATION RATE 42 ML/MIN (>89); GLUCOSE,RANDOM 103 MG/DL (74-106); MAGNESIUM 2.3 MG/DL (1.5-2.5); PHOSPHORUS 3.8 MG/DL (2.5-4.9); SODIUM (NA) 142 MEQ/L (136-145)
[2018-02-06] MEDS ORDERED: SOD PHOSPHATE/SOD BIPHOSPHATE (ADULT) ENEMA 133ML RECTAL PRN (06:00)
[2018-02-06 06:16] LABS: ALKALINE PHOSPHATASE 53 U/L (45-117); TOTAL BILIRUBIN ADULT 1.1 MG/DL (0.2-1.0); TOTAL PROTEIN 5.3 GM/DL (6.4-8.2)
--- NOTE | 2018-02-06 06:50 | HHI.CCPN ---
Subjective Remarks/Hospital Course This is a 67-year-old male who presented the emergency department with acute onset substernal chest pain and was found to have an 80% left main lesion and an active NSTEMI. He was taken for emergent left heart catheterization. Intra- arterial balloon pump was placed, but the patient's chest pain was not relieved despite mechanical support and nitroglycerin. The patient was then taken for emergent on pump coronary artery bypass grafting. His postoperative course was complicated by chest tube output which was approximately 750 cc. His hemoglobin did drop to 8.9 this AM for which he received 1 unit prbc. He was extubated on pathway overnight. This afternoon, he complained of new and sudden onset bilateral visual loss. He denies eye pain, photophobia, double vision, blurry vision. He endorses complete visual loss. He does state that he can see some light. Emergent stroke alert was called and the patient was taken down to noncontrasted head CT which was negative for acute bleed. This was followed by CTA head and neck which was negative for large vessel thrombus. In specific, excellent visualization of the posterior circulation as well as patent visualization of the bilateral ophthalmic arteries. I called ophthalmology who came immediately to the bedside to evaluate the patient. She describes no evidence of central retinal artery occlusion or retinal hemorrhage , but does describe significantly pale optic disks consistent with ischemic optic neuropathy. After this, an attempt was made to travel to MRI, but the patient became severely agitated and delirious we were unable to obtain MRI. At this point, I performed conscious sedation in order to obtain the emergent MRI, and a second attempt was successful to obtain the MRI. 02/05: patient had recovery of vision overnight. MRI with small punctate ischemic areas suggestive of embolic phenomenon, but none large enough to cause symptoms of bilateral vision loss. Subjective: 02/06: Very confused overnight. Received lorazepam 1 mg 1 for florid DTs/ alcohol withdrawal. Remains tachycardic. Very agitated.. Objective Vital Signs Date Time Temp Pulse Resp B/P (MAP) Pulse Ox O2 Delivery O2 Flow Rate FiO2 02/06/18 03:00 82 02/06/18 03:00 98.4 18 120/69 (86) 98 02/06/18 03:00 Nasal Cannula 4.00 02/05/18 15:23 35 Intake and Output 02/06/18 02/06/18 02/07/18 08:00 16:00 00:00 Intake Total 490 ml Output Total 1050 ml Balance -560 ml Result Diagram: 02/06/1842902/06/18 043 Imaging Last Impressions Chest X-Ray 02/05/18 0000 Signed Impressions: Service Date/Time: Monday, February 05, 2018 10:21 - CONCLUSION: Left basilar airspace disease. Garrick Castle MD Neck CTA 02/04/18 0000 Signed Impressions: Service Date/Time: January 15:06 - CONCLUSION: 1. No flow-limiting stenosis or dissection in the carotid or vertebral arteries. 2. Immediate postsurgical features of CABG. Gonzalo Jean MD Head CTA 02/04/18 0000 Signed Impressions: Service Date/Time: January 15:06 - CONCLUSION: 1. Unremarkable head CTA. No evidence for large vessel occlusion. Gonzalo Jean MD Head CT 02/04/18 0000 Signed Impressions: Service Date/Time: January 14:51 - CONCLUSION: Normal examination for a patient of this age. Ortiz Carmona MD Brain MRI 02/04/18 0000 Signed Impressions: Service Date/Time: January 20:16 - CONCLUSION: 1. Numerous small areas of signal abnormality seen in the cerebral and cerebellar hemispheres consistent multiple small areas of infarction. 2. There are a few scattered areas of signal abnormality within the cerebral white matter likely related to small vessel ischemic change. Tommie Swain MD Objective Remarks GENERAL: Middle-age appearing male, lying in bed, extremely agitated and trying to get out of bed HEENT: Normocephalic. Atraumatic. Pupils are2 mm, reactive to 1 mm. Extraocular muscles are intact. visual acuity appears to be intact, and he can see clearly to read accurately with bilateral eyes. Mucous membranes are moist and pink. Oropharynx without erythema or exudates NECK: Trachea is midline. There is no JVD. CHEST: Left subclavian introducer sheath is clean and dry with a dressing intact. Patient is on nasal cannula oxygen. Equal chest rise. Chest tubes exit subxiphoid with minimal serosanguinous output. No air leak. CARDIOVASCULAR: Tachycardic rate, regular rhythm. Median sternotomy incision is clean, dry, a wound VAC dressing is in place. ABDOMEN: Soft, nontender, nondistended. No guarding. MUSCULOSKELETAL: Pulses 2+. No peripheral edema. NEUROLOGICAL: Moves all 4 extremities equally. Strength appears equal symmetric. Follows commands in all 4 extremities. Urinary Catheter: No Assessment to: Continue Vascular Central Line Catheter: Yes Assessment to: Continue Date of Insertion: February 03, 2018 Line: Central Venous Catheter Side: Left Location: Subclavian A/P Assessment and Plan Neuro/Psych: Alcohol abuse consumes greater than 750 cc vodka daily Florid DTs Agitated delirium Bilateral visual field loss- resolved Ischemic optic neuropathy- appears improved. Postoperative visual loss- resolve Chronic benzodiazepine use Acetaminophen 650 mg p.o. every 6 hours fever/pain 1 through 5 with Ofirmev as needed Currently on olanzapine 2.5 mg twice daily and 5 mg at night for agitation per CT surgery On alprazolam 0.5 mg every 8 hours at home On lorazepam 1 mg IV every 3 hours as needed per Dr. Cardona. He is managing. Thiamine 100 mg p.o. daily Monitor for DTs CV: Postop day #3 CABG RAMIREZ to LAD, SVG to OM 1/oh M2 with EVH Hypertension/essential Hyperlipidemia Continue amiodarone 400 mg p.o. every [address] surgery Continue metoprolol tartrate 25 mg p.o. twice daily Continue aspirin 81 mg daily and clopidogrel 75 mg daily Ezetimibe 10 mg p.o. daily with atorvastatin 40 mg for dyslipidemia. On rosuvastatin 20 mg daily at home 2D echocardiogram revealed normal left ventricular size. Wall thickness is normal. The left ventricular systolic function is low normal with an estimated ejection fraction in the range of 50- 55%. The right ventricle is mildly dilated. Resp: Acute respiratory insufficiency secondary to agitation Severe COPD Nasal cannula currently at 4 L. Saturations 99% The patient extremely agitated respirations in the 40s. Columns down respirations 16 and appears comfortable Incentive spirometry while awake Continue budesonide/formoterol 80/4.5 1 puff twice daily/home medication. Patient is on pro-air every 6 hours at home Albuterol/ipratropium aerosols every 6 hours while awake and every 2 hours as needed dyspnea Chest tube currently at -20 cm H2O GI: Heart healthy diet Pantoprazole for GI prophylaxis Docusate sodium 1 tablet twice daily senna 8.6 mg at night and polyethylene glycol 17 g daily for bowel regimen : Bundy catheter has been discontinued Endo: Euglycemia ASPART sliding scale insulin q. before meals and at bedtime to maintain euglycemia Renal: Creatinine currently within normal limits Monitor urine output Accurate I's and O's Heme: Leukocytosis Normocytic anemia Thrombocytopenia Transfuse to keep hemoglobin greater than equal to [address] surgery No signs of active bleeding Transfused 1 PRBCs and 1 pheresed platelets ID: Monitor for signs and sequelae of infection FEN: Replace electrolytes as clinically indicated MSK: PT evaluate and treat Access -Left subclavian introducer with dual-lumen catheter day #3 placed 02/04 Prophylaxis -GI -pantoprazole -DVT -OSCAR hoses/pharmacological prophylaxis when okay with surgery Level 1 follow-up Garcia Ravi MD February 06, 2018 06:50
[2018-02-06] MEDS: PANTOPRAZOLE SOD 40 MG DELAYED RELEASE TAB PO SCH (07:13)
[2018-02-06] MEDS: RESP: ALBUTEROL 2.5 MG/IPRATROPIUM 0.5 MG NEB (SCH) NEB ×3 (07:40→20:24)
[2018-02-06] MEDS: INSULIN ASPART SUPPLEMENTAL SCALE SQ SCH ×4 (08:00→21:00)
[2018-02-06] MEDS: DOCUSATE SODIUM 100 MG CAP PO SCH ×2 (08:58→21:56)
[2018-02-06] MEDS: AMIODARONE 200 MG TAB PO SCH ×2 (08:59→21:56)
[2018-02-06] MEDS: FOLIC ACID 1 MG TAB PO SCH (09:00)
[2018-02-06] MEDS: MULTIVITAMINS/MINERALS THERAPEUTIC TAB PO SCH (09:00)
[2018-02-06] MEDS: ASPIRIN 81 MG CHEW TAB PO SCH (09:00)
[2018-02-06] MEDS: SODIUM CHLORIDE 0.9% FLUSH 10 ML FLUSH IV FLUSH SCH ×2 (09:01→21:00)
[2018-02-06] MEDS: POLYETHYLENE GLYCOL 17 GM PKG PO SCH (09:01)
[2018-02-06] MEDS: THIAMINE HCL 100 MG TAB PO SCH (09:01)
[2018-02-06] MEDS: EZETIMIBE 10 MG TAB PO SCH (09:01)
[2018-02-06] MEDS: METOPROLOL TARTRATE 25 MG TAB PO SCH ×2 (09:01→21:56)
[2018-02-06] MEDS: BUDESONIDE-FORMOTEROL 80/4.5 MCG INHALER INH SCH ×2 (09:02→21:55)
[2018-02-06] MEDS ORDERED: SODIUM CHLOR 0.9% 250 ML INJ 250 ML IV ONE (11:00)
--- NOTE | 2018-02-06 11:01 | PD.CAR.PN ---
CVT Progress Note CVT: POD #: 3 Subjective/Hospital Course: 67-year-old male, presented to the emergency room with chest pain, acute onset of substernal chest discomfort, apparently admitted last evening after he had an acute onset of substernal chest pain, had a vodka tonic prior to dinner, developed the pain without radiation, associated with some nausea, diaphoresis, took a nitro without much relief. He came into the Emergency Room, received some morphine in addition to the nitro and the symptoms subsided. He was [facility]. The troponins ruled in for non-ST segment ME. Troponins first was 0.02, then 0.97. EKG had some T-wave inversion in the lateral leads. The patient underwent cardiac catheterization this morning that showed an 80% left main, circumflex with 90% stenosis, the obtuse marginal 70%, the RCA 50%, the ejection fraction 60%. The patient had pain throughout the catheterization. An intraaortic balloon pump was placed in the right groin. He was also placed on nitroglycerin drip up to a rate of 50 mcg per hour. We were consulted immediately for left main disease, status post intraaortic balloon pump placement, a non-ST segment ME and ongoing chest pain. PAST MEDICAL HISTORY: Coronary artery disease, prior ME, PCI to the left circ back in 1995, peripheral arterial disease with history of claudication. He had an intervention with a right iliac stent at that time, hyperlipidemia, COPD, tobacco abuse. 02/03 pt underwent emergent CABG x 3, RAMIREZ to LAD - good, SVG to OM1 - good, SVG to OM2 - good, EVH found to have hyperinflated lungs extubated after surgery crystalloid 2500cc, 750cc cell saver, CPB 79min 02/[address] to 1:3 this am given one unit PRBC, slightly confused attempted to sit up in bed with IABP in place Procedure IABP removed right groin, with assistance from Dr Feldman hemostasis obtained after 20 min, + distal pulses, no hematoma started on BB , will add juany kusum, unclear of ETOH use keep in ICU for now , will need aggressive pulm toileting addendum 02/04 pt s/o of sudden onset ob bilateral blindness , complete visual loss , emergent stroke alert called then taken to CT scan 02/05 Brain MRI : 1. Numerous small areas of signal abnormality seen in the cerebral and cerebellar hemispheres consistent multiple small areas of infarction. 2. There are a few scattered areas of signal abnormality within the cerebral white matter likely related to small vessel ischemic change. Neck CTA : CONCLUSION: 1. No flow-limiting stenosis or dissection in the carotid or vertebral arteries. 2. Immediate postsurgical features of CABG. pt was seen and evaluated by ophthalmology Dr Crenshaw She describes no evidence of central retinal artery occlusion or retinal hemorrhage, but does describe significantly pale optic disks consistent with ischemic optic neuropathy. pt also seen by Neurology on exam this am , pt now wearing his glasses " I can now see ok , EOM intact PEARLA, peripheral vision intact , still slightly confused will need to avoid narcotics , poor cough effort , needs aggressive pulm toileting , still has some confusion, PT/OT / speech therapy discussed with Dr Grace taylor in CVICU and add scheduled zyprexa dc narcotics, tylenol for pain will need rehab at discharge Subjective: 02/05: patient had recovery of vision overnight. MRI with small punctate ischemic areas suggestive of embolic phenomenon, but none large enough to cause symptoms of bilateral vision loss. 02/06/18 c/o dyspnea, anemic O and A x 3 Objective: Vital Signs Date Time Temp Pulse Resp B/P (MAP) Pulse Ox O2 Delivery O2 Flow Rate FiO2 02/06/18 07:41 94 Nasal Cannula 5.00 02/06/18 03:00 82 02/06/18 03:00 98.4 82 18 120/69 (86) 98 02/06/18 03:00 99 Nasal Cannula 4.00 02/05/18 23:00 94 Nasal Cannula 4.00 02/05/18 23:00 93 02/05/18 23:00 98.1 93 16 100/58 (72) 94 02/05/18 20:45 96 Nasal Cannula 3.00 02/05/18 19:00 93 Nasal Cannula 4.00 02/05/18 19:00 104 02/05/18 19:00 98.1 104 16 116/69 (85) 94 02/05/18 16:26 93 Nasal Cannula 3.00 02/05/18 15:23 95 Venturi Mask 35 02/05/18 15:23 98.0 103 20 109/74 (86) 95 02/05/18 15:00 103 02/05/18 12:29 97.6 91 22 95/51 (66) 95 02/05/18 11:00 93 Venturi Mask 35 Labs: Laboratory Tests Test 02/06/18 04:30 White Blood Count 15.4 TH/MM3 (4.0-11.0) Red Blood Count 2.68 MIL/MM3 (4.50-5.90) Hemoglobin 8.1 GM/DL (13.0-17.0) Hematocrit 24.2 % (39.0-51.0) Mean Corpuscular Volume 90.3 FL (80.0-100.0) Mean Corpuscular Hemoglobin 30.3 PG (27.0-34.0) Mean Corpuscular Hemoglobin Concent 33.5 % (32.0-36.0) Red Cell Distribution Width 14.2 % (11.6-17.2) Platelet Count 80 TH/MM3 (150-450) Mean Platelet Volume 9.0 FL (7.0-11.0) Neutrophils (%) (Auto) 79.0 % (16.0-70.0) Lymphocytes (%) (Auto) 9.0 % (9.0-44.0) Monocytes (%) (Auto) 11.6 % (0.0-8.0) Eosinophils (%) (Auto) 0.2 % (0.0-4.0) Basophils (%) (Auto) 0.2 % (0.0-2.0) Neutrophils # (Auto) 12.2 TH/MM3 (1.8-7.7) Lymphocytes # (Auto) 1.4 TH/MM3 (1.0-4.8) Monocytes # (Auto) 1.8 TH/MM3 (0-0.9) Eosinophils # (Auto) 0.0 TH/MM3 (0-0.4) Basophils # (Auto) 0.0 TH/MM3 (0-0.2) CBC Comment AUTO DIFF Differential Comment AUTO DIFF CONFIRMED Platelet Estimate LOW (NORMAL) Platelet Morphology Comment NORMAL (NORMAL) Red Cell Morphology Comment NORMAL (NORMAL) Blood Urea Nitrogen 40 MG/DL (7-18) Creatinine 1.66 MG/DL (0.60-1.30) Random Glucose 103 MG/DL (74-106) Total Protein 5.3 GM/DL (6.4-8.2) Albumin 2.7 GM/DL (3.4-5.0) Calcium Level 7.8 MG/DL (8.5-10.1) Phosphorus Level 3.8 MG/DL (2.5-4.9) Magnesium Level 2.3 MG/DL (1.5-2.5) Alkaline Phosphatase 53 U/L (45-117) Aspartate Amino Transf (AST/SGOT) 121 U/L (15-37) Alanine Aminotransferase (ALT/SGPT) 39 U/L (12-78) Total Bilirubin 1.1 MG/DL (0.2-1.0) Sodium Level 142 MEQ/L (136-145) Potassium Level 3.9 MEQ/L (3.5-5.1) Chloride Level 105 MEQ/L (98-107) Carbon Dioxide Level 26.5 MEQ/L (21.0-32.0) Anion Gap 11 MEQ/L (5-15) Estimat Glomerular Filtration Rate 42 ML/MIN (>89) Result Diagram: 02/06/1842902/06/18429 Cardiovascular: RRR Telemetry: ST Pulmonary: Few crackles bilat GI/: NABS Incision: dry and intact CT: 180ml/24 hrs Plan: Transfuse 2 units pRBC Diurese Encourage ambulation Transfer to stepdown after transfusion Encourage PO intake Stim BM CBC, BMP, CXR in AM Wean O2 (1) COPD (chronic obstructive pulmonary disease) Plan: symbicort, nebs ezpap acapella (2) CAD (coronary artery disease) Plan: on ASA, stain , BB , start plavix if ok with neuro ok with CCM Dr Edwards (3) Hypertension Plan: po BB (4) Hyperlipemia Plan: on statin (5) S/P CABG (coronary artery bypass graft) Plan: ASA, statin pulm toileting OOB after bedrest completed . eval for HHC at discharge keep in CVICU for now (6) Vision loss, bilateral Plan: resolved, seen by Ophthalmology will need follow up as outpt ? Monica Cordero MD February 06, 2018 11:00
[2018-02-06] MEDS ORDERED: BISACODYL 10 MG SUPP RECTAL PRN (11:15)
[2018-02-06] MEDS ORDERED: GLUCAGON 1 MG/ML VIAL OTHER PRN (11:15)
[2018-02-06] MEDS ORDERED: DEXTROSE 50% IN WATER 50 ML VIAL(D50) IV PUSH PRN (11:15)
[2018-02-06] MEDS ORDERED: FUROSEMIDE 40 MG/4 ML VIAL IV PUSH ONE (11:30)
[2018-02-06] MEDS: CLOPIDOGREL 75 MG TAB PO SCH (11:30)
[2018-02-06] MEDS: OLANZapine 2.5 MG TAB PO SCH ×2 (12:28→14:21)
[2018-02-06] MEDS: MUPIROCIN 2% OINT 1 APPLIC/GM SYR EACH NARE SCH ×2 (12:29→21:55)
[2018-02-06] MEDS ORDERED: INSULIN ASPART SUPPLEMENTAL SCALE SQ SCH (14:00)
--- NOTE | 2018-02-06 14:25 | EKG ---
Date Performed: 02/04/2018 Time Performed: 14:43:23 PTAGE: 67 years EKG: Sinus rhythm POSSIBLE INFERIOR MYOCARDIAL INFARCTION , PROBABLY OLD WITH POSTERIOR EXTENSION BORDERLINE ECG INTER PRETATION BASED ON A DEFAULT AGE OF 40 YEARS PREVIOUS TRACING : 02/04/2018 05.11 Since the previous tracing, no significant change not ed DOCTOR: Jae Rogers Interpretating Date/Time 02/06/2018 14:23:36
[2018-02-06] MEDS: OLANZapine 5 MG TAB PO SCH (21:00)
[2018-02-06] MEDS: SENNOSIDES 8.6 MG TAB PO SCH (21:56)
[2018-02-06] MEDS: ATORVASTATIN 40 MG TAB PO SCH (21:56)
[2018-02-07] VITALS (25 sets, daily range): BP systolic 119–168; BP diastolic 70–88; PULSE 80–110; RESP 18–22; TEMP 98.1–99.7; O2SAT 93–99
[2018-02-07] MEDS: RESP: ALBUTEROL 2.5 MG/IPRATROPIUM 0.5 MG NEB (PRN) NEB (00:35)
[2018-02-07] MEDS: LORazepam 2 MG/ML VIAL IV PRN ×2 (02:00→05:02)
[2018-02-07 04:52] LABS: BICARBONATE 29.5 MEQ/L (21.0-32.0); CALCIUM 7.7 MG/DL (8.5-10.1); CREATININE 1.35 MG/DL (0.60-1.30); MAGNESIUM 2.3 MG/DL (1.5-2.5)
[2018-02-07] MEDS: PANTOPRAZOLE SOD 40 MG DELAYED RELEASE TAB PO SCH (05:37)
[2018-02-07 06:38] LABS: AUTOMATED NEUTROPHIL # 11.4 TH/MM3 (1.8-7.7); BASOPHIL % 0.2 % (0.0-2.0); EOSINOPHIL # 0.1 TH/MM3 (0-0.4); EOSINOPHIL % 0.8 % (0.0-4.0); HEMATOCRIT 30.3 % (39.0-51.0); HEMOGLOBIN 10.3 GM/DL (13.0-17.0); LYMPH % 7.7 % (9.0-44.0); LYMPHOCYTE # 1.1 TH/MM3 (1.0-4.8); MEAN CELL VOLUME 89.7 FL (80.0-100.0); MEAN CORPUSCULAR HEMOGLOBIN 30.4 PG (27.0-34.0); MEAN CORPUSCULAR HGB CONC 33.9 % (32.0-36.0); MEAN PLATELET VOLUME 9.2 FL (7.0-11.0); MONO % 12.4 % (0.0-8.0); MONOCYTE # 1.8 TH/MM3 (0-0.9); NEUT % 78.9 % (16.0-70.0); PLATELET COUNT 90 TH/MM3 (150-450); RED BLOOD COUNT 3.37 MIL/MM3 (4.50-5.90); RED CELL DISTRIBUTION WIDTH 14.1 % (11.6-17.2); WHITE BLOOD COUNT 14.4 TH/MM3 (4.0-11.0)
[2018-02-07] MEDS: INSULIN ASPART SUPPLEMENTAL SCALE SQ SCH ×4 (08:00→20:54)
[2018-02-07] MEDS: POLYETHYLENE GLYCOL 17 GM PKG PO SCH (08:11)
[2018-02-07] MEDS: MAGNESIUM HYDROXIDE SUSP 30 ML CUP PO SCH (08:11)
[2018-02-07] MEDS: BUDESONIDE-FORMOTEROL 80/4.5 MCG INHALER INH SCH ×2 (08:11→20:52)
[2018-02-07] MEDS: THIAMINE HCL 100 MG TAB PO SCH (08:12)
[2018-02-07] MEDS: OLANZapine 2.5 MG TAB PO SCH ×2 (08:12→13:31)
[2018-02-07] MEDS: CLOPIDOGREL 75 MG TAB PO SCH (08:12)
[2018-02-07] MEDS: AMIODARONE 200 MG TAB PO SCH ×2 (08:12→20:53)
[2018-02-07] MEDS: FOLIC ACID 1 MG TAB PO SCH (08:12)
[2018-02-07] MEDS: MULTIVITAMINS/MINERALS THERAPEUTIC TAB PO SCH (08:12)
[2018-02-07] MEDS: DOCUSATE SODIUM 100 MG CAP PO SCH ×2 (08:12→21:00)
[2018-02-07] MEDS: EZETIMIBE 10 MG TAB PO SCH (08:12)
[2018-02-07] MEDS: MUPIROCIN 2% OINT 1 APPLIC/GM SYR EACH NARE SCH ×2 (08:13→20:54)
[2018-02-07] MEDS: ASPIRIN 81 MG CHEW TAB PO SCH (08:13)
[2018-02-07] MEDS: SODIUM CHLORIDE 0.9% FLUSH 10 ML FLUSH IV FLUSH SCH ×2 (08:13→20:54)
[2018-02-07] MEDS: RESP: ALBUTEROL 2.5 MG/IPRATROPIUM 0.5 MG NEB (SCH) NEB ×3 (08:19→21:05)
--- NOTE | 2018-02-07 08:59 | RADRPT ---
EXAM DATE/TIME: 02/07/2018 07:52 [facility] COMPARISON: CHEST SINGLE AP, February 05, 2018, 10:21. INDICATIONS : Pneumothorax. MEDICAL HISTORY : Chronic obstructive pulmonary disease. Cardiovascular disease. Hypertension. SURGICAL HISTORY : CABG. ENCOUNTER: Subsequent ACUITY: 4 - 6 days PAIN SCORE: 5/10 LOCATION: Bilateral chest FINDINGS: A single view of the chest demonstrates the lungs to be symmetrically aerated without evidence of mas s, infiltrate or effusion. Interval removal of left central line, mediastinal drain, and left chest tube or No evidence of pneumothorax. The cardiomediastinal contours are unremarkable. Osseous struc tures are intact. Prior median sternotomy with intact sternal wire sutures. CONCLUSION: The lungs are clear. No evidence of pneumothorax. Ralph Orozco MD on February 07, 2018 at 8:56 Board Certified Radiologist. This report was verified electronically.
[2018-02-07] MEDS: METOPROLOL TARTRATE 25 MG TAB PO SCH ×2 (09:00→20:53)
--- NOTE | 2018-02-07 10:38 | PD.CAR.PN ---
CVT Progress Note CVT: POD #: 4 Subjective/Hospital Course: 67-year-old male, presented to the emergency room with chest pain, acute onset of substernal chest discomfort, apparently admitted last evening after he had an acute onset of substernal chest pain, had a vodka tonic prior to dinner, developed the pain without radiation, associated with some nausea, diaphoresis, took a nitro without much relief. He came into the Emergency Room, received some morphine in addition to the nitro and the symptoms subsided. He was admitted to the [facility]. The troponins ruled in for non-ST segment MD. Troponins first was 0.02, then 0.97. EKG had some T-wave inversion in the lateral leads. The patient underwent cardiac catheterization this morning that showed an 80% left main, circumflex with 90% stenosis, the obtuse marginal 70%, the RCA 50%, the ejection fraction 60%. The patient had pain throughout the catheterization. An intraaortic balloon pump was placed in the right groin. He was also placed on nitroglycerin drip up to a rate of 50 mcg per hour. We were consulted immediately for left main disease, status post intraaortic balloon pump placement, a non-ST segment MD and ongoing chest pain. PAST MEDICAL HISTORY: Coronary artery disease, prior MD, PCI to the left circ back in 1995, peripheral arterial disease with history of claudication. He had an intervention with a right iliac stent at that time, hyperlipidemia, COPD, tobacco abuse. 02/03 pt underwent emergent CABG x 3, RAMIREZ to LAD - good, SVG to OM1 - good, SVG to OM2 - good, EVH found to have hyperinflated lungs extubated after surgery crystalloid 2500cc, 750cc cell saver, CPB 79min 02/[address] to 1:3 this am given one unit PRBC, slightly confused attempted to sit up in bed with IABP in place Procedure IABP removed right groin, with assistance from Dr Feldman hemostasis obtained after 20 min, + distal pulses, no hematoma started on BB , will add juany kusum, unclear of ETOH use keep in ICU for now , will need aggressive pulm toileting addendum 02/04 pt s/o of sudden onset ob bilateral blindness , complete visual loss , emergent stroke alert called then taken to CT scan 02/05 Brain MRI : 1. Numerous small areas of signal abnormality seen in the cerebral and cerebellar hemispheres consistent multiple small areas of infarction. 2. There are a few scattered areas of signal abnormality within the cerebral white matter likely related to small vessel ischemic change. Neck CTA : CONCLUSION: 1. No flow-limiting stenosis or dissection in the carotid or vertebral arteries. 2. Immediate postsurgical features of CABG. pt was seen and evaluated by ophthalmology Dr Crenshaw She describes no evidence of central retinal artery occlusion or retinal hemorrhage, but does describe significantly pale optic disks consistent with ischemic optic neuropathy. pt also seen by Neurology on exam this am , pt now wearing his glasses " I can now see ok , EOM intact PEARLA, peripheral vision intact , still slightly confused will need to avoid narcotics , poor cough effort , needs aggressive pulm toileting , still has some confusion, PT/OT / speech therapy discussed with Dr Grace taylor in CVICU and add scheduled zyprexa dc narcotics, tylenol for pain will need rehab at discharge Subjective: 02/05: patient had recovery of vision overnight. MRI with small punctate ischemic areas suggestive of embolic phenomenon, but none large enough to cause symptoms of bilateral vision loss. 02/06/18 c/o dyspnea, anemic O and A x 3 02/07/18 Doing well this morning, oriented and alert x 3. continues to demonstrate some confusion at night and is a fall risk Objective: Vital Signs Date Time Temp Pulse Resp B/P (MAP) Pulse Ox O2 Delivery O2 Flow Rate FiO2 02/07/18 10:03 88 02/07/18 09:04 92 02/07/18 08:20 Nasal Cannula 3.00 02/07/18 08:00 90 02/07/18 07:00 98.1 92 22 159/85 (109) 99 02/07/18 07:00 90 02/07/18 07:00 99 Nasal Cannula 3.00 02/07/18 06:24 100 02/07/18 05:14 85 02/07/18 05:12 94 Nasal Cannula 2.00 02/07/18 05:11 98.5 87 168/88 (114) 94 02/07/18 04:00 80 02/07/18 03:00 84 02/07/18 02:00 88 02/07/18 01:00 110 02/07/18 00:00 96 02/06/18 23:00 98 Nasal Cannula 2.00 02/06/18 23:00 98 02/06/18 23:00 97.8 85 148/83 (104) 98 02/06/18 22:00 98 02/06/18 21:00 96 02/06/18 20:25 98 Nasal Cannula 3.00 02/06/18 20:00 94 02/06/18 19:00 86 02/06/18 19:00 95 Nasal Cannula 3.00 02/06/18 19:00 99.2 96 191/83 (119) 95 02/06/18 18:05 82 02/06/18 17:26 97.7 18 145/70 97 02/06/18 17:06 81 02/06/18 16:27 84 02/06/18 16:27 18 02/06/18 15:45 98.6 78 18 115/63 (80) 100 02/06/18 15:45 84 02/06/18 15:45 100 Nasal Cannula 4.00 02/06/18 14:52 98.5 82 18 123/63 100 02/06/18 14:50 98.6 79 18 120/67 100 02/06/18 14:45 98.6 76 16 115/63 99 02/06/18 14:08 87 02/06/18 13:01 76 02/06/18 12:52 96 Nasal Cannula 4.00 02/06/18 12:52 98.0 76 20 135/72 (93) 96 02/06/18 12:52 76 02/06/18 11:00 97 02/06/18 11:00 97 Nasal Cannula 4.00 02/06/18 11:00 98.1 97 18 138/78 (98) 99 Labs: Laboratory Tests Test 02/07/18 03:30 White Blood Count 14.4 TH/MM3 (4.0-11.0) Red Blood Count 3.37 MIL/MM3 (4.50-5.90) Hemoglobin 10.3 GM/DL (13.0-17.0) Hematocrit 30.3 % (39.0-51.0) Mean Corpuscular Volume 89.7 FL (80.0-100.0) Mean Corpuscular Hemoglobin 30.4 PG (27.0-34.0) Mean Corpuscular Hemoglobin Concent 33.9 % (32.0-36.0) Red Cell Distribution Width 14.1 % (11.6-17.2) Platelet Count 90 TH/MM3 (150-450) Mean Platelet Volume 9.2 FL (7.0-11.0) Neutrophils (%) (Auto) 78.9 % (16.0-70.0) Lymphocytes (%) (Auto) 7.7 % (9.0-44.0) Monocytes (%) (Auto) 12.4 % (0.0-8.0) Eosinophils (%) (Auto) 0.8 % (0.0-4.0) Basophils (%) (Auto) 0.2 % (0.0-2.0) Neutrophils # (Auto) 11.4 TH/MM3 (1.8-7.7) Lymphocytes # (Auto) 1.1 TH/MM3 (1.0-4.8) Monocytes # (Auto) 1.8 TH/MM3 (0-0.9) Eosinophils # (Auto) 0.1 TH/MM3 (0-0.4) Basophils # (Auto) 0.0 TH/MM3 (0-0.2) CBC Comment AUTO DIFF Differential Comment AUTO DIFF CONFIRMED Blood Urea Nitrogen 32 MG/DL (7-18) Creatinine 1.35 MG/DL (0.60-1.30) Random Glucose 92 MG/DL (74-106) Calcium Level 7.7 MG/DL (8.5-10.1) Magnesium Level 2.3 MG/DL (1.5-2.5) Sodium Level 144 MEQ/L (136-145) Potassium Level 3.6 MEQ/L (3.5-5.1) Chloride Level 103 MEQ/L (98-107) Carbon Dioxide Level 29.5 MEQ/L (21.0-32.0) Anion Gap 12 MEQ/L (5-15) Estimat Glomerular Filtration Rate 53 ML/MIN (>89) Result Diagram: 02/07/18 0330 02/07/18 033 Imaging: Last 24 hours Impressions Chest X-Ray 02/07/18 0600 Signed Impressions: Service Date/Time: Wednesday, February 07, 2018 07:52 - CONCLUSION: The lungs are clear. No evidence of pneumothorax. Ralph Orozco MD Cardiovascular: RRR Telemetry: NSR Pulmonary: CTA GI/: NABS, NT Incision: dry and intact Plan: PT/OT SNF/rehab placement Anticipate d/c tomorrow (1) COPD (chronic obstructive pulmonary disease) Plan: symbicort, nebs ezpap acapella (2) CAD (coronary artery disease) Plan: on ASA, stain , BB , start plavix if ok with neuro ok with CCM Dr Edwards (3) Hypertension Plan: po BB (4) Hyperlipemia Plan: on statin (5) S/P CABG (coronary artery bypass graft) Plan: ASA, statin pulm toileting OOB after bedrest completed . eval for HHC at discharge keep in CVICU for now (6) Vision loss, bilateral Plan: resolved, seen by Ophthalmology will need follow up as outpt ? TIA Monica Cardona MD February 07, 2018 10:38
[2018-02-07] MEDS: ACETAMINOPHEN 500 MG CPLT PO PRN ×2 (12:50→20:53)
[2018-02-07] MEDS: OLANZapine 5 MG TAB PO SCH (20:53)
[2018-02-07] MEDS: ATORVASTATIN 40 MG TAB PO SCH (20:53)
[2018-02-07] MEDS: SENNOSIDES 8.6 MG TAB PO SCH (21:00)
[2018-02-08] VITALS (25 sets, daily range): BP systolic 104–164; BP diastolic 64–85; PULSE 72–106; RESP 17–20; TEMP 97.8–99.3; O2SAT 95–98
[2018-02-08] MEDS: RESP: ALBUTEROL 2.5 MG/IPRATROPIUM 0.5 MG NEB (PRN) NEB (00:57)
[2018-02-08] MEDS: PANTOPRAZOLE SOD 40 MG DELAYED RELEASE TAB PO SCH (06:18)
[2018-02-08] MEDS: INSULIN ASPART SUPPLEMENTAL SCALE SQ SCH ×3 (08:00→16:34)
[2018-02-08] MEDS: RESP: ALBUTEROL 2.5 MG/IPRATROPIUM 0.5 MG NEB (SCH) NEB ×3 (08:06→21:25)
[2018-02-08] MEDS: MULTIVITAMINS/MINERALS THERAPEUTIC TAB PO SCH (08:31)
[2018-02-08] MEDS: LORazepam 2 MG/ML VIAL IV PRN (08:31)
[2018-02-08] MEDS: BUDESONIDE-FORMOTEROL 80/4.5 MCG INHALER INH SCH ×2 (08:31→21:12)
[2018-02-08] MEDS: ASPIRIN 81 MG CHEW TAB PO SCH (08:32)
[2018-02-08] MEDS: THIAMINE HCL 100 MG TAB PO SCH (08:32)
[2018-02-08] MEDS: FOLIC ACID 1 MG TAB PO SCH (08:32)
[2018-02-08] MEDS: AMIODARONE 200 MG TAB PO SCH ×2 (08:32→21:12)
[2018-02-08] MEDS: CLOPIDOGREL 75 MG TAB PO SCH (08:32)
[2018-02-08] MEDS: SODIUM CHLORIDE 0.9% FLUSH 10 ML FLUSH IV FLUSH SCH ×2 (08:33→21:12)
[2018-02-08] MEDS: MUPIROCIN 2% OINT 1 APPLIC/GM SYR EACH NARE SCH ×2 (08:33→21:11)
[2018-02-08] MEDS: METOPROLOL TARTRATE 25 MG TAB PO SCH ×2 (08:33→21:12)
[2018-02-08] MEDS: DOCUSATE SODIUM 100 MG CAP PO SCH ×2 (08:34→21:11)
[2018-02-08] MEDS: MAGNESIUM HYDROXIDE SUSP 30 ML CUP PO SCH (08:35)
[2018-02-08] MEDS: POLYETHYLENE GLYCOL 17 GM PKG PO SCH (08:35)
[2018-02-08] MEDS: EZETIMIBE 10 MG TAB PO SCH (08:35)
[2018-02-08] MEDS: OLANZapine 2.5 MG TAB PO SCH ×2 (08:42→14:02)
[2018-02-08 11:19] LABS: HEMATOCRIT 31.1 % (39.0-51.0); HEMOGLOBIN 10.4 GM/DL (13.0-17.0); MEAN CELL VOLUME 92.2 FL (80.0-100.0); MEAN CORPUSCULAR HEMOGLOBIN 30.8 PG (27.0-34.0); MEAN CORPUSCULAR HGB CONC 33.4 % (32.0-36.0); MEAN PLATELET VOLUME 8.3 FL (7.0-11.0); PLATELET COUNT 154 TH/MM3 (150-450); RED BLOOD COUNT 3.37 MIL/MM3 (4.50-5.90); RED CELL DISTRIBUTION WIDTH 14.3 % (11.6-17.2); WHITE BLOOD COUNT 13.2 TH/MM3 (4.0-11.0)
--- NOTE | 2018-02-08 11:28 | RADRPT ---
EXAM DATE/TIME: 02/08/2018 10:27 [facility] COMPARISON: CHEST SINGLE AP, February 07, 2018, 7:52. INDICATIONS : Evaluate for pneumonia. Patient complains of pain when coughing and shortness of breath. MEDICAL HISTORY : Hypertension. Cardiovascular disease. Chronic obstructive pulmonary disease SURGICAL HISTORY : CABG. ENCOUNTER: Subsequent ACUITY: 4 - 6 days PAIN SCORE: 0/10 LOCATION: Bilateral chest FINDINGS: Trace pleural fluid has developed in both lung bases. There is mild interstitial prominence in the le ft base. Lungs are markedly hyperinflated. Heart and mediastinal structures are stable. Median sternotomy wires from previous open heart surgery are noted. CONCLUSION: 1. New trace pleural effusions. This may resent early congestion in the background of COPD. 2. Status post CABG 3. Otherwise stable chest Holden Pickett MD on February 08, 2018 at 11:24 Board Certified Radiologist. This report was verified electronically.
[2018-02-08 11:53] LABS: BICARBONATE 29.2 MEQ/L (21.0-32.0); CALCIUM 7.9 MG/DL (8.5-10.1); CREATININE 1.23 MG/DL (0.60-1.30); MAGNESIUM 2.9 MG/DL (1.5-2.5)
--- NOTE | 2018-02-08 15:50 | PD.CAR.PN ---
CVT Progress Note Subjective/Hospital Course: 67-year-old male, presented to the emergency room with chest pain, acute onset of substernal chest discomfort, apparently admitted last evening after he had an acute onset of substernal chest pain, had a vodka tonic prior to dinner, developed the pain without radiation, associated with some nausea, diaphoresis, took a nitro without much relief. He came into the Emergency Room, received some morphine in addition to the nitro and the symptoms subsided. [facility]. The troponins ruled in for non-ST segment ID. Troponins first was 0.02, then 0.97. EKG had some T-wave inversion in the lateral leads. The patient underwent cardiac catheterization this morning that showed an 80% left main, circumflex with 90% stenosis, the obtuse marginal 70%, the RCA 50%, the ejection fraction 60%. The patient had pain throughout the catheterization. An intraaortic balloon pump was placed in the right groin. He was also placed on nitroglycerin drip up to a rate of 50 mcg per hour. We were consulted immediately for left main disease, status post intraaortic balloon pump placement, a non-ST segment ID and ongoing chest pain. PAST MEDICAL HISTORY: Coronary artery disease, prior ID, PCI to the left circ back in 1995, peripheral arterial disease with history of claudication. He had an intervention with a right iliac stent at that time, hyperlipidemia, COPD, tobacco abuse. 02/03 pt underwent emergent CABG x 3, RAMIREZ to LAD - good, SVG to OM1 - good, SVG to OM2 - good, EVH found to have hyperinflated lungs extubated after surgery crystalloid 2500cc, 750cc cell saver, CPB 79min 02/[address] to 1:3 this am given one unit PRBC, slightly confused attempted to sit up in bed with IABP in place Procedure IABP removed right groin, with assistance from Dr Feldman hemostasis obtained after 20 min, + distal pulses, no hematoma started on BB , will add juany noe, unclear of ETOH use keep in ICU for now , will need aggressive pulm toileting addendum 02/04 pt s/o of sudden onset ob bilateral blindness , complete visual loss , emergent stroke alert called then taken to CT scan 02/05 Brain MRI : 1. Numerous small areas of signal abnormality seen in the cerebral and cerebellar hemispheres consistent multiple small areas of infarction. 2. There are a few scattered areas of signal abnormality within the cerebral white matter likely related to small vessel ischemic change. Neck CTA : CONCLUSION: 1. No flow-limiting stenosis or dissection in the carotid or vertebral arteries. 2. Immediate postsurgical features of CABG. pt was seen and evaluated by ophthalmology Dr Crenshaw She describes no evidence of central retinal artery occlusion or retinal hemorrhage, but does describe significantly pale optic disks consistent with ischemic optic neuropathy. pt also seen by Neurology on exam this am , pt now wearing his glasses " I can now see ok , EOM intact PEARLA, peripheral vision intact , still slightly confused will need to avoid narcotics , poor cough effort , needs aggressive pulm toileting , still has some confusion, PT/OT / speech therapy discussed with Dr Grace taylor in CVICU and add scheduled zyprexa dc narcotics, tylenol for pain will need rehab at discharge Subjective: 02/05: patient had recovery of vision overnight. MRI with small punctate ischemic areas suggestive of embolic phenomenon, but none large enough to cause symptoms of bilateral vision loss. 02/06/18 c/o dyspnea, anemic O and A x 3 02/07/18 Doing well this morning, oriented and alert x 3. continues to demonstrate some confusion at night and is a fall risk 02/08 More alert and oriented congested cough/ gentle diuresis/ productive cough / add zithromax OOB ambulate eval for dc to SNF in am will need oupt f/u Dr Beltrán and Dr Crenshaw (ophthalmology) Objective: GENERAL: more alert and oriented SKIN: Warm and dry. prevena dressing to chest HEAD: Normocephalic. EYES: No scleral icterus. No injection or drainage. NECK: Supple, trachea midline. No JVD or lymphadenopathy. CARDIOVASCULAR: Regular rate and rhythm without murmurs, gallops, or rubs. RESPIRATORY: Breath sounds equal bilaterally. No accessory muscle use. coarse bilateral breath sounds GASTROINTESTINAL: Abdomen soft, non-tender, nondistended. MUSCULOSKELETAL: No cyanosis, or edema. BACK: Nontender without obvious deformity. No CVA tenderness. Vital Signs Date Time Temp Pulse Resp B/P (MAP) Pulse Ox O2 Delivery O2 Flow Rate FiO2 02/08/18 14:00 88 02/08/18 13:00 89 02/08/18 12:00 87 02/08/18 11:00 83 02/08/18 11:00 98.6 83 17 129/72 (91) 96 02/08/18 11:00 96 Nasal Cannula 2.00 02/08/18 10:00 97 02/08/18 09:00 92 02/08/18 08:09 97 Nasal Cannula 3.00 02/08/18 08:00 90 02/08/18 07:30 96 Nasal Cannula 2.00 02/08/18 07:30 98.3 88 17 110/71 (84) 96 02/08/18 07:00 97 02/08/18 06:15 84 02/08/18 05:04 83 02/08/18 04:54 97 Nasal Cannula 2.00 02/08/18 04:52 98.5 82 110/74 (86) 97 02/08/18 04:47 88 02/08/18 03:00 82 02/08/18 02:52 87 02/08/18 01:39 84 02/08/18 00:28 95 Nasal Cannula 2.00 02/08/18 00:26 99.3 81 104/64 (77) 95 02/08/18 00:24 84 02/07/18 23:00 81 02/07/18 22:05 22 02/07/18 22:04 90 02/07/18 21:51 91 02/07/18 19:00 92 02/07/18 19:00 97 Nasal Cannula 3.00 02/07/18 19:00 99.7 92 119/70 (86) 97 02/07/18 18:08 88 02/07/18 17:07 93 02/07/18 16:09 87 Labs: Laboratory Tests Test 02/08/18 11:00 White Blood Count 13.2 TH/MM3 (4.0-11.0) Red Blood Count 3.37 MIL/MM3 (4.50-5.90) Hemoglobin 10.4 GM/DL (13.0-17.0) Hematocrit 31.1 % (39.0-51.0) Mean Corpuscular Volume 92.2 FL (80.0-100.0) Mean Corpuscular Hemoglobin 30.8 PG (27.0-34.0) Mean Corpuscular Hemoglobin Concent 33.4 % (32.0-36.0) Red Cell Distribution Width 14.3 % (11.6-17.2) Platelet Count 154 TH/MM3 (150-450) Mean Platelet Volume 8.3 FL (7.0-11.0) Blood Urea Nitrogen 24 MG/DL (7-18) Creatinine 1.23 MG/DL (0.60-1.30) Random Glucose 75 MG/DL (74-106) Calcium Level 7.9 MG/DL (8.5-10.1) Magnesium Level 2.9 MG/DL (1.5-2.5) Sodium Level 143 MEQ/L (136-145) Potassium Level 3.7 MEQ/L (3.5-5.1) Chloride Level 104 MEQ/L (98-107) Carbon Dioxide Level 29.2 MEQ/L (21.0-32.0) Anion Gap 10 MEQ/L (5-15) Estimat Glomerular Filtration Rate 59 ML/MIN (>89) Result Diagram: 02/08/18 1100 02/08/18 1100 (1) COPD (chronic obstructive pulmonary disease) Plan: symbicort, nebs ezpap acapella (2) CAD (coronary artery disease) Plan: on ASA, stain , BB , plavix OOB ambulate pulm toileting (3) Hypertension Plan: po BB (4) Hyperlipemia Plan: on statin (5) S/P CABG (coronary artery bypass graft) Plan: ASA, statin pulm toileting OOB after bedrest completed . eval for HHC at discharge keep in CVICU for now (6) Vision loss, bilateral Plan: resolved, seen by Ophthalmology will need follow up as outpt ? Radha Yin February 08, 2018 15:50
[2018-02-08] MEDS ORDERED: FUROSEMIDE 40 MG/4 ML VIAL IV PUSH ONE (16:00)
[2018-02-08] MEDS ORDERED: POTASSIUM CHLORIDE 10 MEQ CONTROLLED RELEASE TAB PO ONE (16:00)
[2018-02-08] MEDS ORDERED: POTASSIUM CHLORIDE 25 MEQ EFFERVESCENT TAB PO ONE (18:00)
[2018-02-08] MEDS: SENNOSIDES 8.6 MG TAB PO SCH (21:11)
[2018-02-08] MEDS: OLANZapine 5 MG TAB PO SCH (21:11)
[2018-02-08] MEDS: ATORVASTATIN 40 MG TAB PO SCH (21:12)
[2018-02-09] VITALS (12 sets, daily range): BP systolic 141–168; BP diastolic 68–80; PULSE 87–95; RESP 20–24; TEMP 98–98.2; O2SAT 91–96
[2018-02-09] MEDS: PANTOPRAZOLE SOD 40 MG DELAYED RELEASE TAB PO SCH (06:08)
[2018-02-09] MEDS: INSULIN ASPART SUPPLEMENTAL SCALE SQ SCH ×2 (07:44→11:40)
[2018-02-09] MEDS: OLANZapine 2.5 MG TAB PO SCH (08:00)
[2018-02-09] MEDS: RESP: ALBUTEROL 2.5 MG/IPRATROPIUM 0.5 MG NEB (SCH) NEB (08:55)
[2018-02-09] MEDS: MULTIVITAMINS/MINERALS THERAPEUTIC TAB PO SCH (08:56)
[2018-02-09] MEDS: AMIODARONE 200 MG TAB PO SCH (08:57)
[2018-02-09] MEDS: DOCUSATE SODIUM 100 MG CAP PO SCH (08:57)
[2018-02-09] MEDS: EZETIMIBE 10 MG TAB PO SCH (08:57)
[2018-02-09] MEDS: FOLIC ACID 1 MG TAB PO SCH (08:57)
[2018-02-09] MEDS: ASPIRIN 81 MG CHEW TAB PO SCH (08:57)
[2018-02-09] MEDS: MAGNESIUM HYDROXIDE SUSP 30 ML CUP PO SCH (08:58)
[2018-02-09] MEDS: SODIUM CHLORIDE 0.9% FLUSH 10 ML FLUSH IV FLUSH SCH (08:58)
[2018-02-09] MEDS: METOPROLOL TARTRATE 25 MG TAB PO SCH (08:58)
[2018-02-09] MEDS: BUDESONIDE-FORMOTEROL 80/4.5 MCG INHALER INH SCH (08:59)
[2018-02-09] MEDS: THIAMINE HCL 100 MG TAB PO SCH (08:59)
[2018-02-09] MEDS: CLOPIDOGREL 75 MG TAB PO SCH (08:59)
[2018-02-09] MEDS: POLYETHYLENE GLYCOL 17 GM PKG PO SCH (08:59)
[2018-02-09] MEDS ORDERED: AZITHROMYCIN 250 MG TAB PO SCH (09:00)
[2018-02-09] MEDS: MUPIROCIN 2% OINT 1 APPLIC/GM SYR EACH NARE SCH (09:00)
[2018-02-09] MEDS ORDERED: FOLI1TAB6 PO (10:53)
[2018-02-09] MEDS ORDERED: ACET500T13 PO (10:53)
[2018-02-09] MEDS ORDERED: AMIO200T PO (10:53)
[2018-02-09] MEDS ORDERED: OLAN5TAB PO (10:53)
[2018-02-09] MEDS ORDERED: METO25TA3 PO (10:53)
[2018-02-09] MEDS ORDERED: THERM PO (10:53)
[2018-02-09] MEDS ORDERED: AZIT250T3 PO (10:53)
[2018-02-09] MEDS ORDERED: THIA100 PO (10:53)
[2018-02-09] MEDS ORDERED: PLAV75TA29 PO (10:53)
[2018-02-09] MEDS ORDERED: DOCU1CAP39 PO (10:53)
--- NOTE | 2018-02-09 10:57 | HHI.DS ---
Discharge Summary Admission Date February 03, 2018 at 18:44 Discharge Date: February 09, 2018 Admitting Diagnosis Chest pain (1) NSTEMI (non-ST elevated myocardial infarction) Diagnosis: Principal ICD Codes: I21.4 - Non-ST elevation (NSTEMI) myocardial infarction (2) S/P CABG (coronary artery bypass graft) Diagnosis: Secondary ICD Codes: Z95.1 - Presence of aortocoronary bypass graft (3) Ischemic optic neuropathy of both eyes Diagnosis: Secondary ICD Codes: H47.013 - Ischemic optic neuropathy, bilateral (4) Hypertension Diagnosis: Principal ICD Codes: I10 - Essential (primary) hypertension Status: Acute (5) Hyperlipemia Diagnosis: Principal ICD Codes: E78.5 - Hyperlipidemia, unspecified Status: Acute (6) Anxiety Diagnosis: Principal ICD Codes: F41.9 - Anxiety disorder, unspecified Status: Acute Procedures Emergency CABG x 3 02/03 RAMIREZ to LAD - good SVG to OM1 - good SVG to OM2 - good EVH Brief History 67-year-old male, presented to the emergency room with chest pain, acute onset of substernal chest discomfort, apparently admitted last evening after he had an acute onset of substernal chest pain, had a vodka tonic prior to dinner, developed the pain without radiation, associated with some nausea, diaphoresis, took a nitro without much relief. He came into the Emergency Room, received some morphine in addition to the nitro and the symptoms subsided. He was [facility]. The troponins ruled in for non-ST segment CA. Troponins first was 0.02, then 0.97. EKG had some T-wave inversion in the lateral leads. The patient underwent cardiac catheterization this morning that showed an 80% left main, circumflex with 90% stenosis, the obtuse marginal 70%, the RCA 50%, the ejection fraction 60%. The patient had pain throughout the catheterization. An intraaortic balloon pump was placed in the right groin. He was also placed on nitroglycerin drip up to a rate of 50 mcg per hour. We were consulted immediately for left main disease, status post intraaortic balloon pump placement, a non-ST segment CA and ongoing chest pain. PAST MEDICAL HISTORY: Coronary artery disease, prior CA, PCI to the left circ back in 1995, peripheral arterial disease with history of claudication. He had an intervention with a right iliac stent at that time, hyperlipidemia, COPD, tobacco abuse. CBC/BMP: 02/08/18 1100 02/08/18 1100 Significant Findings Laboratory Tests Test 02/07/18 03:30 02/08/18 11:00 White Blood Count 14.4 TH/MM3 (4.0-11.0) 13.2 TH/MM3 (4.0-11.0) Red Blood Count 3.37 MIL/MM3 (4.50-5.90) 3.37 MIL/MM3 (4.50-5.90) Hemoglobin 10.3 GM/DL (13.0-17.0) 10.4 GM/DL (13.0-17.0) Hematocrit 30.3 % (39.0-51.0) 31.1 % (39.0-51.0) Platelet Count 90 TH/MM3 (150-450) Neutrophils (%) (Auto) 78.9 % (16.0-70.0) Lymphocytes (%) (Auto) 7.7 % (9.0-44.0) Monocytes (%) (Auto) 12.4 % (0.0-8.0) Neutrophils # (Auto) 11.4 TH/MM3 (1.8-7.7) Monocytes # (Auto) 1.8 TH/MM3 (0-0.9) Blood Urea Nitrogen 32 MG/DL (7-18) 24 MG/DL (7-18) Creatinine 1.35 MG/DL (0.60-1.30) Calcium Level 7.7 MG/DL (8.5-10.1) 7.9 MG/DL (8.5-10.1) Estimat Glomerular Filtration Rate 53 ML/MIN (>89) 59 ML/MIN (>89) Magnesium Level 2.9 MG/DL (1.5-2.5) Imaging Last Impressions Chest X-Ray 02/08/18 0000 Signed Impressions: Service Date/Time: Thursday, February 08, 2018 10:27 - CONCLUSION: 1. New trace pleural effusions. This may resent early congestion in the background of COPD. 2. Status post CABG 3. Otherwise stable chest Holden Pickett MD Neck CTA 02/04/18 0000 Signed Impressions: Service Date/Time: January 15:06 - CONCLUSION: 1. No flow-limiting stenosis or dissection in the carotid or vertebral arteries. 2. Immediate postsurgical features of CABG. Gonzalo Jean MD Head CTA 02/04/18 0000 Signed Impressions: Service Date/Time: January 15:06 - CONCLUSION: 1. Unremarkable head CTA. No evidence for large vessel occlusion. Gonzalo Jean MD Head CT 02/04/18 0000 Signed Impressions: Service Date/Time: January 14:51 - CONCLUSION: Normal examination for a patient of this age. Ortiz Carmona MD Brain MRI 02/04/18 0000 Signed Impressions: Service Date/Time: January 20:16 - CONCLUSION: 1. Numerous small areas of signal abnormality seen in the cerebral and cerebellar hemispheres consistent multiple small areas of infarction. 2. There are a few scattered areas of signal abnormality within the cerebral white matter likely related to small vessel ischemic change. Tommie Swain MD PE at Discharge GENERAL: Awake and alert , no visual disturbance SKIN: Warm and dry. prevena dressing to chest , left leg EVH site intact , ecchymosis to left medial upper and lower leg HEAD: Normocephalic. EYES: No scleral icterus. No injection or drainage. NECK: Supple, trachea midline. No JVD or lymphadenopathy. CARDIOVASCULAR: Regular rate and rhythm without murmurs, gallops, or rubs. RESPIRATORY: Breath sounds equal bilaterally. No accessory muscle use. GASTROINTESTINAL: Abdomen soft, non-tender, nondistended. MUSCULOSKELETAL: No cyanosis, or edema. BACK: Nontender without obvious deformity. No CVA tenderness. Pt Condition on Discharge: Good Discharge Disposition: Discharge to SNF Discharge Instructions DIET: Follow Instructions for: Heart Healthy Diet Activities you can perform: Full Weight Bearing, Shower Only-No Bath Activities to avoid: Strenuous Activity, Driving Additional Activity Instructio: no lifting > 8 lbs Follow up Referrals: Appointment for Follow Up - 4 Weeks with Afshan Crenshaw MD Cardiology, Interventional - 4 Weeks @ [facility] Cardiology with Brigido Taylor MD PCP Follow-up - 2 Weeks with Nelly Walters MD Surgical - 2 Weeks with Monica Cardona MD New Orders: BASIC METABOLIC PROF - 2 Weeks CBC NO DIFF - 2 Weeks X-RAY CHEST PA & LAT - 2 Weeks New Medications: Acetaminophen (APAP Extra Strength) 500 Mg Tab 650 MG PO Q6H PRN for PAIN SCALE 1 TO 5, #30 TAB Amiodarone (Amiodarone) 200 Mg Tab 200 MG PO Q12HR for heart rhythm, #28 TAB x 2 weeks, no refill Azithromycin (Azithromycin) 250 Mg Tab 500 MG PO DAILY for antibiotic, #4 TAB Clopidogrel (Plavix) 75 Mg Tab 75 MG PO DAILY for Blood Clot Prevention, #30 TAB 2 Refills Docusate Sodium (Dok) 100 Mg Cap 100 MG PO DAILY for Constipation, #30 CAP 0 Refills Folic Acid (Folic Acid) 1 Mg Tablet 1 MG PO DAILY for vitamin, #30 TAB 2 Refills Metoprolol Tartrate (Metoprolol Tartrate) 25 Mg Tab 25 MG PO Q12HR for Blood Pressure Management, #60 TAB 2 Refills Multiple Vitamins W/ Minerals (Thera M Plus) 1 Tab 1 TAB PO DAILY for mutli vitamin, #30 TAB 2 Refills Olanzapine (Olanzapine) 5 Mg Tab 5 MG PO HS for Anxiety and/or Insomnia, #30 TAB 2 Refills Thiamine HCl (Gnp Vitamin B-1) 100 Mg Tab 100 MG PO DAILY for vitamin, #30 TAB 2 Refills Continued Medications: Albuterol 8.5 GM Inh (Proair Hfa 8.5 GM Inh) 90 Mcg/Act Aer 2 PUFF INH Q4-6H PRN for SHORTNESS OF BREATH, #1 INHALER 3 Refills 108 mcg/actuation Ascorbic Acid (Ascorbic Acid) 500 Mg Tab 500 MG PO DAILY, TAB Aspirin (Aspirin Low Dose) 81 Mg Chew 81 MG CHEW DAILY, TAB 0 Refills Budesonide-Formoterol Inh (Symbicort Inh) 80-4.5 Mcg/Act Aero 2 PUFF INH Q12HR for Asthma Management, #1 INHALER 5 Refills Ezetimibe (Zetia) 10 Mg Tab 10 MG PO DAILY, #30 TAB 0 Refills Rosuvastatin (Crestor) 20 Mg Tab 20 MG PO DAILY for Cholesterol Management, #90 TAB 1 Refill Discontinued Medications: Alprazolam (Alprazolam) 0.5 Mg Tab 0.5 MG PO Q8H PRN for ANXIETY, TAB 0 Refills B-Complex Vitamins (Vitamin B Complex) 1 Tab Lisinopril (Lisinopril) 10 Mg Tab 10 MG PO DAILY, #90 TAB 3 Refills Triamcinolone Topical (Triamcinolone Topical) 0.025% Cream 1 APPLIC TOPICAL BID for Inflammation, #1 TUBE 0 Refills Vitamin E (Topical) (Vitamin E) 100 Unit/Gm Radha Berman February 09, 2018 10:57
== END 2018-02-09 13:00 | DRG 234 ==
LOC: NEPC 20:55 → NEDA 22:27 → NEPGCP 22:58 → HCIS 02-03 10:47 → HCVI 02-03 12:45 → OBSVTOIN 02-03 18:44 → HCPC 02-06 12:42
PROVIDERS: ADMIT Thoracic Surgery (Cardiothoracic Vascular Surgery); ATTEND Thoracic Surgery (Cardiothoracic Vascular Surgery)
PROC: 5A02210 Assistance with Cardiac Output using Balloon Pump, Continuous (ICD-10-PCS; 2018-02-03)
PROC: 021109W Bypass Coronary Artery, Two Arteries from Aorta with Autologous Venous Tissue, Open Approach (ICD-10-PCS; 2018-02-03)
PROC: 06BQ4ZZ Excision of Left Saphenous Vein, Percutaneous Endoscopic Approach (ICD-10-PCS; 2018-02-03)
PROC: 5A1221Z Performance of Cardiac Output, Continuous (ICD-10-PCS; 2018-02-03)
PROC: 30233R1 Transfusion of Nonautologous Platelets into Peripheral Vein, Percutaneous Approach (ICD-10-PCS; 2018-02-03)
PROC: B2151ZZ Fluoroscopy of Left Heart using Low Osmolar Contrast (ICD-10-PCS; 2018-02-03)
PROC: 4A023N7 Measurement of Cardiac Sampling and Pressure, Left Heart, Percutaneous Approach (ICD-10-PCS; 2018-02-03)
PROC: B3121ZZ Fluoroscopy of Left Subclavian Artery using Low Osmolar Contrast (ICD-10-PCS; 2018-02-03)
PROC: 02100Z9 Bypass Coronary Artery, One Artery from Left Internal Mammary, Open Approach (ICD-10-PCS; principal; 2018-02-03 11:00)
PROC: B2111ZZ Fluoroscopy of Multiple Coronary Arteries using Low Osmolar Contrast (ICD-10-PCS; 2018-02-03 13:37)
PROC: 30233N1 Transfusion of Nonautologous Red Blood Cells into Peripheral Vein, Percutaneous Approach (ICD-10-PCS; 2018-02-04)
DX: I21.4 Non-ST elevation (NSTEMI) myocardial infarction (principal); N17.9 Acute kidney failure, unspecified; F10.231 Alcohol dependence with withdrawal delirium; D69.6 Thrombocytopenia, unspecified; D62 Acute posthemorrhagic anemia; J44.9 Chronic obstructive pulmonary disease, unspecified; I73.9 Peripheral vascular disease, unspecified; I10 Essential (primary) hypertension; F41.9 Anxiety disorder, unspecified; I25.110 Atherosclerotic heart disease of native coronary artery with unstable angina pectoris; E78.5 Hyperlipidemia, unspecified; F17.210 Nicotine dependence, cigarettes, uncomplicated; H54.3 Unqualified visual loss, both eyes; H47.013 Ischemic optic neuropathy, bilateral; D72.829 Elevated white blood cell count, unspecified; R06.89 Other abnormalities of breathing; Z95.820 Peripheral vascular angioplasty status with implants and grafts; Z79.82 Long term (current) use of aspirin; I25.2 Old myocardial infarction
CPT/HCPCS: 33967; 36430; 70450; 70496; 70498; 70551; 71045; 76937; 80048; 80053; 80061; 80076; 82550; 82552; 82948; 83036; 83735; 84100; 84484; 85014; 85018; 85025; 85027; 85384; 85610; 85730; 86850; 86900; 86901; 86920; 87641; 93005; 93306; 93458; 94002; 94150; 94640; 94664; 94667; 94668; 96374; 96376; 99152; 99153; C1769; C1893; G0378; J0131; J0171; J0360; J0461; J0690; J1644; J1650; J1815; J1817; J1940; J2060; J2150; J2250; J2270; J2370; J2405; J2440; J2710; J2720; J2930; J3010; J3370; J3475; J3480; J7030; J7050; J7120; P9016; P9035; P9045; P9047; Q9967

== ENCOUNTER 2018-05-24 14:05 | Observation (INO) ==
--- NOTE | 2018-05-24 14:42 | ED ---
HPI General Chief Complaint: Chest Pain Stated Complaint: dull pain chest and upperback Time Seen by Provider: 05/24/18 14:17 Source: patient Limitations: no limitations History of Present Illness MD complaint: chest pain Complete Quality Measures for STEMI Alert Patients STEMI Alert: No Onset (ago): hour(s) (2) Duration: intermittent Onset: during rest Pain location: substernal Severity: moderate Severity scale (1-10): 6 Quality: tightness and heaviness Pain radiation: back Relieving factors: nothing Exacerbating factors: nothing Context: recent surgery (CABG in January) Treatments prior to arrival chest pain: aspirin Related Data Home Medications Medication Instructions Recorded Confirmed alprazolam 0.25 mg PO BID PRN 05/24/18 05/24/18 aspirin [Aspirin Low Dose] 81 mg PO DAILY 05/24/18 05/24/18 carvedilol mg PO BID 05/24/18 clopidogrel [Plavix] mg PO DAILY 05/24/18 lisinopril mg PO DAILY 05/24/18 sertraline [Zoloft] mg PO DAILY 05/24/18 Allergies Allergy/AdvReac Type Severity Reaction Status Date / Time No Known Allergies Allergy Unverified 02/04/18 10:04 Review of Systems ROS: all other systems reviewed are negative PMFSH History History Provided By: Patient and Medical Record Medical History Medical History COPD (chronic obstructive pulmonary disease) (Acute) Coronary artery disease (Acute) HTN (hypertension) (Acute) History of CVA (cerebrovascular accident) without residual deficits (Acute) Peripheral vascular disease (Acute) Surgical History Surgical History H/O [id number] bypass (Acute) History of tonsillectomy (Acute) S/P triple vessel bypass (Acute) Family History Family History Father Heart disease Social History Social History Substance History: No History of Abuse Smoking Status: Former smoker How Often Do You Have a Drink Containing Alcohol: 2 to 4 times a month Recent Travel in [facility] within the Last 8 Weeks: No Recent Out of Country Travel within the Last 8 Weeks: No Exam Narrative Exam Narrative: GENERAL:alert & oriented in no distress SKIN: Focused skin assessment warm/dry. HEAD: Atraumatic. Normocephalic. EYES: Pupils equal and round. No scleral icterus. No injection or drainage. ENT: No nasal bleeding or discharge. Mucous membranes pink and moist. NECK: Trachea midline. No JVD. CARDIOVASCULAR: Regular rate and rhythm. No murmur appreciated. RESPIRATORY: No accessory muscle use. Clear to auscultation. Breath sounds equal bilaterally. GASTROINTESTINAL: Abdomen soft, non-tender, nondistended. Hepatic and splenic margins not palpable. MUSCULOSKELETAL: No obvious deformities. No clubbing. No cyanosis. No edema. NEUROLOGICAL: Awake and alert. No obvious cranial nerve deficits. Motor grossly within normal limits. Normal speech. PSYCHIATRIC: Appropriate mood and affect; insight and judgment normal. Course Initial Documented Vital Signs Temperature 97.9 F 05/24/18 14:11 Pulse Rate 73 05/24/18 14:11 Respiratory Rate 15 05/24/18 14:11 Blood Pressure 191/102 H 05/24/18 14:11 Last Documented Vital Signs Temperature 97.9 F 05/24/18 14:11 Pulse Rate 72 05/24/18 16:02 Respiratory Rate 16 05/24/18 16:02 Blood Pressure 172/94 H 05/24/18 16:02 Pulse Oximetry 99 05/24/18 16:02 Critical Care Time Critical Care Time: Yes Total Critical Care Time: 30 Attestation: Aggregate critical care time was 30 minutes. Time to perform other separately billable procedures was not included in the critical care time. My time did not include minutes spent treating any other patients simultaneously or on activities that did not directly contribute to the patient's treatment. The services I provided to this patient were to treat and/or prevent clinically significant deterioration that could result in: Permanent disability and or , cardiopulmonary collapse I provided critical care services requiring my management, as noted below: Chart data review, documentation time, medication orders and management, vital sign assessments/reviewing monitor data, ordering and reviewing lab tests, ordering and interpreting/reviewing x-rays and diagnostic studies, care of the patient and discussion of the patient with the admitting physicians. Medical Decision Making MDM Narrative Medical decision making narrative: not suggestive of infectious process.No leukocytosis or left shift, Markedly elevated creatinine at 2.26 and a BUN of 35 suggestive of acute kidney injury. Chest x-ray. Initial EKG and troponin not suggestive of acute ischemia. Due to coronary artery disease and multiple risk factors will admit to rule out ACS. Hyperkalemia was treated due to complaint of chest pain with calcium gluconate, D50 amp as well as 6 units of insulin IV. Repeat potassium is pending. Medical Screen Exam Complete: Yes Emergency Medical Condition: Yes Lab Data Lab results reviewed: Yes I reviewed the patient's lab results. Result diagrams: 05/24/18 14:33 05/24/18 17:20 Lab Results 05/24/18 05/24/18 05/24/18 Range/Units 14:33 14:33 14:33 WBC 10.0 (4.0-11.0) th/mm3 RBC 4.54 (4.50-5.90) mil/mm3 Hgb 13.9 (13.0-17.0) gm/dL Hct 41.3 (39.0-51.0) % MCV 90.8 (80.0-100.0) fL MCH 30.5 (27.0-34.0) pg MCHC 33.6 (32.0-36.0) % RDW 14.8 (11.6-17.2) % Plt Count 230 (150-450) th/mm3 MPV 8.4 (7.0-11.0) fL Neut % (Auto) 65.8 (16.0-70.0) % Lymph % (Auto) 19.4 (9.0-44.0) % [place] % (Auto) 7.3 (0.0-8.0) % Eos % (Auto) 5.7 H (0.0-4.0) % Baso % (Auto) 1.8 (0.0-2.0) % Neut # (Auto) 6.6 (1.8-7.7) th/mm3 Lymph # (Auto) 1.9 (1.0-4.8) th/mm3 [place] # (Auto) 0.7 (0.0-0.9) th/mm3 Eos # (Auto) 0.6 H (0.0-0.4) th/mm3 Baso # (Auto) 0.2 (0.0-0.2) th/mm3 WBC Differential . Differential Comment Auto diff final PT 9.9 (9.8-11.6) sec INR 1.0 Ratio APTT 27.1 (24.3-30.1) sec Sodium 139 (136-145) meq/L Potassium 5.5 H (3.5-5.1) meq/L Chloride 106 (98-107) meq/L Carbon Dioxide 24.9 (21.0-32.0) meq/L Anion Gap 8 (5-15) meq/L BUN 35 H (7-18) mg/dL Creatinine 2.26 H (0.60-1.30) mg/dL Estimated GFR 29 L (>89) mL/min POC Glucose (68-110) mg/dl Random Glucose 113 H (74-106) mg/dL Calcium 8.5 (8.5-10.1) mg/dL Total Bilirubin 0.4 (0.2-1.0) mg/dL AST 18 (15-37) U/L ALT 26 (12-78) U/L Alkaline Phosphatase 86 (45-117) U/L Total Creatine Kinase (39-308) U/L Troponin I 0.03 (0.02-0.05) ng/mL Total Protein 8.0 (6.4-8.2) g/dL Albumin 4.2 (3.4-5.0) g/dL 05/24/18 05/24/18 05/24/18 Range/Units 14:33 16:44 17:20 WBC (4.0-11.0) th/mm3 RBC (4.50-5.90) mil/mm3 Hgb (13.0-17.0) gm/dL Hct (39.0-51.0) % MCV (80.0-100.0) fL MCH (27.0-34.0) pg MCHC (32.0-36.0) % RDW (11.6-17.2) % Plt Count (150-450) th/mm3 MPV (7.0-11.0) fL Neut % (Auto) (16.0-70.0) % Lymph % (Auto) (9.0-44.0) % [place] % (Auto) (0.0-8.0) % Eos % (Auto) (0.0-4.0) % Baso % (Auto) (0.0-2.0) % Neut # (Auto) (1.8-7.7) th/mm3 Lymph # (Auto) (1.0-4.8) th/mm3 [place] # (Auto) (0.0-0.9) th/mm3 Eos # (Auto) (0.0-0.4) th/mm3 Baso # (Auto) (0.0-0.2) th/mm3 WBC Differential Differential Comment PT (9.8-11.6) sec INR Ratio APTT (24.3-30.1) sec Sodium (136-145) meq/L Potassium 5.0 (3.5-5.1) meq/L Chloride (98-107) meq/L Carbon Dioxide (21.0-32.0) meq/L Anion Gap (5-15) meq/L BUN (7-18) mg/dL Creatinine (0.60-1.30) mg/dL Estimated GFR (>89) mL/min POC Glucose 138 H (68-110) mg/dl Random Glucose (74-106) mg/dL Calcium (8.5-10.1) mg/dL Total Bilirubin (0.2-1.0) mg/dL AST (15-37) U/L ALT (12-78) U/L Alkaline Phosphatase (45-117) U/L Total Creatine Kinase 66 (39-308) U/L Troponin I (0.02-0.05) ng/mL Total Protein (6.4-8.2) g/dL Albumin (3.4-5.0) g/dL Imaging Data Radiologist's impression: Chest X-Ray 05/24/18 14:19 CONCLUSION: Hyperinflation. ECG Data Interpretation: Normal sinus rhythm 68 bpm left atrial enlargement nonspecific ST-T wave abnormalities normal axis. Abnormal EKG Discharge Plan Discharge Disposition Patient Disposition: 30 Still Patient Discharge Condition Condition: Stable Discharge Details Diagnosis: Chest pain, Hypertension, Hyperkalemia, Acute kidney injury Physicians Team ED Provider: Saud Rios Primary Care Provider: Ginette Basilio Attending Provider: Pio Segura Other Providers: Michele Coronel Discharge Interventions Interventions: Vital Signs Last Done: 05/24/18 14:11 Status ED Status: Admitted Observation Patient
--- NOTE | 2018-05-24 14:43 | XR ---
EXAM DATE: 05/24/2018 2:41 PM EDT AGE/SEX: 68 years / Male INDICATIONS: Bilateral chest pain. CLINICAL DATA: This is the patient's initial encounter. Patient reports that signs and symptoms have been present for 1 day and indicates a pain score of 3/10. MEDICAL/SURGICAL HISTORY: Myocardial infarction. Stroke. CABG. Angioplasty. COMPARISON: [facility], XR CHEST PA AND LAT, 02/19/2018. . FINDINGS: Median sternotomy wires are noted and hyperinflation with attenuation of the lung markings. Heart siz e upper limits normal. No consolidation or effusion. CONCLUSION: Hyperinflation. Electronically signed by: Garrick Castle MD 05/24/2018 2:42 PM EDT
[2018-05-24 14:56] LABS: Baso # (Auto) 0.2 th/mm3 (0.0-0.2); Baso % (Auto) 1.8 % (0.0-2.0); Eos # (Auto) 0.6 th/mm3 (0.0-0.4); Eos % (Auto) 5.7 % (0.0-4.0); Hematocrit 41.3 % (39.0-51.0); Hemoglobin 13.9 gm/dL (13.0-17.0); Lymph # (Auto) 1.9 th/mm3 (1.0-4.8); Lymph % (Auto) 19.4 % (9.0-44.0); Mean Corpuscular HGB Conc 33.6 % (32.0-36.0); Mean Corpuscular Hemoglobin 30.5 pg (27.0-34.0); Mean Corpuscular Volume 90.8 fL (80.0-100.0); Mean Platelet Volume 8.4 fL (7.0-11.0); Mono # (Auto) 0.7 th/mm3 (0.0-0.9); Mono % (Auto) 7.3 % (0.0-8.0); Neut # (Auto) 6.6 th/mm3 (1.8-7.7); Neut % (Auto) 65.8 % (16.0-70.0); Platelet Count 230 th/mm3 (150-450); Red Blood Count 4.54 mil/mm3 (4.50-5.90); Red Cell Distribution Width 14.8 % (11.6-17.2)
[2018-05-24 15:05] LABS: Activated Partial Thrombo Time 27.1 sec (24.3-30.1); Prothrombin Time 9.9 sec (9.8-11.6)
[2018-05-24 15:15] LABS: Alanine Aminotransferase 26 U/L (12-78); Albumin 4.2 g/dL (3.4-5.0); Anion Gap 8 meq/L (5-15); Aspartate Aminotransferase 18 U/L (15-37); Blood Urea Nitrogen 35 mg/dL (7-18); Calcium 8.5 mg/dL (8.5-10.1); Carbon Dioxide 24.9 meq/L (21.0-32.0); Chloride 106 meq/L (98-107); Glomerular Filtration Rate 29 mL/min (>89); Glucose,Random 113 mg/dL (74-106); Potassium 5.5 meq/L (3.5-5.1); Sodium 139 meq/L (136-145)
[2018-05-24] MEDS ORDERED: Dextrose 50% in Water 50 ML Vial IV.PUSH ONE (15:17)
[2018-05-24] MEDS ORDERED: Sod Chloride 0.9% Inj 1,000 ML IV.SIG ONE (15:17)
[2018-05-24 15:20] LABS: Alkaline Phosphatase 86 U/L (45-117); Troponin I 0.03 ng/mL (0.02-0.05)
[2018-05-24] MEDS ORDERED: Docusate Sodium 100 MG Capsule PO PRN (16:51)
[2018-05-24] MEDS ORDERED: Morphine Inj 4 MG/ML Vial IV.PUSH PRN (17:40)
[2018-05-24] MEDS ORDERED: hydrALAZINE HCl Inj 20 MG/ML Vial IV.PUSH PRN (17:44)
[2018-05-24] MEDS ORDERED: hydrALAZINE 25 MG Tablet PO ONE (18:00)
--- NOTE | 2018-05-24 18:01 | P.HP ---
History of Present Illness Service: Hospitalist Primary Care Physician: JOHN Estrella Chief Complaint: Chest pain History of Present Illness: This is a 68-year-old male with past medical history significant for hypertension, dyslipidemia, peripheral vascular disease, COPD and coronary artery disease status post NV 2 the last one being January of this year which resulted in emergent three-vessel CABG performed by Dr. Olguin with postoperative complications of CVA, possibly embolic and ischemic optic neuropathy who presents to [facility] ED with complaints of chest pain 1 day. Patient states that around 1030 this morning he developed dull aching chest pain that seemed to originate from the mid upper back and radiated around to the chest with some mild associated nausea that patient attributes to anxiety. Patient states he took 3 baby aspirin at home prior to coming to the ED. patient states that while in the ED his symptoms started to subside and he currently has no complaints of chest pain. He denies any associated palpitations, diaphoresis, vomiting, dizziness, presyncope or shortness of breath. Patient states that pain he experienced earlier today was not similar to when he had his previous heart attacks. Patient denies any recent change in his medications or missing any of his medications. In the ED, patient's initial troponin was 0.03. Chest x-ray shows hyperinflation of lungs. Laboratory studies were significant for hypokalemia with potassium level 5.5 and acute kidney injury with creatinine of 2.26. Patient was given IV fluids as well as IV calcium gluconate and insulin. Patient's blood pressure is currently elevated which she states is very common for him when he gets anxious. He is currently satting 99% on room air. Pulse is 72. Respiratory rate is 16. - Diagnosis (1) Chest pain (2) Hypertension (3) Hyperkalemia (4) Acute kidney injury Review of Systems All other systems reviewed negative except as stated in [facility] - History History Provided By: Patient, Medical Record - Medical History Medical History: Medical History (Last Updated 05/24/18 @ 17:35 by Fiorella Arechiga) COPD (chronic obstructive pulmonary disease) Coronary artery disease HTN (hypertension) History of CVA (cerebrovascular accident) without residual deficits Peripheral vascular disease - Surgical History Surgical History: Surgical History (Last Updated 05/24/18 @ 17:36 by Fiorella Arechiga) H/O jilwi-pufgq-jqblezy bypass History of tonsillectomy S/P triple vessel bypass - Family History Family History: Family History (Last Updated 05/24/18 @ 17:36 by Fiorella Arechiga) Father Heart disease - Tobacco History Smoking Status: Former smoker - Alcohol History How Often Do You Have a Drink Containing Alcohol: 2 to 4 times a month - Substance Use History Substance History: No History of Abuse - Travel History Recent Travel in the [place] Within the Last 8 Weeks: No Recent Travel Out of the Country Within the Last 8 Weeks: No - Immunization History Tetanus Immunization: Unsure Hx Influenza Vaccine This Season: Unable to Assess Medications and Allergies Active Medications: Active Medications Docusate Sodium (Colace) 100 mg PO BID PRN PRN Reason: CONSTIPATION Sodium Chloride (Ns Inj) 1,000 mls @ 84 mls/hr IV.CONT .[id number] DIMA Nitroglycerin (Nitrostat Sl) 0.4 mg SL Q5M PRN PRN Reason: CHEST PAIN Ondansetron HCl (Zofran Inj) 4 mg IV.PUSH Q6H PRN PRN Reason: NAUSEA OR VOMITING Sodium Chloride (Ns Flush) 2 ml IV.FLUSH UNSCH PRN PRN Reason: FLUSH AFTER USING IV ACCESS Sodium Chloride (Ns Inj) 2 ml IV.FLUSH UNSCH PRN PRN Reason: FLUSH AFTER USING IV ACCESS Allergies Allergy/AdvReac Type Severity Reaction Status Date / Time No Known Allergies Allergy Unverified 02/04/18 10:04 Home Medications Medication Instructions Recorded Confirmed Type alprazolam 0.25 mg PO BID PRN 05/24/18 05/24/18 History aspirin [Aspirin Low Dose] 81 mg PO DAILY 05/24/18 05/24/18 History carvedilol mg PO BID 05/24/18 History clopidogrel [Plavix] mg PO DAILY 05/24/18 History lisinopril mg PO DAILY 05/24/18 History sertraline [Zoloft] mg PO DAILY 05/24/18 History Exam Vital signs: Vital Signs 05/24/18 14:11 05/24/18 14:26 05/24/18 15:30 Temperature 97.9 F Pulse Rate 73 64 Respiratory Rate 15 Blood Pressure 191/102 H Pulse Oximetry 95 97 05/24/18 16:02 Temperature Pulse Rate 72 Respiratory Rate 16 Blood Pressure 172/94 H Pulse Oximetry 99 Intake & Output 05/23/18 05/24/18 05/24/18 18:59 06:59 18:59 Weight 56.699 kg Narrative: GENERAL: Thin WDWN male patient, in no acute distress. Slightly anxious appearing. Awake and alert. SKIN: Warm and dry. No rash. HEAD: Atraumatic. Normocephalic. EYES: Pupils equal and round. No scleral icterus. No injection or drainage. ENT: No nasal bleeding or discharge. Mucous membranes pink and moist. NECK: Trachea midline. CARDIOVASCULAR: Regular rate and rhythm. No murmur. +well healed midline sternal scar s/p CABG. RESPIRATORY: No accessory muscle use. Diminished BS. Clear to auscultation. Breath sounds equal bilaterally. GASTROINTESTINAL: Abdomen soft, non-tender, nondistended. Hepatic and splenic margins not palpable. MUSCULOSKELETAL: Extremities without clubbing, cyanosis, or edema. No obvious deformities. NEUROLOGICAL: Awake and alert. No obvious cranial nerve deficits. Motor grossly within normal limits. Able to move all extremities spontaneously. Normal speech. PSYCHIATRIC: Appropriate mood and affect; insight and judgment normal. Results - Labs CBC & Chem 7: 05/25/18 07:25 05/25/18 07:25 Labs: Laboratory Results - last 24 hr 05/24/18 05/24/18 05/24/18 14:33 14:33 14:33 WBC 10.0 RBC 4.54 Hgb 13.9 Hct 41.3 MCV 90.8 MCH 30.5 MCHC 33.6 RDW 14.8 Plt Count 230 MPV 8.4 Neut % (Auto) 65.8 Lymph % (Auto) 19.4 Davison % (Auto) 7.3 Eos % (Auto) 5.7 H Baso % (Auto) 1.8 Neut # (Auto) 6.6 Lymph # (Auto) 1.9 Davison # (Auto) 0.7 Eos # (Auto) 0.6 H Baso # (Auto) 0.2 WBC Differential . Differential Comment Auto diff final PT 9.9 INR 1.0 APTT 27.1 Sodium 139 Potassium 5.5 H Chloride 106 Carbon Dioxide 24.9 Anion Gap 8 BUN 35 H Creatinine 2.26 H Estimated GFR 29 L POC Glucose Random Glucose 113 H Calcium 8.5 Total Bilirubin 0.4 AST 18 ALT 26 Alkaline Phosphatase 86 Total Creatine Kinase Troponin I 0.03 Total Protein 8.0 Albumin 4.2 05/24/18 05/24/18 14:33 16:44 WBC RBC Hgb Hct MCV MCH MCHC RDW Plt Count MPV Neut % (Auto) Lymph % (Auto) Davison % (Auto) Eos % (Auto) Baso % (Auto) Neut # (Auto) Lymph # (Auto) Davison # (Auto) Eos # (Auto) Baso # (Auto) WBC Differential Differential Comment PT INR APTT Sodium Potassium Chloride Carbon Dioxide Anion Gap BUN Creatinine Estimated GFR POC Glucose 138 H Random Glucose Calcium Total Bilirubin AST ALT Alkaline Phosphatase Total Creatine Kinase 66 Troponin I Total Protein Albumin - Imaging Impressions Chest X-Ray 05/24/18 14:19 CONCLUSION: Hyperinflation. Caprini VTE Risk Assessment Caprini VTE Risk Assessment: Moderate/High Risk (score >= 2) Caprini Risk Assessment Model: Point Value = 1 Point Value = 2 Point Value = 3 Point Value = 5 Age 41-60 Minor surgery BMI > 25 kg/m2 Swollen legs Varicose veins or History of unexplained or recurrent spontaneous Oral contraceptives or hormone replacement Sepsis (< 1 month) Serious lung disease, including pneumonia (< 1 month) Abnormal pulmonary function Acute myocardial infarction Congestive heart failure (< 1 month) History of inflammatory bowel disease Medical patient at bed rest Age 61-74 Arthroscopic surgery Major open surgery (> 45 min) Laparoscopic surgery (> 45 min) Malignancy Confined to bed (> 72 hours) Immobilizing plaster cast Central venous access Age >= 75 History of VTE Family history of VTE Factor V Leiden Prothrombin [id number] Lupus anticoagulant Anticardiolipin antibodies Elevated serum homocysteine Heparin-induced thrombocytopenia Other congenital or acquired thrombophilia Stroke (< 1 month) Elective arthroplasty Hip, pelvis, or leg fracture Acute spinal cord injury (< 1 month) Prophylaxis Regimen: Total Risk Factor Score Risk Level Prophylaxis Regimen 0-1 Low Early ambulation 2 Moderate Order ONE of the following: *Sequential Compression Device (SCD) *Heparin 5000 units SQ BID 3-4 Higher Order ONE of the following medications: *Heparin 5000 units SQ TID *Enoxaparin/Lovenox 40 mg SQ daily (WT < 150 kg, CrCl > 30 mL/min) *Enoxaparin/Lovenox 30 mg SQ daily (WT < 150 kg, CrCl > 10-29 mL/min) *Enoxaparin/Lovenox 30 mg SQ BID (WT < 150 kg, CrCl > 30 mL/min) AND/OR *Sequential Compression Device (SCD) 5 or more Highest Order ONE of the following medications: *Heparin 5000 units SQ TID (Preferred with Epidurals) *Enoxaparin/Lovenox 40 mg SQ daily (WT < 150 kg, CrCl > 30 mL/min) *Enoxaparin/Lovenox 30 mg SQ daily (WT < 150 kg, CrCl > 10-29 mL/min) *Enoxaparin/Lovenox 30 mg SQ BID (WT < 150 kg, CrCl > 30 mL/min) AND *Sequential Compression Device (SCD) Assessment and Plan - Assessment (1) Chest pain Code(s): R07.9 - Chest pain, unspecified Status: Acute (2) Hypertension Code(s): I10 - Essential (primary) hypertension Status: Acute (3) Hyperkalemia Code(s): E87.5 - Hyperkalemia Status: Acute (4) Acute kidney injury Code(s): N17.9 - Acute kidney failure, unspecified Status: Acute - Plan 68-year-old male past medical history significant for coronary artery disease with hx of NSTEMI 01/2018 status post emergent CABG x 3 admitted with complaints of chest pain and mild nausea Chest pain in patient with known CAD s/p recent NSTEMI and emergent CABG x 3 R/O ACS patient is currently chest pain free Initial troponin 0.03 -continue to trend cardiac enzymes and EKGs -Consult patients stonecutter hand Dr. Coronel, appreciate assistance -continuous cardiac monitoring -ASA 81mg daily -BB and statin therapy -supplemental oxygen -NGT SL and/or Morphine IV prn chest pain -obtain 2D echocardiogram -give dose of Protonix for ?GI etiology -NPO p MN FAIZA Creatinine 2.26, BUN 35 -hold ACEI -IVF hydration -obtain UA -avoid nephrotoxic agents -continue to monitor kidney function closely, repeat BMP in am Hypertension, uncontrolled Likely due in part to anxiety -resume home dose of Coreg 6.25mg BID -Hold home dose of Lisinopril 2/2 hyperkalemia and FAIZA -Clonidine prn with parameters -Xanax 0.25mg po TID prn anxiety -continue to monitor BP and adjust treatment accordingly Hyperkalemia K 5.5 Given IV Calcium and insulin in the ED -repeat K level -Hold ACEI -avoid potassium containing foods COPD, not in acute exacerbation -Duonebs as needed -supplemental oxygen -continue to monitor respiratory status PVD -resume home dose of Plavix Hx of CVA and optic neuropathy postoperatively s/p CABG, possibly embolic, resolved -monitor DVT prophylaxis -bilateral SCD/OSCAR hose Code Status: FULL Discussed Condition With: patient, Dr. Segura (1) Chest pain Qualifiers: Chest pain type: unspecified Qualified Code(s): R07.9 - Chest pain, unspecified (2) Hypertension Qualifiers: Hypertension type: unspecified Qualified Code(s): I10 - Essential (primary) hypertension
[2018-05-24] MEDS: Sod Chloride 0.9% Inj 1,000 ML IV.CONT SCH (18:47)
[2018-05-24 19:54] LABS: Bilirubin,Urine Negative (Negative); Clarity,Urine Clear (Clear); Color,Urine Straw (Yellw/Straw); Glucose,Urine (UA) Negative (Negative); Leukocyte Esterase,Urine Negative (Negative); Nitrite,Urine Negative (Negative); Specific Gravity,Urine 1.008 (1.002-1.035)
[2018-05-24] MEDS: Ezetimibe 10 MG Tablet PO SCH (21:32)
--- NOTE | 2018-05-24 21:33 | ECG ---
Date Performed: 05/24/2018 Time Performed: 14:21:37 PTAGE: 68 years EKG: Sinus rhythm POSSIBLE LEFT ATRIAL ENLARGEMENT NONSPECIFIC T-WAVE ABNORMALITY BORDERLINE ECG INTERPRETATION BASED ON A DEFAULT AGE OF 89 YEARS NO PREVIOUS TRACING DOCTOR: Isac Jackson Interpretating Date/Time 05/24/2018 21:32:49
[2018-05-24] MEDS: Carvedilol 6.25 MG Tablet PO SCH (21:35)
[2018-05-24 21:50] LABS: Troponin I 0.49 ng/mL (0.02-0.05)
[2018-05-25 03:39] LABS: Troponin I 0.44 ng/mL (0.02-0.05)
[2018-05-25] MEDS: Sod Chloride 0.9% Inj 1,000 ML IV.CONT SCH (05:43)
--- NOTE | 2018-05-25 06:43 | ECG ---
Date Performed: 05/24/2018 Time Performed: 22:30:25 PTAGE: 68 years EKG: Sinus rhythm MODERATE T-WAVE ABNORMALITY, CONSIDER INFERIOR AND LATERAL ISCHEMIA ABNORMAL ECG PREVIOUS TRACING : 05/24/2018 14.21 Compared to previous tracing, inferior and lateral T wave i nversion is now present. DOCTOR: Isac Jackson Interpretating Date/Time 05/25/2018 06:42:29
--- NOTE | 2018-05-25 08:00 | ECG ---
Date Performed: 05/25/2018 Time Performed: 05:07:00 PTAGE: 68 years EKG: Sinus rhythm Lateral T wave changes are nonspecific Abnormal ECG PREVIOUS TRACING : 05/24/2018 23.06 No significant change from previous tracing noted. DOCTOR: Isac Jackson Interpretating Date/Time 05/25/2018 07:59:18
--- NOTE | 2018-05-25 08:01 | ECG ---
Date Performed: 05/24/2018 Time Performed: 23:06:34 PTAGE: 68 years EKG: Sinus rhythm Possible inferior infarct - age undetermined Lateral ST-T changes may be due to myocardial ischemia Abnormal ECG PREVIOUS TRACING : 05/24/2018 22.30 Compared to previous tracing, inferior T wave inversion has resolved. DOCTOR: Isac Jackson Interpretating Date/Time 05/25/2018 08:00:20
[2018-05-25 08:32] LABS: Baso # (Auto) 0.2 th/mm3 (0.0-0.2); Baso % (Auto) 2.2 % (0.0-2.0); Eos # (Auto) 0.7 th/mm3 (0.0-0.4); Eos % (Auto) 6.8 % (0.0-4.0); Hemoglobin 12.9 gm/dL (13.0-17.0); Lymph # (Auto) 2.2 th/mm3 (1.0-4.8); Lymph % (Auto) 22.4 % (9.0-44.0); Mean Corpuscular HGB Conc 33.9 % (32.0-36.0); Mean Corpuscular Hemoglobin 30.6 pg (27.0-34.0); Mean Corpuscular Volume 90.3 fL (80.0-100.0); Mean Platelet Volume 8.3 fL (7.0-11.0); Mono # (Auto) 0.9 th/mm3 (0.0-0.9); Mono % (Auto) 8.6 % (0.0-8.0); Neut # (Auto) 5.9 th/mm3 (1.8-7.7); Platelet Count 218 th/mm3 (150-450); White Blood Count 9.8 th/mm3 (4.0-11.0)
[2018-05-25] MEDS: Ezetimibe 10 MG Tablet PO SCH (08:36)
[2018-05-25] MEDS: Sertraline 50 MG Tablet PO SCH (08:37)
[2018-05-25] MEDS: Carvedilol 6.25 MG Tablet PO SCH ×2 (08:38→21:36)
[2018-05-25] MEDS: ALPRAZolam 0.25 MG Tablet PO PRN ×2 (08:51→21:42)
[2018-05-25 09:00] LABS: Potassium 5.7 meq/L (3.5-5.1)
[2018-05-25 09:12] LABS: Chol/HDL Ratio 2.51 Ratio; HDL Cholesterol 45.7 mg/dL (40.0-60.0); Thyroid Stimulating Hormone 0.605 uIU/mL (0.358-3.740); Troponin I 0.31 ng/mL (0.02-0.05)
--- NOTE | 2018-05-25 10:30 | P.CONCA ---
History of Present Illness Service: Cardiology Reason for Consult: Chest pain Primary Care Provider: JOHN Estrella Chief Complaint: Chest pain History of Present Illness: Pleasant 68-year-old male known to our practice with a past medical history of ASHD with CABG 21 jan 2018 with perioperative complications involving CVA. He reports that yesterday he had mid upper back pain that radiated to his chest pain lasted greater than 3 hours, girlfriend brought him to ER. Upon exam today he denies any cardiac complaints no chest pain shortness of breath dizziness. Blood pressure is elevated, creatinine was 2.26 yesterday 1.93 this a.m. troponin went up to 0.49. Review of Systems All other systems reviewed negative except as stated in HPI [facility] - History History Provided By: Patient - Medical History Medical History: Medical History (Last Updated 05/24/18 @ 18:56 by Karina Garcia RN) History of CVA (cerebrovascular accident) without residual deficits (Acute) COPD (chronic obstructive pulmonary disease) (Acute) Peripheral vascular disease (Acute) Coronary artery disease (Acute) HTN (hypertension) (Acute) - Surgical History Surgical History: Surgical History (Last Reviewed 05/24/18 @ 18:56 by Karina Garcia RN) H/O neeik-rkwzu-[id number] bypass (Acute) History of tonsillectomy (Acute) S/P triple vessel bypass (Acute) - Family History Family History: Family History (Last Reviewed 05/24/18 @ 18:56 by Karina Garcia RN) Father Heart disease - Tobacco History Second Hand Smoke Exposure: No Tobacco Use In Past 30 Days: No Smoking Status: Former smoker Tobacco Type: Cigarettes - Alcohol History How Often Do You Have a Drink Containing Alcohol: Monthly or less - Substance Use History Substance History: No History of Abuse - Travel History Recent Travel in the [place] Within the Last 8 Weeks: No Recent Travel Out of the Country Within the Last 8 Weeks: No - Immunization History Tetanus Immunization: Unsure Hx Influenza Vaccine This Season: Unable to Assess Medications and Allergies Active Medications: Active Medications Albuterol (Duoneb Neb (Prn)) 1 ampul NEB Q6HR NEB PRN PRN Reason: SHORTNESS OF BREATH/WHEEZING Alprazolam (Xanax) 0.25 mg PO Q8H PRN PRN Reason: ANXIETY Last Admin: 05/25/18 08:51 Dose: 0.25 mg Aspirin (Ecotrin) 81 mg PO DAILY [facility] Last Admin: 05/25/18 08:38 Dose: 81 mg Atorvastatin Calcium (Lipitor) 40 mg PO HS [facility] Last Admin: 05/24/18 21:31 Dose: Not Given Carvedilol (Coreg) 6.25 mg PO BID [facility] Last Admin: 05/25/18 08:38 Dose: 6.25 mg Clonidine HCl (Catapres) 0.1 mg PO Q6H PRN PRN Reason: SBP>180, DBP>95 Clopidogrel Bisulfate (Plavix) 75 mg PO DAILY [facility] Last Admin: 05/25/18 08:37 Dose: 75 mg Docusate Sodium (Colace) 100 mg PO BID PRN PRN Reason: CONSTIPATION Ezetimibe (Zetia) 10 mg PO DAILY [facility] Last Admin: 05/25/18 08:36 Dose: 10 mg Sodium Chloride (Ns Inj) 1,000 mls @ 84 mls/hr IV.CONT .[id number] [facility] Last Admin: 05/25/18 05:43 Dose: 84 mls/hr Morphine Sulfate (Morphine Inj) 2 mg IV.PUSH Q3H PRN PRN Reason: CHEST PAIN Nitroglycerin (Nitrostat Sl) 0.4 mg SL Q5M PRN PRN Reason: CHEST PAIN Ondansetron HCl (Zofran Inj) 4 mg IV.PUSH Q6H PRN PRN Reason: NAUSEA OR VOMITING Pantoprazole Sodium (Protonix) 40 mg PO DAILY [facility] Last Admin: 05/25/18 08:37 Dose: Not Given Sertraline HCl (Zoloft) 50 mg PO DAILY [facility] Last Admin: 05/25/18 08:37 Dose: 50 mg Sodium Chloride (Ns Flush) 2 ml IV.FLUSH UNSCH PRN PRN Reason: FLUSH AFTER USING IV ACCESS Sodium Chloride (Ns Inj) 2 ml IV.FLUSH UNSCH PRN PRN Reason: FLUSH AFTER USING IV ACCESS Sodium Polystyrene Sulfonate (Kayexalate Liq) 15 gm PO ONCE ONE Stop: 05/25/18 09:57 Allergies Allergy/AdvReac Type Severity Reaction Status Date / Time No Known Allergies Allergy Unverified 02/04/18 10:04 Home Medications Medication Instructions Recorded Confirmed Type alprazolam 0.25 mg PO BID PRN 05/24/18 05/24/18 History aspirin [Aspirin Low Dose] 81 mg PO DAILY 05/24/18 05/24/18 History carvedilol mg PO BID 05/24/18 History clopidogrel [Plavix] mg PO DAILY 05/24/18 History lisinopril mg PO DAILY 05/24/18 History sertraline [Zoloft] mg PO DAILY 05/24/18 History Exam Vital signs: Vital Signs 05/24/18 14:11 05/24/18 14:26 05/24/18 15:30 Temperature 97.9 F Pulse Rate 73 64 Respiratory Rate 15 Blood Pressure 191/102 H Pulse Oximetry 95 97 05/24/18 16:02 05/24/18 16:51 05/24/18 20:00 Temperature 97.3 F L 97.8 F Pulse Rate 72 77 79 Respiratory Rate 16 18 19 Blood Pressure 172/94 H 161/94 H 129/81 Pulse Oximetry 99 99 96 05/24/18 21:44 05/24/18 23:59 05/25/18 00:00 Temperature 97.8 F Pulse Rate 73 72 68 Respiratory Rate 18 Blood Pressure 139/79 Pulse Oximetry 96 05/25/18 04:00 05/25/18 04:23 05/25/18 08:00 Temperature 97.8 F 97.5 F L Pulse Rate 81 77 88 Respiratory Rate 18 20 Blood Pressure 154/83 H 190/103 H Pulse Oximetry 95 97 05/25/18 09:56 Temperature Pulse Rate Respiratory Rate Blood Pressure 189/100 H Pulse Oximetry Intake & Output 05/24/18 05/25/18 05/25/18 18:59 06:59 18:59 Intake Total 1000 / 1000 1120 / 1120 Output Total 400 / 400 250 / 250 Balance 1000 / 1000 720 / 720 -250 / -250 Weight 56.699 kg 56.7 kg Intake: IV 1000 / 1000 1000 / 1000 NS Inj 1,000 ML @ 84 mls/hr IV. 1000 / 1000 CONT .[id number] [facility] Rx#:[id number] NS Inj 1,000 ML @ Wide Open IV. 1000 / 1000 SIG BOLUS ONE Rx#:[id number] Oral 120 / 120 Output: Urine 400 / 400 250 / 250 Other: Date of Last Bowel Movement 05/24/18 - Constitutional no acute distress - Routine HEENT Exam Head: Present: normocephalic, atraumatic Eye: Present: PERRL ENT: Present: mucous membranes moist - Routine Neck Exam Present: supple - Routine Respiratory Exam Present: CTA bilaterally - Routine Cardiovascular Exam Present: RRR - Routine Abdominal Exam Present: soft - Routine Skin Exam Present: intact - Routine Neurological Exam Present: alert, oriented X3 Results 05/25/18 07:25 05/25/18 07:25 Cardiac Enzymes 05/24/18 05/24/18 05/25/18 Range/Units 14:33 20:37 02:56 AST 18 (15-37) U/L Troponin I 0.03 0.49 H 0.44 H (0.02-0.05) ng/mL 05/25/18 Range/Units 07:25 AST (15-37) U/L Troponin I 0.31 H (0.02-0.05) ng/mL Coagulation 05/24/18 05/24/18 Range/Units 14:33 23:35 PT 9.9 (9.8-11.6) sec APTT 27.1 26.3 (24.3-30.1) sec Lipids 05/25/18 Range/Units 07:25 Triglycerides 103 (42-150) mg/dL Cholesterol 115 L (120-200) mg/dL HDL Cholesterol 45.7 (40.0-60.0) mg/dL Cholesterol/HDL Ratio 2.51 Ratio CBC 05/24/18 05/25/18 Range/Units 14:33 07:25 WBC 10.0 9.8 (4.0-11.0) th/mm3 RBC 4.54 4.20 L (4.50-5.90) mil/mm3 Hgb 13.9 12.9 L (13.0-17.0) gm/dL Hct 41.3 38.0 L (39.0-51.0) % Plt Count 230 218 (150-450) th/mm3 Neut # (Auto) 6.6 5.9 (1.8-7.7) th/mm3 Lymph # (Auto) 1.9 2.2 (1.0-4.8) th/mm3 Smith # (Auto) 0.7 0.9 (0.0-0.9) th/mm3 Eos # (Auto) 0.6 H 0.7 H (0.0-0.4) th/mm3 Baso # (Auto) 0.2 0.2 (0.0-0.2) th/mm3 Comprehensive Metabolic Panel 05/24/18 05/24/18 05/25/18 Range/Units 14:33 17:20 07:25 Sodium 139 143 (136-145) meq/L Potassium 5.5 H 5.0 5.7 H (3.5-5.1) meq/L Chloride 106 114 H D (98-107) meq/L Carbon Dioxide 24.9 23.0 (21.0-32.0) meq/L BUN 35 H 29 H (7-18) mg/dL Creatinine 2.26 H 1.93 H (0.60-1.30) mg/dL Calcium 8.5 8.0 L (8.5-10.1) mg/dL AST 18 (15-37) U/L ALT 26 (12-78) U/L Alkaline Phosphatase 86 (45-117) U/L Total Protein 8.0 (6.4-8.2) g/dL Albumin 4.2 (3.4-5.0) g/dL Intake and Output 05/24/18 05/25/18 05/25/18 22:59 06:59 14:59 Intake Total 1000 / 1000 1120 / 1120 Output Total 400 / 400 250 / 250 Balance 1000 / 1000 720 / 720 -250 / -250 Intake: IV 1000 / 1000 1000 / 1000 NS Inj 1,000 ML @ 84 mls/hr IV. 1000 / 1000 CONT .[id number] [facility] Rx#:[id number] NS Inj 1,000 ML @ Wide Open IV. 1000 / 1000 SIG BOLUS ONE Rx#:[id number] Oral 120 / 120 Output: Urine 400 / 400 250 / 250 Other: Date of Last Bowel Movement 05/24/18 Weight 56.7 kg Assessment and Plan - Plan Chest pain-resolved HTN FAIZA Hyperkalemia Chest pain resolved-troponins mildly elevated 0.49, could be secondary to FAIZA. Creatinine elevated. Discussed risks of heart cath due to elevated creatinine Will add amlodipine 5mg daily Consult placed to nephrology k+ 5.7, trending up, Kayexalate ordered,
[2018-05-25] MEDS ORDERED: amLODIPine 5 MG Tablet PO SCH (11:00)
[2018-05-25] MEDS ORDERED: Sodium Polystyrene Sulfonate/Sorbitol Liq 15 GM/60 ML UDC PO ONE (11:00)
--- NOTE | 2018-05-25 12:02 | P.CONNP ---
<Irais Boogie - Last Filed: 05/25/18 12:10> History of Present Illness Service: Nephrology Consult date: 05/25/18 Reason for Consult: Acute Renal Failure Primary Care Provider: JOHN Estrella Chief Complaint: Chest pain History of Present Illness: This is a very pleasant 68 y/o male admitted for chest pain overnight. He is found to be in renal failure on arrival, creatinine 2.26, that has improved to 1.97 today. PMH includes HTN, CAD s/p recent CABG x 3, with subsequent CVA with no residual deficit. His K was elevated, he was given IV calcium, insulin, dextrose, but it has not improved, and is 5.7 currently. His BP is high, currently on IVF. He reports making urine normally. Prior to coming in he was taking Ibuprofen fairly regularly. He denies nausea/vomiting/diarrhea, hematuria , or urinary retention. We were consulted for renal management. Review of Systems All other systems reviewed negative except as stated in HPI [facility] - History History Provided By: Patient - Medical History Medical History: Medical History (Last Updated 05/24/18 @ 18:56 by Karina Garcia RN) History of CVA (cerebrovascular accident) without residual deficits (Acute) COPD (chronic obstructive pulmonary disease) (Acute) Peripheral vascular disease (Acute) Coronary artery disease (Acute) HTN (hypertension) (Acute) - Surgical History Surgical History: Surgical History (Last Reviewed 05/24/18 @ 18:56 by Karina Garcia RN) H/O wfmyl-[id number]-iuhkrfk bypass (Acute) History of tonsillectomy (Acute) S/P triple vessel bypass (Acute) - Family History Family History: Family History (Last Reviewed 05/24/18 @ 18:56 by Karina Garcia RN) Father Heart disease - Tobacco History Second Hand Smoke Exposure: No Tobacco Use In Past 30 Days: No Smoking Status: Former smoker Tobacco Type: Cigarettes - Alcohol History How Often Do You Have a Drink Containing Alcohol: Monthly or less - Substance Use History Substance History: No History of Abuse - Travel History Recent Travel in the [place] Within the Last 8 Weeks: No Recent Travel Out of the Country Within the Last 8 Weeks: No - Immunization History Tetanus Immunization: Unsure Hx Influenza Vaccine This Season: Unable to Assess Medications and Allergies Allergies Allergy/AdvReac Type Severity Reaction Status Date / Time No Known Allergies Allergy Unverified 02/04/18 10:04 Home Medications Medication Instructions Recorded Confirmed Type alprazolam 0.25 mg PO BID PRN 05/24/18 05/24/18 History aspirin [Aspirin Low Dose] 81 mg PO DAILY 05/24/18 05/24/18 History carvedilol mg PO BID 05/24/18 History clopidogrel [Plavix] mg PO DAILY 05/24/18 History lisinopril mg PO DAILY 05/24/18 History sertraline [Zoloft] mg PO DAILY 05/24/18 History Active Medications: Active Medications Albuterol (Duoneb Neb (Prn)) 1 ampul NEB Q6HR NEB PRN PRN Reason: SHORTNESS OF BREATH/WHEEZING Alprazolam (Xanax) 0.25 mg PO Q8H PRN PRN Reason: ANXIETY Last Admin: 05/25/18 08:51 Dose: 0.25 mg Amlodipine Besylate (Norvasc) 5 mg PO DAILY [facility] Last Admin: 05/25/18 11:40 Dose: 5 mg Aspirin (Ecotrin) 81 mg PO DAILY [facility] Last Admin: 05/25/18 08:38 Dose: 81 mg Atorvastatin Calcium (Lipitor) 40 mg PO HS [facility] Last Admin: 05/24/18 21:31 Dose: Not Given Carvedilol (Coreg) 6.25 mg PO BID [facility] Last Admin: 05/25/18 08:38 Dose: 6.25 mg Clonidine HCl (Catapres) 0.1 mg PO Q6H PRN PRN Reason: SBP>180, DBP>95 Clopidogrel Bisulfate (Plavix) 75 mg PO DAILY [facility] Last Admin: 05/25/18 08:37 Dose: 75 mg Docusate Sodium (Colace) 100 mg PO BID PRN PRN Reason: CONSTIPATION Ezetimibe (Zetia) 10 mg PO DAILY [facility] Last Admin: 05/25/18 08:36 Dose: 10 mg Sodium Chloride (Ns Inj) 1,000 mls @ 84 mls/hr IV.CONT .[id number] [facility] Last Admin: 05/25/18 05:43 Dose: 84 mls/hr Morphine Sulfate (Morphine Inj) 2 mg IV.PUSH Q3H PRN PRN Reason: CHEST PAIN Nitroglycerin (Nitrostat Sl) 0.4 mg SL Q5M PRN PRN Reason: CHEST PAIN Ondansetron HCl (Zofran Inj) 4 mg IV.PUSH Q6H PRN PRN Reason: NAUSEA OR VOMITING Pantoprazole Sodium (Protonix) 40 mg PO DAILY [facility] Last Admin: 05/25/18 08:37 Dose: Not Given Sertraline HCl (Zoloft) 50 mg PO DAILY [facility] Last Admin: 05/25/18 08:37 Dose: 50 mg Sodium Chloride (Ns Flush) 2 ml IV.FLUSH UNSCH PRN PRN Reason: FLUSH AFTER USING IV ACCESS Sodium Chloride (Ns Inj) 2 ml IV.FLUSH UNSCH PRN PRN Reason: FLUSH AFTER USING IV ACCESS Exam Vital signs: Vital Signs 05/24/18 14:11 05/24/18 14:26 05/24/18 15:30 Temperature 97.9 F Pulse Rate 73 64 Respiratory Rate 15 Blood Pressure 191/102 H Pulse Oximetry 95 97 05/24/18 16:02 05/24/18 16:51 05/24/18 20:00 Temperature 97.3 F L 97.8 F Pulse Rate 72 77 79 Respiratory Rate 16 18 19 Blood Pressure 172/94 H 161/94 H 129/81 Pulse Oximetry 99 99 96 05/24/18 21:44 05/24/18 23:59 05/25/18 00:00 Temperature 97.8 F Pulse Rate 73 72 68 Respiratory Rate 18 Blood Pressure 139/79 Pulse Oximetry 96 05/25/18 04:00 05/25/18 04:23 05/25/18 08:00 Temperature 97.8 F 97.5 F L Pulse Rate 81 77 88 Respiratory Rate 18 20 Blood Pressure 154/83 H 190/103 H Pulse Oximetry 95 97 05/25/18 09:00 05/25/18 09:56 Temperature Pulse Rate 87 Respiratory Rate Blood Pressure 189/100 H Pulse Oximetry Intake & Output 05/24/18 05/25/18 05/25/18 18:59 06:59 18:59 Intake Total 1000 / 1000 1120 / 1120 Output Total 400 / 400 250 / 250 Balance 1000 / 1000 720 / 720 -250 / -250 Weight 56.699 kg 56.7 kg Intake: IV 1000 / 1000 1000 / 1000 NS Inj 1,000 ML @ 84 mls/hr IV. 1000 / 1000 CONT .[id number] Rx#:[id number] NS Inj 1,000 ML @ Wide Open IV. 1000 / 1000 SIG BOLUS ONE Rx#:[id number] Oral 120 / 120 Output: Urine 400 / 400 250 / 250 Other: Date of Last Bowel Movement 05/24/18 - Constitutional no acute distress, average body habitus, cooperative - Routine HEENT Exam Head: Present: normocephalic ENT: Present: mucous membranes moist - Routine Neck Exam Present: supple - Routine Respiratory Exam Present: CTA bilaterally. Absent: accessory muscle use - Routine Cardiovascular Exam Present: RRR, S1, S2 - Routine Abdominal Exam Present: soft, normoactive bowel sounds - Routine Extremities Exam Present: full ROM, pulses intact. Absent: edema - Routine Skin Exam Present: intact, dry, warm - Routine Neurological Exam Present: alert, oriented X3, CN II-XII intact, moving all extremities Results - Lab Results 05/25/18 07:25 05/25/18 07:25 Most recent lab results Calcium 8.0 mg/dL (8.5-10.1) L 05/25/18 07:25 - Image Kidney/bladder ultrasound: pending Assessment and Plan - Assessment (1) Acute kidney injury Code(s): N17.9 - Acute kidney failure, unspecified Status: Acute Plan: Baseline creatinine 1.2 FAIZA possibly due to dehydration, possible ACS. He was also taking NSAIDs. He is non oliguric, UA unremarkable. Renal US ordered, pending. Treat hyperkalemia as below. Stop IVF. Tolerating PO. Avoid nephrotoxins, medications reviewed. Follow renal profile, currently improving. (2) Hyperkalemia Code(s): E87.5 - Hyperkalemia Status: Acute Plan: Due to reduction in GFR and taking lisinopril Given Kayexalate. Ordered IV insulin and dextrose. Repeat labs later today. Low K diet ordered. (3) Hypertension Code(s): I10 - Essential (primary) hypertension Status: Acute Plan: Stop IVF. Hold lisinopril given FAIZA. Increase amlodipine. He feels it is due to anxiety, normotensive most of the time. (4) Chest pain Code(s): R07.9 - Chest pain, unspecified Status: Acute Plan: Cardiology following, do not feel it is ACS. Slightly elevated troponin in setting of FAIZA. Monitor. <Tim Palomino - Last Filed: 05/25/18 20:43> History of Present Illness Primary Care Provider: JOHN Estrella [facility] - Medical History Medical History: Medical History (Last Updated 05/24/18 @ 18:56 by Karina Garcia, ESTEFANIA) History of CVA (cerebrovascular accident) without residual deficits (Acute) COPD (chronic obstructive pulmonary disease) (Acute) Peripheral vascular disease (Acute) Coronary artery disease (Acute) HTN (hypertension) (Acute) - Surgical History Surgical History: Surgical History (Last Reviewed 05/24/18 @ 18:56 by Karina Garcia RN) H/O ecuwi-gtbal-gxfofvw bypass (Acute) History of tonsillectomy (Acute) S/P triple vessel bypass (Acute) - Family History Family History: Family History (Last Reviewed 05/24/18 @ 18:56 by Karina Garcia RN) Father Heart disease Medications and Allergies Active Medications: Active Medications Albuterol (Duoneb Neb (Prn)) 1 ampul NEB Q15M PRN PRN Reason: SHORTNESS OF BREATH/WHEEZING Last Admin: 05/25/18 16:04 Dose: 1 ampul Alprazolam (Xanax) 0.25 mg PO Q8H PRN PRN Reason: ANXIETY Last Admin: 05/25/18 08:51 Dose: 0.25 mg Amlodipine Besylate (Norvasc) 10 mg PO DAILY [facility] Aspirin (Ecotrin) 81 mg PO DAILY [facility] Last Admin: 05/25/18 08:38 Dose: 81 mg Atorvastatin Calcium (Lipitor) 40 mg PO HS [facility] Last Admin: 05/24/18 21:31 Dose: Not Given Carvedilol (Coreg) 6.25 mg PO BID [facility] Last Admin: 05/25/18 08:38 Dose: 6.25 mg Clonidine HCl (Catapres) 0.1 mg PO Q6H PRN PRN Reason: SBP>180, DBP>95 Clopidogrel Bisulfate (Plavix) 75 mg PO DAILY [facility] Last Admin: 05/25/18 08:37 Dose: 75 mg Docusate Sodium (Colace) 100 mg PO BID PRN PRN Reason: CONSTIPATION Ezetimibe (Zetia) 10 mg PO DAILY [facility] Last Admin: 05/25/18 08:36 Dose: 10 mg Morphine Sulfate (Morphine Inj) 2 mg IV.PUSH Q3H PRN PRN Reason: CHEST PAIN Nitroglycerin (Nitrostat Sl) 0.4 mg SL Q5M PRN PRN Reason: CHEST PAIN Ondansetron HCl (Zofran Inj) 4 mg IV.PUSH Q6H PRN PRN Reason: NAUSEA OR VOMITING Pantoprazole Sodium (Protonix) 40 mg PO DAILY [facility] Last Admin: 05/25/18 08:37 Dose: Not Given Sertraline HCl (Zoloft) 50 mg PO DAILY [facility] Last Admin: 05/25/18 08:37 Dose: 50 mg Sodium Chloride (Ns Flush) 2 ml IV.FLUSH UNSCH PRN PRN Reason: FLUSH AFTER USING IV ACCESS Sodium Chloride (Ns Inj) 2 ml IV.FLUSH UNSCH PRN PRN Reason: FLUSH AFTER USING IV ACCESS Exam Vital signs: Vital Signs 05/24/18 21:44 05/24/18 23:59 05/25/18 00:00 Temperature 97.8 F Pulse Rate 73 72 68 Respiratory Rate 18 Blood Pressure 139/79 Pulse Oximetry 96 05/25/18 04:00 05/25/18 04:23 05/25/18 08:00 Temperature 97.8 F 97.5 F L Pulse Rate 81 77 88 Respiratory Rate 18 20 Blood Pressure 154/83 H 190/103 H Pulse Oximetry 95 97 05/25/18 09:00 05/25/18 09:56 05/25/18 12:00 Temperature 98.3 F Pulse Rate 87 87 Respiratory Rate 20 Blood Pressure 189/100 H 167/87 H Pulse Oximetry 97 05/25/18 14:25 05/25/18 16:00 05/25/18 16:08 Temperature 98.1 F Pulse Rate 89 82 Respiratory Rate 20 16 Blood Pressure 152/80 H Pulse Oximetry 93 L 97 98 Intake & Output 05/25/18 05/25/18 05/26/18 06:59 18:59 06:59 Intake Total 1120 / 1120 600 / 600 Output Total 400 / 400 550 / 550 Balance 720 / 720 50 / 50 Weight 56.7 kg Intake: IV 1000 / 1000 600 / 600 NS Inj 1,000 ML @ 84 mls/hr IV. 1000 / 1000 600 / 600 CONT .[id number] [facility] Rx#:[id number] Oral 120 / 120 Output: Urine 400 / 400 550 / 550 Other: Date of Last Bowel Movement 05/24/18 Results - Lab Results 05/25/18 07:25 05/25/18 07:25 Most recent lab results Calcium 8.0 mg/dL (8.5-10.1) L 05/25/18 07:25 Assessment and Plan - Assessment (1) Acute kidney injury Code(s): N17.9 - Acute kidney failure, unspecified Status: Acute (2) Hyperkalemia Code(s): E87.5 - Hyperkalemia Status: Acute (3) Hypertension Code(s): I10 - Essential (primary) hypertension Status: Acute (4) Chest pain Code(s): R07.9 - Chest pain, unspecified Status: Acute - Attending Attestation patient was seen and examined. Acute on CKD. Avoid NSAIDs. Repeat potassium level. Hyperkalemia had improved, repeat level is pending. Medically treated. Renal function also is improving. Agree with above assessment and plan. <Irais Boogie - Last Filed: 05/25/18 12:10> (3) Hypertension Qualifiers: Hypertension type: unspecified Qualified Code(s): I10 - Essential (primary) hypertension (4) Chest pain Qualifiers: Chest pain type: unspecified Qualified Code(s): R07.9 - Chest pain, unspecified <Tim Palomino - Last Filed: 05/25/18 20:43> (3) Hypertension Qualifiers: Hypertension type: unspecified Qualified Code(s): I10 - Essential (primary) hypertension (4) Chest pain Qualifiers: Chest pain type: unspecified Qualified Code(s): R07.9 - Chest pain, unspecified
--- NOTE | 2018-05-25 13:22 | P.PNIM ---
Subjective Interval history: Feeling all right. Had an accident with loose stool likely secondary to Kayexalate, just prior to my exam. He cleaned it up himself and is now short of breath, although the shortness of breath improves during her exam.. Denies any chest pain. He requests albuterol which she takes at home. Physical Exam Vital signs: Vital Signs 05/24/18 14:11 05/24/18 14:26 05/24/18 15:30 Temperature 97.9 F Pulse Rate 73 64 Respiratory Rate 15 Blood Pressure 191/102 H Pulse Oximetry 95 97 05/24/18 16:02 05/24/18 16:51 05/24/18 20:00 Temperature 97.3 F L 97.8 F Pulse Rate 72 77 79 Respiratory Rate 16 18 19 Blood Pressure 172/94 H 161/94 H 129/81 Pulse Oximetry 99 99 96 05/24/18 21:44 05/24/18 23:59 05/25/18 00:00 Temperature 97.8 F Pulse Rate 73 72 68 Respiratory Rate 18 Blood Pressure 139/79 Pulse Oximetry 96 05/25/18 04:00 05/25/18 04:23 05/25/18 08:00 Temperature 97.8 F 97.5 F L Pulse Rate 81 77 88 Respiratory Rate 18 20 Blood Pressure 154/83 H 190/103 H Pulse Oximetry 95 97 05/25/18 09:00 05/25/18 09:56 Temperature Pulse Rate 87 Respiratory Rate Blood Pressure 189/100 H Pulse Oximetry Intake & Output 05/24/18 05/25/18 05/25/18 18:59 06:59 18:59 Intake Total 1000 / 1000 1120 / 1120 Output Total 400 / 400 250 / 250 Balance 1000 / 1000 720 / 720 -250 / -250 Weight 56.699 kg 56.7 kg Intake: IV 1000 / 1000 1000 / 1000 NS Inj 1,000 ML @ 84 mls/hr IV. 1000 / 1000 CONT .[id number] Rx#:[id number] NS Inj 1,000 ML @ Wide Open IV. 1000 / 1000 SIG BOLUS ONE Rx#:[id number] Oral 120 / 120 Output: Urine 400 / 400 250 / 250 Other: Date of Last Bowel Movement 05/24/18 Narrative: GENERAL: Patient sitting up in bed. Short of breath at the beginning of exam, this improves during exam. SKIN: Warm and dry. HEAD: Normocephalic. EYES: No scleral icterus. No injection or drainage. NECK: Supple, trachea midline. No JVD or lymphadenopathy. CARDIOVASCULAR: Regular rate and rhythm without murmurs, gallops, or rubs. RESPIRATORY: Breath sounds equal bilaterally. No accessory muscle use. Slight wheeze bilaterally. No rhonchi. GASTROINTESTINAL: Abdomen soft, non-tender, nondistended. MUSCULOSKELETAL: No cyanosis, or edema. BACK: Nontender without obvious deformity. No CVA tenderness. Results - Labs CBC & Chem 7: 05/25/18 07:25 05/25/18 07:25 Laboratory Results - last 24 hr 05/24/18 05/24/18 05/24/18 14:33 14:33 14:33 WBC 10.0 RBC 4.54 Hgb 13.9 Hct 41.3 MCV 90.8 MCH 30.5 MCHC 33.6 RDW 14.8 Plt Count 230 MPV 8.4 Neut % (Auto) 65.8 Lymph % (Auto) 19.4 [place] % (Auto) 7.3 Eos % (Auto) 5.7 H Baso % (Auto) 1.8 Neut # (Auto) 6.6 Lymph # (Auto) 1.9 [place] # (Auto) 0.7 Eos # (Auto) 0.6 H Baso # (Auto) 0.2 WBC Differential . Differential Comment Auto diff final PT 9.9 INR 1.0 APTT 27.1 Sodium 139 Potassium 5.5 H Chloride 106 Carbon Dioxide 24.9 Anion Gap 8 BUN 35 H Creatinine 2.26 H Estimated GFR 29 L POC Glucose Random Glucose 113 H Calcium 8.5 Total Bilirubin 0.4 AST 18 ALT 26 Alkaline Phosphatase 86 Total Creatine Kinase Troponin I 0.03 Total Protein 8.0 Albumin 4.2 Triglycerides Cholesterol LDL Cholesterol, Calc HDL Cholesterol Cholesterol/HDL Ratio TSH Urine Color Urine Clarity Urine pH Ur Specific [place] Urine Protein Urine Glucose (UA) Urine Ketones Urine Occult Blood Urine Nitrate Urine Bilirubin Urine Urobilinogen Ur Leukocyte Esterase Urine RBC Urine WBC Micro UA Comment Ur Microscopic Review Urine Culture Comments 05/24/18 05/24/18 05/24/18 14:33 16:44 17:20 WBC RBC Hgb Hct MCV MCH MCHC RDW Plt Count MPV Neut % (Auto) Lymph % (Auto) [place] % (Auto) Eos % (Auto) Baso % (Auto) Neut # (Auto) Lymph # (Auto) [place] # (Auto) Eos # (Auto) Baso # (Auto) WBC Differential Differential Comment PT INR APTT Sodium Potassium 5.0 Chloride Carbon Dioxide Anion Gap BUN Creatinine Estimated GFR POC Glucose 138 H Random Glucose Calcium Total Bilirubin AST ALT Alkaline Phosphatase Total Creatine Kinase 66 Troponin I Total Protein Albumin Triglycerides Cholesterol LDL Cholesterol, Calc HDL Cholesterol Cholesterol/HDL Ratio TSH Urine Color Urine Clarity Urine pH Ur Specific [place] Urine Protein Urine Glucose (UA) Urine Ketones Urine Occult Blood Urine Nitrate Urine Bilirubin Urine Urobilinogen Ur Leukocyte Esterase Urine RBC Urine WBC Micro UA Comment Ur Microscopic Review Urine Culture Comments 05/24/18 05/24/18 05/24/18 19:16 20:37 23:35 WBC RBC Hgb Hct MCV MCH MCHC RDW Plt Count MPV Neut % (Auto) Lymph % (Auto) [place] % (Auto) Eos % (Auto) Baso % (Auto) Neut # (Auto) Lymph # (Auto) [place] # (Auto) Eos # (Auto) Baso # (Auto) WBC Differential Differential Comment PT INR APTT 26.3 Sodium Potassium Chloride Carbon Dioxide Anion Gap BUN Creatinine Estimated GFR POC Glucose Random Glucose Calcium Total Bilirubin AST ALT Alkaline Phosphatase Total Creatine Kinase 61 Troponin I 0.49 H Total Protein Albumin Triglycerides Cholesterol LDL Cholesterol, Calc HDL Cholesterol Cholesterol/HDL Ratio TSH Urine Color Straw Urine Clarity Clear Urine pH 5.[address] [place] 1.008 Urine Protein Negative Urine Glucose (UA) Negative Urine Ketones Negative Urine Occult Blood Negative Urine Nitrate Negative Urine Bilirubin Negative Urine Urobilinogen Less than 2 Ur Leukocyte Esterase Negative Urine RBC Less than 1 Urine WBC 1 Micro UA Comment Culture not ind Ur Microscopic Review Not Reportable Urine Culture Comments Culture not ind 05/25/18 05/25/18 05/25/18 02:56 07:25 07:25 WBC 9.8 RBC 4.20 L Hgb 12.9 L Hct 38.0 L MCV 90.3 MCH 30.6 MCHC 33.9 RDW 15.0 Plt Count 218 MPV 8.3 Neut % (Auto) 60.0 Lymph % (Auto) 22.4 [place] % (Auto) 8.6 H Eos % (Auto) 6.8 H Baso % (Auto) 2.2 H Neut # (Auto) 5.9 Lymph # (Auto) 2.2 [place] # (Auto) 0.9 Eos # (Auto) 0.7 H Baso # (Auto) 0.2 WBC Differential . Differential Comment Auto diff final PT INR APTT Sodium 143 Potassium 5.7 H Chloride 114 H D Carbon Dioxide 23.0 Anion Gap 6 BUN 29 H Creatinine 1.93 H Estimated GFR 35 L POC Glucose Random Glucose 80 Calcium 8.0 L Total Bilirubin AST ALT Alkaline Phosphatase Total Creatine Kinase 60 65 Troponin I 0.44 H 0.31 H Total Protein Albumin Triglycerides 103 Cholesterol 115 L LDL Cholesterol, Calc 49 HDL Cholesterol 45.7 Cholesterol/HDL Ratio 2.51 TSH 0.605 Urine Color Urine Clarity Urine pH Ur Specific [place] Urine Protein Urine Glucose (UA) Urine Ketones Urine Occult Blood Urine Nitrate Urine Bilirubin Urine Urobilinogen Ur Leukocyte Esterase Urine RBC Urine WBC Micro UA Comment Ur Microscopic Review Urine Culture Comments - Imaging Impressions Chest X-Ray 05/24/18 14:19 CONCLUSION: Hyperinflation. Assessment and Plan - Assessment (1) Chest pain Code(s): R07.9 - Chest pain, unspecified Status: Acute (2) Hypertension Code(s): I10 - Essential (primary) hypertension Status: Acute (3) Hyperkalemia Code(s): E87.5 - Hyperkalemia Status: Acute (4) Acute kidney injury Code(s): N17.9 - Acute kidney failure, unspecified Status: Acute - Plan 68-year-old male past medical history significant for coronary artery disease with hx of NSTEMI 01/2018 status post emergent CABG x 3 admitted with complaints of chest pain and mild nausea //Chest pain in patient with known CAD s/p recent NSTEMI and emergent CABG x 3 //R/O ACS patient is currently chest pain free Initial troponin 0.03 -continue to trend cardiac enzymes and EKGs -Consult patients informaticist Dr. Coronel, appreciate assistance -continuous cardiac monitoring -ASA 81mg daily -BB and statin therapy -supplemental oxygen -NGT SL and/or Morphine IV prn chest pain -obtain 2D echocardiogram -give dose of Protonix for ?GI etiology -NPO p MN = Appreciate cardiology assistance. Chest pain has improved. Troponin could be secondary to [place] I. Jacinta monitor. //FAIZA //Creatinine 2.26, BUN 35 -hold ACEI -IVF hydration -obtain UA -avoid nephrotoxic agents -continue to monitor kidney function closely, repeat BMP in am = 9/4. Creatinine improving 1.9. Appreciate nephrology assistance. //Hypertension, uncontrolled //Likely due in part to anxiety -resume home dose of Coreg 6.25mg BID -Hold home dose of Lisinopril 2/2 hyperkalemia and FAIZA -Clonidine prn with parameters -Xanax 0.25mg po TID prn anxiety -continue to monitor BP and adjust treatment accordingly = 05/25. Blood pressure variable. Amlodipine adjusted by nephrology. Continue to monitor. //Hyperkalemia K 5.5 Given IV Calcium and insulin in the ED -repeat K level -Hold ACEI -avoid potassium containing foods = 05/25. Potassium 5.7. Appreciate nephrology assistance. //COPD, not in acute exacerbation -Duonebs as needed -supplemental oxygen -continue to monitor respiratory status = Some shortness of breath after cleaning of the floor. Restart duo nebs. 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 Segura Discussed Condition With: Patient, nurse. Discharge Planning: Hopefully home in the next 1-2 days if cleared by cardiology and nephrology. (1) Chest pain Qualifiers: Chest pain type: unspecified Qualified Code(s): R07.9 - Chest pain, unspecified (2) Hypertension Qualifiers: Hypertension type: unspecified Qualified Code(s): I10 - Essential (primary) hypertension
[2018-05-25 16:00] LABS: Hemoglobin A1c 6.2 % (4.3-6.0)
--- NOTE | 2018-05-25 17:00 | US ---
EXAM DATE: 05/25/2018 4:49 PM EDT AGE/SEX: 68 years / Male INDICATIONS: Increased BUN/Creat nine. CLINICAL DATA: This is the patient's initial encounter. Patient reports that signs and symptoms have been present for 1 day and indicates a pain score of 0/10. MEDICAL/SURGICAL HISTORY: Chronic obstructive pulmonary disease. Stroke. Hypertension. Coron tao artery disease. Peripheral vascular disease. Tonsillectomy. Jqdwh-wcqag-rhnmtdq bypass. COMPARISON: No prior exams available for comparison. MEASUREMENTS: Right Kidney:__9.4 x 4.3 x 4.6 cm Left Kidney:__8.9 x 4.2 x 4.8 cm FINDINGS: Right Kidney: Normal echotexture and cortical thickness. No mass or hydronephrosis. Left Kidney: Normal echotexture and cortical thickness. No mass or hydronephrosis. Bladder: Within normal limits given the degree of distension. Other: None. CONCLUSION: 1. Unremarkable bilateral renal ultrasound. Electronically signed by: Ortiz Carmona MD 05/25/2018 4:59 PM EDT
--- NOTE | 2018-05-25 17:49 | ECHRPT ---
Indication: chest pain CONCLUSIONS Normal left ventricular size. Wall thickness is normal. The left ventricular systolic function is low normal with an estimated eje ction fraction in the range of 50-55%. Trace mitral valve regurgitation. Mitral annular calcification is present. There is trace tricuspid valve regurgitation. The estimated pulmonary arterial pressure is 40 mmHg. BP: / HR: Rhythm: MEASUREMENTS (Male / Female) Normal Values Technical Quality: 2D ECHO LV Diastolic Diameter PLAX 4.6 cm 4.2 - 5.9 / 3.9 - 5.3 cm LV Systolic Diameter PLAX 3.5 cm IVS Diastolic Thickness 1.1 cm 0.6 - 1.0 / 0.6 - 0.9 cm LVPW Diastolic Thickness 1.1 cm 0.6 - 1.0 / 0.6 - 0.9 cm LV Relative Wall Thickness 0.5 RV Internal Dim ED PLAX 2.5 cm LVOT Diameter 2.2 cm Aortic Root Diameter 2.9 cm LA Systolic Diameter LX 3.3 cm 3.0 - 4.0 / 2.7 - 3.8 cm DOPPLER AV Peak Velocity 164.0 cm/s AV Peak Gradient 10.8 mmHg LVOT Peak Velocity 116.0 cm/s LVOT Peak Gradient 5.4 mmHg AV Area Cont Eq pk 2.7 cm Mitral E Point Velocity 68.6 cm/s Mitral A Point Velocity 106.0 cm/s Mitral E to A Ratio 0.6 LV E' Lateral Velocity 10.8 cm/s Mitral E to LV E' Lateral Ratio 6.4 LV E' Septal Velocity 6.8 cm/s Mitral E to LV E' Septal Ratio 10.1 TR Peak Velocity 274.0 cm/s TR Peak Gradient 30.0 mmHg Right Atrial Pressure 10.0 mmHg Pulmonary Artery Systolic Pressu 40.0 mmHg Right Ventricular Systolic Press 40.0 mmHg PV Peak Velocity 113.0 cm/s PV Peak Gradient 5.1 mmHg FINDINGS LEFT VENTRICLE Normal left ventricular size. Wall thickness is normal. The left ventricular systolic function is low normal with an estimated eje ction fraction in the range of 50-55%. RIGHT VENTRICLE Normal right ventricular size and systolic function. LEFT ATRIUM The left atrial size is normal. RIGHT ATRIUM The right atrial size is normal. ATRIAL SEPTUM Normal atrial septal thickness without atrial level shunting by limited color doppler interrogation. AORTA The aortic root and proximal ascending aorta are normal in size on limited imaging. MITRAL VALVE Trace mitral valve regurgitation. Mitral annular calcification is present. AORTIC VALVE Trileaflet aortic valve. No aortic valve stenosis or regurgitation. TRICUSPID VALVE There is trace tricuspid valve regurgitation. The estimated pulmonary arterial pressure is 40 mmHg. PULMONARY VALVE No pulmonary valve regurgitation or stenosis. VESSELS The inferior vena cava is normal in size. PERICARDIUM No pericardial effusion. Brigido Taylor MD, FACC (Electronically Signed) Final Date:25 May 2018 17:48
[2018-05-25 21:02] LABS: Albumin 3.7 g/dL (3.4-5.0); Calcium 8.4 mg/dL (8.5-10.1); Carbon Dioxide 17.8 meq/L (21.0-32.0); Phosphorus 2.8 mg/dL (2.5-4.9); Potassium 4.4 meq/L (3.5-5.1)
[2018-05-26] MEDS: Sertraline 50 MG Tablet PO SCH (08:19)
[2018-05-26] MEDS: ALPRAZolam 0.25 MG Tablet PO PRN (08:19)
[2018-05-26] MEDS: Carvedilol 6.25 MG Tablet PO SCH (08:19)
[2018-05-26] MEDS: Ezetimibe 10 MG Tablet PO SCH (08:19)
[2018-05-26] MEDS ORDERED: amLODIPine 10 MG Tablet PO SCH (09:00)
[2018-05-26 09:13] LABS: Hematocrit 40.5 % (39.0-51.0); Hemoglobin 13.7 gm/dL (13.0-17.0); Mean Corpuscular HGB Conc 33.9 % (32.0-36.0); Mean Corpuscular Hemoglobin 30.5 pg (27.0-34.0); Mean Corpuscular Volume 90.1 fL (80.0-100.0); Mean Platelet Volume 8.4 fL (7.0-11.0); Platelet Count 230 th/mm3 (150-450); White Blood Count 10.7 th/mm3 (4.0-11.0)
[2018-05-26] MEDS ORDERED: Carvedilol 12.5 MG Tablet PO SCH (09:15)
[2018-05-26] MEDS ORDERED: ISOSORBIDE DINITRATE 40 MG PO SCH (10:15)
--- NOTE | 2018-05-26 10:16 | P.PNIM ---
Subjective Interval history: Patient says he is feeling well. Says he feels like going home. Denies any chest pain or shortness of breath. Physical Exam Vital signs: Vital Signs 05/25/18 12:00 05/25/18 14:25 05/25/18 16:00 Temperature 98.3 F 98.1 F Pulse Rate 87 89 Respiratory Rate 20 20 Blood Pressure 167/87 H 152/80 H Pulse Oximetry 97 93 L 97 05/25/18 16:08 05/25/18 20:00 05/26/18 00:00 Temperature 98.2 F 97.7 F Pulse Rate 82 90 88 Respiratory Rate 16 18 18 Blood Pressure 184/88 H 163/85 H Pulse Oximetry 98 94 L 92 L 05/26/18 04:00 05/26/18 08:00 05/26/18 09:41 Temperature 98.3 F 97.7 F Pulse Rate 91 H 91 H 88 Respiratory Rate 18 16 16 Blood Pressure 171/90 H 185/103 H Pulse Oximetry 94 L 97 05/26/18 10:11 Temperature Pulse Rate Respiratory Rate Blood Pressure Pulse Oximetry 99 Intake & Output 05/25/18 05/26/18 05/26/18 18:59 06:59 18:59 Intake Total 600 / 600 0 / 0 Output Total 550 / 550 0 / 0 Balance 50 / 50 0 / 0 Weight 68.7 kg Intake: IV 600 / 600 NS Inj 1,000 ML @ 84 mls/hr IV. 600 / 600 CONT .[id number] [facility] Rx#:[id number] Oral 0 / 0 Output: Urine 550 / 550 0 / 0 Other: Date of Last Bowel Movement 05/24/18 05/25/18 Narrative: GENERAL: Patient sitting up in bed. Breathing comfortably. Appears comfortable. SKIN: Warm and dry. HEAD: Normocephalic. EYES: No scleral icterus. No injection or drainage. NECK: Supple, trachea midline. No JVD or lymphadenopathy. CARDIOVASCULAR: Regular rate and rhythm without murmurs, gallops, or rubs. RESPIRATORY: Breath sounds equal bilaterally. No accessory muscle use. No wheezing or rhonchi. GASTROINTESTINAL: Abdomen soft, non-tender, nondistended. MUSCULOSKELETAL: No cyanosis, or edema. BACK: Nontender without obvious deformity. No CVA tenderness. Results - Labs CBC & Chem 7: 05/26/18 07:30 05/25/18 19:45 Laboratory Results - last 24 hr 05/25/18 05/25/18 05/26/18 07:25 19:45 07:30 WBC 10.7 RBC 4.50 Hgb 13.7 Hct 40.5 MCV 90.1 MCH 30.5 MCHC 33.9 RDW 15.0 Plt Count 230 MPV 8.4 Sodium 141 Potassium 4.4 D Chloride 111 H Carbon Dioxide 17.8 L Anion Gap 12 BUN 26 H Creatinine 1.74 H Estimated GFR 39 L Random Glucose 104 Hemoglobin A1c 6.2 H Calcium 8.4 L Phosphorus 2.8 Albumin 3.7 Microbiology 05/25/18 13:15 Stool Stool Occult Blood (HECTOR) - Final Hemoccult negative - Imaging Impressions Abdomen/Bladder Ultrasound 05/25/18 00:00 CONCLUSION: 1. Unremarkable bilateral renal ultrasound. Assessment and Plan - Assessment (1) Chest pain Code(s): R07.9 - Chest pain, unspecified Status: Acute (2) Hypertension Code(s): I10 - Essential (primary) hypertension Status: Acute (3) Hyperkalemia Code(s): E87.5 - Hyperkalemia Status: Acute (4) Acute kidney injury Code(s): N17.9 - Acute kidney failure, unspecified Status: Acute - Plan 68-year-old male past medical history significant for coronary artery disease with hx of NSTEMI 01/2018 status post emergent CABG x 3 admitted with complaints of chest pain and mild nausea //Chest pain in patient with known CAD s/p recent NSTEMI and emergent CABG x 3 //R/O ACS patient is currently chest pain free Initial troponin 0.03 -continue to trend cardiac enzymes and EKGs -Consult patients c engineer Dr. Coronel, appreciate assistance -continuous cardiac monitoring -ASA 81mg daily -BB and statin therapy -supplemental oxygen -NGT SL and/or Morphine IV prn chest pain -obtain 2D echocardiogram -give dose of Protonix for ?GI etiology -NPO p MN = Appreciate cardiology assistance. Chest pain has improved. Troponin could be secondary to [place] I. Jacinta monitor. = Cardiology following. Follow-up recommendations. //FAIZA //Creatinine 2.26, BUN 35 -hold ACEI -IVF hydration -obtain UA -avoid nephrotoxic agents -continue to monitor kidney function closely, repeat BMP in am = 05/25. Creatinine improving 1.9. Appreciate nephrology assistance. = 05/26. Creatinine improving to 1.7 as of yesterday. Follow-up labs today. //Hypertension, uncontrolled //Likely due in part to anxiety -resume home dose of Coreg 6.25mg BID -Hold home dose of Lisinopril 2/2 hyperkalemia and FAIZA -Clonidine prn with parameters -Xanax 0.25mg po TID prn anxiety -continue to monitor BP and adjust treatment accordingly = 05/25. Blood pressure variable. Amlodipine adjusted by nephrology. Continue to monitor. 05/26. Systolic blood pressures up to 1 need today. Will start on isosorbide for blood pressure control. //Hyperkalemia K 5.5 Given IV Calcium and insulin in the ED -repeat K level -Hold ACEI -avoid potassium containing foods = 05/25. Potassium 5.7. Appreciate nephrology assistance. = 05/26. Potassium improved as of yesterday. Continue to monitor. //COPD, not in acute exacerbation -Duonebs as needed -supplemental oxygen -continue to monitor respiratory status = Some shortness of breath after cleaning of the floor. Restart duo nebs. = Respiratory status stable on duo nebs. 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 Segura Discharge Planning: Hopefully home in the next 1-2 days if cleared by cardiology and nephrology. (1) Chest pain Qualifiers: Chest pain type: unspecified Qualified Code(s): R07.9 - Chest pain, unspecified (2) Hypertension Qualifiers: Hypertension type: unspecified Qualified Code(s): I10 - Essential (primary) hypertension
[2018-05-26 11:37] LABS: Albumin 3.7 g/dL (3.4-5.0); Calcium 8.2 mg/dL (8.5-10.1); Carbon Dioxide 22.9 meq/L (21.0-32.0); Phosphorus 3.1 mg/dL (2.5-4.9); Potassium 4.5 meq/L (3.5-5.1)
--- NOTE | 2018-05-26 13:44 | P.PNCA ---
Subjective Interval history: Patient reports feeling well today. No cardiac complaints. Did have some SOB this AM, relieved by nebulizer treatment. Uses inhalers regularly at home. Creatinine is trending down. Potassium is normal. He denies any chest pain since arriving to hospital. Discussed avoiding ibuprofen due to FAIZA. Physical Exam Vital signs: Vital Signs 05/25/18 14:25 05/25/18 16:00 05/25/18 16:08 Temperature 98.1 F Pulse Rate 89 82 Respiratory Rate 20 16 Blood Pressure 152/80 H Pulse Oximetry 93 L 97 98 05/25/18 20:00 05/26/18 00:00 05/26/18 04:00 Temperature 98.2 F 97.7 F 98.3 F Pulse Rate 90 88 91 H Respiratory Rate 18 18 18 Blood Pressure 184/88 H 163/85 H 171/90 H Pulse Oximetry 94 L 92 L 94 L 05/26/18 08:00 05/26/18 09:41 05/26/18 10:11 Temperature 97.7 F Pulse Rate 91 H 88 Respiratory Rate 16 16 Blood Pressure 185/103 H Pulse Oximetry 97 99 05/26/18 11:41 Temperature 97.9 F Pulse Rate 77 Respiratory Rate 18 Blood Pressure 125/70 Pulse Oximetry Intake & Output 05/25/18 05/26/18 05/26/18 18:59 06:59 18:59 Intake Total 600 / 600 0 / 0 Output Total 550 / 550 0 / 0 Balance 50 / 50 0 / 0 Weight 68.7 kg Intake: IV 600 / 600 NS Inj 1,000 ML @ 84 mls/hr IV. 600 / 600 CONT .[id number] [facility] Rx#:[id number] Oral 0 / 0 Output: Urine 550 / 550 0 / 0 Other: Date of Last Bowel Movement 05/24/18 05/25/18 - Constitutional no acute distress - Routine HEENT Exam Head: Present: normocephalic Eye: Present: PERRL ENT: Present: mucous membranes moist - Routine Neck Exam Present: supple - Routine Respiratory Exam Present: CTA bilaterally, diminished air movement - Routine Cardiovascular Exam Present: RRR - Routine Abdominal Exam Present: soft - Routine Skin Exam Present: intact Comments: midline chest incision - Routine Neurological Exam Present: alert, oriented X3 - Detailed Neurological Exam: Coma Scale Eye Opening: Spontaneous Verbal Response: Oriented Motor Response: Obey commands Karlos Coma Scale Total: 15 Assessment and Plan - Plan Chest pain-resolved HTN FAIZA Hyperkalemia Status post CABG 01/2018. Chest pain resolved-troponins mildly elevated 0.49, could have been secondary to FAIZA. Creatinine now trending down. Will follow up outpatient and consider nuclear stress test. BP better with Amlodipine and increased does of Coreg. Nephrology following. Creatinine improving, potassium normal. Pt is cleared for discharge from a cardiology standpoint. Will need to follow up in office in 1-2 weeks. Will consider stress test as outpatient. The patient was seen and evaluated by Dr. Coronel who completed face to face encounter and physical exam.
--- NOTE | 2018-05-26 13:50 | P.PNNP ---
Subjective Interval history: Renal function has not improved completely. Feels well. Non oliguric. <Irais Boogie - Last Filed: 05/26/18 13:46> Physical Exam Vital signs: Vital Signs 05/25/18 14:25 05/25/18 16:00 05/25/18 16:08 Temperature 98.1 F Pulse Rate 89 82 Respiratory Rate 20 16 Blood Pressure 152/80 H Pulse Oximetry 93 L 97 98 05/25/18 20:00 05/26/18 00:00 05/26/18 04:00 Temperature 98.2 F 97.7 F 98.3 F Pulse Rate 90 88 91 H Respiratory Rate 18 18 18 Blood Pressure 184/88 H 163/85 H 171/90 H Pulse Oximetry 94 L 92 L 94 L 05/26/18 08:00 05/26/18 09:41 05/26/18 10:11 Temperature 97.7 F Pulse Rate 91 H 88 Respiratory Rate 16 16 Blood Pressure 185/103 H Pulse Oximetry 97 99 05/26/18 11:41 Temperature 97.9 F Pulse Rate 77 Respiratory Rate 18 Blood Pressure 125/70 Pulse Oximetry Intake & Output 05/25/18 05/26/18 05/26/18 18:59 06:59 18:59 Intake Total 600 / 600 0 / 0 Output Total 550 / 550 0 / 0 Balance 50 / 50 0 / 0 Weight 68.7 kg Intake: IV 600 / 600 NS Inj 1,000 ML @ 84 mls/hr IV. 600 / 600 CONT .[id number] [facility] Rx#:[id number] Oral 0 / 0 Output: Urine 550 / 550 0 / 0 Other: Date of Last Bowel Movement 05/24/18 05/25/18 - Constitutional no acute distress, average body habitus, cooperative - Routine HEENT Exam Head: Present: normocephalic ENT: Present: mucous membranes moist - Routine Respiratory Exam Present: CTA bilaterally. Absent: accessory muscle use - Routine Cardiovascular Exam Present: RRR, S1, S2 - Routine Abdominal Exam Present: soft, normoactive bowel sounds - Routine Extremities Exam Present: full ROM, pulses intact, normal capillary refill. Absent: edema - Routine Skin Exam Present: intact, dry, warm - Routine Neurological Exam Present: alert, oriented X3, CN II-XII intact, moving all extremities <Irais Boogie - Last Filed: 05/26/18 13:46> Assessment and Plan - Assessment (1) Acute kidney injury Code(s): N17.9 - Acute kidney failure, unspecified Status: Acute Plan: Baseline creatinine 1.2 FAIZA possibly due to dehydration, possible ACS. He was also taking NSAIDs. He is non oliguric Not much change in renal function. Renal US negative. Hyperkalemia has corrected. Tolerating PO fluids. Avoid nephrotoxins, medications reviewed. Follow renal profile daily. If improvement he can be discharged. (2) Hyperkalemia Code(s): E87.5 - Hyperkalemia Status: Acute Plan: Due to reduction in GFR and taking lisinopril Corrected. (3) Hypertension Code(s): I10 - Essential (primary) hypertension Status: Acute Qualifiers: Hypertension type: unspecified Qualified Code(s): I10 - Essential (primary ) hypertension Plan: Hold lisinopril given FAIZA. On amlodipine and Coreg. He feels it is due to anxiety, normotensive most of the time. Can resume lisinopril in 1-2 weeks. (4) Chest pain Code(s): R07.9 - Chest pain, unspecified Status: Acute Qualifiers: Chest pain type: unspecified Qualified Code(s): R07.9 - Chest pain, unspecified Plan: Resolved. Cardiology following, do not feel it is ACS. Slightly elevated troponin in setting of FAIZA. Monitor. <Irais Boogie - Last Filed: 05/26/18 13:46> - Assessment (1) Acute kidney injury Code(s): N17.9 - Acute kidney failure, unspecified Status: Acute (2) Hyperkalemia Code(s): E87.5 - Hyperkalemia Status: Acute (3) Hypertension Code(s): I10 - Essential (primary) hypertension Status: Acute Qualifiers: Hypertension type: unspecified Qualified Code(s): I10 - Essential (primary ) hypertension (4) Chest pain Code(s): R07.9 - Chest pain, unspecified Status: Acute Qualifiers: Chest pain type: unspecified Qualified Code(s): R07.9 - Chest pain, unspecified - Attending Attestation patient was seen and examined. on 05/26/18. Agree with above assessment and plan. <Tim Palomino - Last Filed: 05/27/18 20:38>
[2018-05-26] MEDS ORDERED: Acetaminophen 325 MG Tablet PO PRN (13:51)
--- NOTE | 2018-05-26 15:17 | P.DS ---
Date of admission: 05/24/18 16:39 Primary care physician: JOHN Estrella Brief History from admission: This is a 68-year-old male with past medical history significant for hypertension, dyslipidemia, peripheral vascular disease, COPD and coronary artery disease status post NC 2 the last one being January of this year which resulted in emergent three-vessel CABG performed by Dr. 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 Patient states that around 1030 this morning he developed dull aching chest pain that seemed to originate from the mid upper back and radiated around to the chest with some mild associated nausea that patient attributes to anxiety. Patient states he took 3 baby aspirin at home prior to coming to the ED. patient states that while in the ED his symptoms started to subside and he currently has no complaints of chest pain. He denies any associated palpitations, diaphoresis, vomiting, dizziness, presyncope or shortness of breath. Patient states that pain he experienced earlier today was not similar to when he had his previous heart attacks. Patient denies any recent change in his medications or missing any of his medications. In the ED, patient's initial troponin was 0.03. Chest x-ray shows hyperinflation of lungs. Laboratory studies were significant for hypokalemia with potassium level 5.5 and acute kidney injury with creatinine of 2.26. Patient was given IV fluids as well as IV calcium gluconate and insulin. Patient's blood pressure is currently elevated which she states is very common for him when he gets anxious. He is currently satting 99% on room air. Pulse is 72. Respiratory rate is 16. DS: Diagnosis - Discharge Diagnosis (1) Chest pain Status: Acute (2) Hypertension Status: Acute (3) Hyperkalemia Status: Acute (4) Acute kidney injury Status: Acute DS: Medications - Discharge Medications Prescriptions: amlodipine [Norvasc] 10 mg PO DAILY 30 Days #30 tab carvedilol [Coreg] 12.5 mg PO BID 30 Days #60 tab isosorbide mononitrate 30 mg PO DAILY 30 Days #30 tab DS: Summary Hospital Course: Due to chest pain and mild troponin elevation up to 0.49, cardiology was consulted. Cardiology feels that troponin likely elevated secondary to acute kidney injury Patient found to have acute kidney injury with creatinine 2.26. Nephrology was consulted, ANGEL inhibitor was held. Creatinine improved to 1.7. Patient found to have elevated blood pressures for which amlodipine and isosorbide were added. Patient will need to follow with neurology, cardiology, cardiothoracic surgery as outpatient. For problem-based summary from most recent progress note, please see below. 68-year-old male past medical history significant for coronary artery disease with hx of NSTEMI 01/2018 status post emergent CABG x 3 admitted with complaints of chest pain and mild nausea //Chest pain in patient with known CAD s/p recent NSTEMI and emergent CABG x 3 //R/O ACS patient is currently chest pain free Initial troponin 0.03 -continue to trend cardiac enzymes and EKGs -Consult patients telecommunications administrator Dr. Coronel, appreciate assistance -continuous cardiac monitoring -ASA 81mg daily -BB and statin therapy -supplemental oxygen -NGT SL and/or Morphine IV prn chest pain -obtain 2D echocardiogram -give dose of Protonix for ?GI etiology -NPO p MN = Appreciate cardiology assistance. Chest pain has improved. Troponin could be secondary to [place] Bj Work[place] monitor. = Cardiology following. Follow-up recommendations. //FAIZA //Creatinine 2.26, BUN 35 -hold ACEI -IVF hydration -obtain UA -avoid nephrotoxic agents -continue to monitor kidney function closely, repeat BMP in am = 05/25. Creatinine improving 1.9. Appreciate nephrology assistance. = 05/26. Creatinine improving to 1.7 as of yesterday. Follow-up labs today. //Hypertension, uncontrolled //Likely due in part to anxiety -resume home dose of Coreg 6.25mg BID -Hold home dose of Lisinopril 2/2 hyperkalemia and FAIZA -Clonidine prn with parameters -Xanax 0.25mg po TID prn anxiety -continue to monitor BP and adjust treatment accordingly = 05/25. Blood pressure variable. Amlodipine adjusted by nephrology. Continue to monitor. 05/26. Systolic blood pressures up to 1 need today. Will start on isosorbide for blood pressure control. //Hyperkalemia K 5.5 Given IV Calcium and insulin in the ED -repeat K level -Hold ACEI -avoid potassium containing foods = 05/25. Potassium 5.7. Appreciate nephrology assistance. = 05/26. Potassium improved as of yesterday. Continue to monitor. //COPD, not in acute exacerbation -Duonebs as needed -supplemental oxygen -continue to monitor respiratory status = Some shortness of breath after cleaning of the floor. Restart duo nebs. = Respiratory status stable on duo nebs. 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 Segura Discharge Planning: Hopefully home in the next 1-2 days if cleared by cardiology and nephrology. - Time Spent with Patient Total time spent providing and/or coordinating discharge services: Greater than 30 minutes - Quality: VTE Deep Vein Thrombosis/Pulmonary Embolism Present on Admission: No Exam Vital signs: Vital Signs 05/25/18 16:00 05/25/18 16:08 05/25/18 20:00 Temperature 98.1 F 98.2 F Pulse Rate 89 82 90 Respiratory Rate 20 16 18 Blood Pressure 152/80 H 184/88 H Pulse Oximetry 97 98 94 L 05/26/18 00:00 05/26/18 04:00 05/26/18 08:00 Temperature 97.7 F 98.3 F 97.7 F Pulse Rate 88 91 H 97 H Respiratory Rate 18 18 16 Blood Pressure 163/85 H 171/90 H 185/103 H Pulse Oximetry 92 L 94 L 05/26/18 09:41 05/26/18 10:11 05/26/18 11:41 Temperature 97.9 F Pulse Rate 88 77 Respiratory Rate 16 18 Blood Pressure 125/70 Pulse Oximetry 97 99 05/26/18 12:00 Temperature 98.3 F Pulse Rate 79 Respiratory Rate 18 Blood Pressure 135/83 Pulse Oximetry 95 Intake & Output 05/25/18 05/26/18 05/26/18 18:59 06:59 18:59 Intake Total 600 / 600 0 / 0 Output Total 550 / 550 0 / 0 Balance 50 / 50 0 / 0 Weight 68.7 kg Intake: IV 600 / 600 NS Inj 1,000 ML @ 84 mls/hr IV. 600 / 600 CONT .[id number] [facility] Rx#:[id number] Oral 0 / 0 Output: Urine 550 / 550 0 / 0 Other: Date of Last Bowel Movement 05/24/18 05/25/18 Results Procedures completed during hospitalization: no invasive procedures. Labs on day of discharge: Labs from last 24 hours 05/26/18 05/26/18 05/25/18 09:55 07:30 19:45 WBC 10.7 RBC 4.50 Hgb 13.7 Hct 40.5 MCV 90.1 MCH 30.5 MCHC 33.9 RDW 15.0 Plt Count 230 MPV 8.4 Sodium 139 141 Potassium 4.5 4.4 D Chloride 107 111 H Carbon Dioxide 22.9 17.8 L Anion Gap 9 12 BUN 24 H 26 H Creatinine 1.80 H 1.74 H Estimated GFR 38 L 39 L Random Glucose 151 H 104 Hemoglobin A1c Calcium 8.2 L 8.4 L Phosphorus 3.1 2.8 Albumin 3.7 3.7 05/25/18 07:25 WBC RBC Hgb Hct MCV MCH MCHC RDW Plt Count MPV Sodium Potassium Chloride Carbon Dioxide Anion Gap BUN Creatinine Estimated GFR Random Glucose Hemoglobin A1c 6.2 H Calcium Phosphorus Albumin - Impressions ITS Impressions Chest X-Ray 05/24/18 14:19 CONCLUSION: Hyperinflation. Abdomen/Bladder Ultrasound 05/25/18 00:00 CONCLUSION: 1. Unremarkable bilateral renal ultrasound. Discharge Plan - Discharge Disposition Patient Disposition: Discharge Home - Discharge Condition Condition: Stable - Discharge Order Discharge Orders: Discharge Order (Routine); Ordered 05/26/18 Ordered By: Hamlet Wolfe Cardiology Clear for Discharge (Routine); Ordered 05/26/18 Ordered By: December Shadeed - Discharge Details Anticipated Discharge Date: 05/26/18 - Physicians Team Primary Care Provider: Ginette Basilio Attending Provider: Hamlet Wolfe Other Providers: Michele Coronel MD ; Tim Palomino MD ; [employer], Insurance
== END 2018-05-26 16:15 | disposition home or self-care (01) ==
LOC: NEPC 14:05 → INTOOBSV 16:39 → NEDA 16:39 → N04 18:14
PROVIDERS: ADMIT Internal Medicine; ATTEND Internal Medicine